=== PATIENT | male | born 1940 | race Caucasian/White ===

== ENCOUNTER 2017-01-18 13:44 | Outpatient (RCR) | payer MEDICARE, OTHER ==
[~2017-01-18 13:44] MED LIST: AML5T; AMLO10TA82 PO; AMLO5TAB2 PO; ASP81TEC PO; ASPI-586 PO; BISA5TAB8 PO; CHLO-159 PO; CIPR-17 PO; CIPR500T78 PO; DXZS4T; HYDR-2890 PO; HYDR-707 PO; HYOS0.1216 PO; IBUP-15 PO; LISI20TA PO; LISI40TA PO; MELOXICAM 7.5 MG; PANT20TA3 PO; PHEN200T27 PO; [UNRECOGNIZED DRUG - CODE] PO; [UNRECOGNIZED DRUG - OTHER]
--- OUTSIDE RECORDS SUMMARY | 2017-01-18 13:47 | XMS REPORT | Continuity of Care Document ---
Author Author [facility] Organization [facility] Address Unknown Phone Unavailable Care Team Providers Care Erp Programmer Name Role Phone MARINO SILVEIRA MD PCP Insurance Providers Payer Name Policy Number Subscriber Name Relationship [employer] [id number] Roberto Manley Sr 17 Self / Same As Patient Comm Crossover Enter Ins Name [id number] Roberto Manley Sr 17 Self / Same As Patient Advance Directives Directive Response Recorded Date/Time Advance Directives No 12/08/14 6:10am Health Care Power of Oracle R12 Developer No 12/08/14 6:10am Organ Donor No 12/08/14 6:10am Problems No known problems or medical conditions. Medications Medication Dose Route Sig Days/Qty Instructions Order Date Discontinued Date Status Amlodipine Besylate 10/23/07 11/23/11 Discontinued Doxazosin Mesylate 10/23/07 11/23/11 Discontinued [Mioxican 7.5MG] 10/23/07 11/23/11 Discontinued [Chloratab 4MG] 10/23/07 11/23/11 Discontinued Amlodipine Besylate (Norvasc 10 Mg) 10 Mg PO DAILY 11/23/11 Active Lisinopril 20 Mg PO DAILY 11/23/11 Active [Chloratab] 1 Tab PO DAILY 11/23/11 12/03/14 Discontinued Ciprofloxacin 1 Tab PO DAILY 11/29/11 12/14/11 Discontinued Acetaminophen/Hydrocodone Bitart 1 - 2 Each PO Q 4 - 6 HR PRN 45 Qty 12/08/14 Discontinued Bisacodyl 5 Mg PO DAILY 01/10/12 12/03/14 Discontinued Ibuprofen 200 Mg PO BEDTIME 4 Qty take 4 tabs at bedtime 01/10/12 Discontinued Chlorpheniramine Maleate 4 Mg PO DAILY 12/03/14 Active Ciprofloxacin HCl 500 Mg PO TWICE A DAY 14 Qty DAY FOR 7 DAYS. USE ALL OF THIS 12/08/14 Active Phenazopyridine HCl 1 Each PO TID PRN 20 Qty FOR BLADDER SPASMS. Active Hyoscyamine Sulfate 1-2 Each PO Q4HR PRN 30 Qty 12/08/14 Active Hydrocodone Bit/Acetaminophen 1-2 Tab PO EVERY 4HRS For Pain 20 Qty MAY TAKE 1 OR 2 TABLETS BY MOUTH 12/08/14 Active Social History Social History Problem Response Recorded Date/Time Recent Foreign Travel N [place] 10/13/2014 1:22pm Hospital Discharge Instructions No hospital discharge instructions. Plan of Care No plan of care. Functional Status No functional status results. Allergies, Adverse Reactions, Alerts Allergen Type Severity Reaction Status Last Updated Penicillins ([id number]) Allergy Intermediate HIVES Active 10/23/07 Immunizations Name Given Type Date of Pneumonia Vaccine 11/26/12 Historical Date of Influenza Vaccine 09/14/14 Historical Vital Signs No known vital signs results. Results No known relevant diagnostic tests, laboratory data and/or discharge summary. Procedures No known history of procedures. Encounters Encounter Location Date/Time Discharged [facility] 12/14/14 1:09pm
[2017-01-18 14:19] LABS: BASOPHILS # (AUTO) 0.1 10^3/uL (0.0-0.1); BASOPHILS % (AUTO) 1 % (0-10); EOSINOPHILS # (AUTO) 0.2 10^3/uL (0.0-0.3); EOSINOPHILS % (AUTO) 3 % (0-10); LYMPHOCYTES % (AUTO) 24 % (12-44); MEAN CORPUSCULAR HEMOGLOBIN 31 PG (25-34); MEAN CORPUSCULAR HGB CONC 33 G/DL (32-36); MEAN CORPUSCULAR VOLUME 92 FL (80-99); MEAN PLATELET VOLUME 10.7 FL (7.4-10.4); MONOCYTES # (AUTO) 0.6 X 10^3 (0.0-1.0); MONOCYTES % (AUTO) 7 % (0-12); NEUTROPHILS # (AUTO) 5.4 X 10^3 (1.8-7.8); NEUTROPHILS % (AUTO) 66 % (42-75); PLATELET COUNT 241 10^3/uL (130-400); RED BLOOD COUNT 4.13 10^6/uL (4.35-5.85); RED CELL DISTRIBUTION WIDTH 12.9 % (10.0-14.5); WHITE BLOOD COUNT 8.3 10^3/uL (4.3-11.0)
[2017-01-18 14:40] LABS: ALANINE AMINOTRANSFERASE 20 U/L (0-55); ALBUMIN 4.2 G/DL (3.2-4.5); ANION GAP 10 MMOL/L (5-14); ASPARTATE AMINO TRANSFERASE 36 U/L (5-34); BILIRUBIN,TOTAL 0.6 MG/DL (0.1-1.0); BLOOD UREA NITROGEN 19 MG/DL (7-18); BUN/CREATININE RATIO 21; CALCIUM 9.1 MG/DL (8.5-10.1); CARBON DIOXIDE 24 MMOL/L (21-32); CHLORIDE 105 MMOL/L (98-107); CREATININE SERUM 0.92 MG/DL (0.60-1.30); GFR ESTIMATED > 60; GLUCOSE 93 MG/DL (70-105); POTASSIUM 4.4 MMOL/L (3.6-5.0); SODIUM 139 MMOL/L (135-145); TOTAL PROTEIN 6.8 G/DL (6.4-8.2)
[2017-01-18 15:44] LABS: BILIRUBIN,URINE NEGATIVE (NEGATIVE); KETONES,URINE NEGATIVE (NEGATIVE); LEUKOCYTE ESTERASE ,URINE NEGATIVE (NEGATIVE); NITRITE,URINE NEGATIVE (NEGATIVE); PH,URINE 7 (5-9); PROTEIN,URINE NEGATIVE (NEGATIVE); UROBILINOGEN,URINE NORMAL (NORMAL)
[2017-01-18 15:52] LABS: SQUAMOUS EPITHELIAL CELL,UR RARE /HPF
== END 2017-04-18 | disposition home or self-care (01) ==
LOC: ONC 13:44
PROVIDERS: ATTEND Internal Medicine Hematology & Oncology
DX: C34.11 Malignant neoplasm of upper lobe, right bronchus or lung (principal); Z85.51 Personal history of malignant neoplasm of bladder; I10 Essential (primary) hypertension; N40.0 Benign prostatic hyperplasia without lower urinary tract symptoms; Z79.899 Other long term (current) drug therapy
CPT/HCPCS: 36415; 80053; 81000; 84153; 85025; 99213

== ENCOUNTER → 2017-07-12 | Outpatient (CLI) | payer MEDICARE, OTHER ==
[~2017-07-12] MED LIST changes: +BARIUM SUSPENSION 2.1% (VANILLA SILQ) 450 ML PO ONE; +IOHEXOL 350 MG/ML 100 ML (OMNIPAQUE 350) VIAL IV ONE; +NS 100 ML (IVPB) BAG IV ONE
--- NOTE | 2017-07-12 11:42 | Diagnostic Imaging Report ---
PROCEDURE: CT chest and abdomen with and without contrast TECHNIQUE: Multiple axial CT images through the thorax and abdomen were obtained with and without intravenous contrast. INDICATION: Lung/bladder cancer. The previous CT chest/ abdomen/ pelvis exam of 07/07/2016, noted postsurgical changes involving the periphery of the right lung base. There was scar formation involving the lung in this area and a portion of the right fifth and sixth ribs had been surgically resected. Those findings are again evident on this study and do not seem to have changed significantly. The lungs remain generally clear and well aerated otherwise. There is no sign of failure, pneumonia, or of a pleural effusion. There is no parenchymal lung mass identified. The heart size is stable and within normal limits. Aorta is not abnormally dilated, and there is no sign of a dissection. There is no defect within the pulmonary arteries to indicate a pulmonary embolus. There is no mediastinal or hilar adenopathy. The thyroid gland is generally unremarkable. The 4.9 x 7.6-cm hiatal hernia seen previously is again evident. The stomach itself is partially filled with oral contrast and difficult to assess. The liver, spleen, pancreas, adrenals, kidneys, gallbladder, aorta, and inferior vena cava show no sign of an acute abnormality. There is no mass or free fluid collection noted. The sclerotic lesions in the right pelvis seen previously are again evident and no different. There is no sign of an acute bony abnormality. IMPRESSION: 1. The appearance of the chest and abdomen appear stable when compared to the prior exam. There is no evidence for an acute abnormality, and there is no sign of neoplastic disease. 2. The postsurgical changes involving the right thorax and right lung noted on the prior exam are again evident and no different. 3. The large hiatal hernia seen previously appears stable. Dictated by: Dictated on workstation # [id number]
== END ==
LOC: RAD 09:16
PROVIDERS: ATTEND Internal Medicine Hematology & Oncology
DX: C34.11 Malignant neoplasm of upper lobe, right bronchus or lung (principal); K44.9 Diaphragmatic hernia without obstruction or gangrene; Z98.890 Other specified postprocedural states
CPT/HCPCS: 71270; 74170

== ENCOUNTER 2017-07-19 12:39 | Outpatient (RCR) | payer MEDICARE, OTHER ==
[2017-07-10 13:48] LABS: BASOPHILS # (AUTO) 0.1 10^3/uL (0.0-0.1); BASOPHILS % (AUTO) 1 % (0-10); EOSINOPHILS # (AUTO) 0.3 10^3/uL (0.0-0.3); EOSINOPHILS % (AUTO) 3 % (0-10); LYMPHOCYTES # (AUTO) 2.4 X 10^3 (1.0-4.0); LYMPHOCYTES % (AUTO) 30 % (12-44); MEAN CORPUSCULAR HEMOGLOBIN 31 PG (25-34); MEAN CORPUSCULAR HGB CONC 32 G/DL (32-36); MEAN CORPUSCULAR VOLUME 94 FL (80-99); MEAN PLATELET VOLUME 10.7 FL (7.4-10.4); MONOCYTES # (AUTO) 0.6 X 10^3 (0.0-1.0); MONOCYTES % (AUTO) 7 % (0-12); NEUTROPHILS # (AUTO) 4.8 X 10^3 (1.8-7.8); NEUTROPHILS % (AUTO) 59 % (42-75); PLATELET COUNT 234 10^3/uL (130-400); RED CELL DISTRIBUTION WIDTH 13.5 % (10.0-14.5); WHITE BLOOD COUNT 8.1 10^3/uL (4.3-11.0)
[2017-07-10 14:30] LABS: ALANINE AMINOTRANSFERASE 16 U/L (0-55); ANION GAP 7 MMOL/L (5-14); ASPARTATE AMINO TRANSFERASE 29 U/L (5-34); BILIRUBIN,TOTAL 0.9 MG/DL (0.1-1.0); BLOOD UREA NITROGEN 17 MG/DL (7-18); BUN/CREATININE RATIO 19; CALCIUM 9.5 MG/DL (8.5-10.1); CARBON DIOXIDE 29 MMOL/L (21-32); CHLORIDE 106 MMOL/L (98-107); CREATININE SERUM 0.88 MG/DL (0.60-1.30); GFR ESTIMATED > 60; GLUCOSE 123 MG/DL (70-105); POTASSIUM 4.6 MMOL/L (3.6-5.0); SODIUM 142 MMOL/L (135-145); TOTAL PROTEIN 6.6 GM/DL (6.4-8.2)
[~2017-07-19 12:39] MED LIST changes: -BARIUM SUSPENSION 2.1% (VANILLA SILQ) 450 ML PO ONE; -IOHEXOL 350 MG/ML 100 ML (OMNIPAQUE 350) VIAL IV ONE; -NS 100 ML (IVPB) BAG IV ONE
== END 2017-08-25 | disposition home or self-care (01) ==
LOC: ONC 12:39
PROVIDERS: ATTEND Internal Medicine Hematology & Oncology
DX: C34.11 Malignant neoplasm of upper lobe, right bronchus or lung (principal); Z85.51 Personal history of malignant neoplasm of bladder; I10 Essential (primary) hypertension; N40.0 Benign prostatic hyperplasia without lower urinary tract symptoms; Z79.899 Other long term (current) drug therapy
CPT/HCPCS: 36415; 80053; 84153; 85025; 99213

== ENCOUNTER 2018-01-22 13:11 | Outpatient (RCR) | payer MEDICARE, OTHER ==
[2018-01-22 13:16] LABS: BASOPHILS # (AUTO) 0.1 10^3/uL (0.0-0.1); BASOPHILS % (AUTO) 1 % (0-10); EOSINOPHILS # (AUTO) 0.3 10^3/uL (0.0-0.3); EOSINOPHILS % (AUTO) 3 % (0-10); HEMATOCRIT 37 % (40-54); HEMOGLOBIN 12.5 G/DL (13.3-17.7); LYMPHOCYTES # (AUTO) 2.4 X 10^3 (1.0-4.0); LYMPHOCYTES % (AUTO) 28 % (12-44); MEAN CORPUSCULAR HEMOGLOBIN 32 PG (25-34); MEAN CORPUSCULAR HGB CONC 34 G/DL (32-36); MEAN CORPUSCULAR VOLUME 94 FL (80-99); MEAN PLATELET VOLUME 10.7 FL (7.4-10.4); MONOCYTES # (AUTO) 0.6 X 10^3 (0.0-1.0); MONOCYTES % (AUTO) 6 % (0-12); NEUTROPHILS # (AUTO) 5.3 X 10^3 (1.8-7.8); NEUTROPHILS % (AUTO) 61 % (42-75); PLATELET COUNT 244 10^3/uL (130-400); RED BLOOD COUNT 3.97 10^6/uL (4.35-5.85); RED CELL DISTRIBUTION WIDTH 13.2 % (10.0-14.5); WHITE BLOOD COUNT 8.6 10^3/uL (4.3-11.0)
[2018-01-22 13:33] LABS: ALANINE AMINOTRANSFERASE 18 U/L (0-55); ALBUMIN 4.3 GM/DL (3.2-4.5); ALKALINE PHOSPHATASE 47 U/L (40-136); BILIRUBIN,TOTAL 0.8 MG/DL (0.1-1.0); BUN/CREATININE RATIO 23; CALCIUM 9.8 MG/DL (8.5-10.1); CARBON DIOXIDE 28 MMOL/L (21-32); CHLORIDE 104 MMOL/L (98-107); CREATININE SERUM 0.93 MG/DL (0.60-1.30); GFR ESTIMATED > 60; GLUCOSE 88 MG/DL (70-105); POTASSIUM 4.7 MMOL/L (3.6-5.0); SODIUM 140 MMOL/L (135-145); TOTAL PROTEIN 7.1 GM/DL (6.4-8.2)
== END 2018-04-22 | disposition home or self-care (01) ==
LOC: ONC 13:11
PROVIDERS: ATTEND Internal Medicine Hematology & Oncology
DX: Z08 Encounter for follow-up examination after completed treatment for malignant neoplasm (principal); Z85.118 Personal history of other malignant neoplasm of bronchus and lung; Z85.51 Personal history of malignant neoplasm of bladder; I10 Essential (primary) hypertension; N40.0 Benign prostatic hyperplasia without lower urinary tract symptoms; K44.9 Diaphragmatic hernia without obstruction or gangrene; Z79.899 Other long term (current) drug therapy; Z98.890 Other specified postprocedural states; Z92.21 Personal history of antineoplastic chemotherapy
CPT/HCPCS: 36415; 80053; 85025

== ENCOUNTER → 2018-07-15 | Outpatient (CLI) | payer MEDICARE, OTHER ==
--- NOTE | 2018-07-15 10:00 | Diagnostic Imaging Report ---
PROCEDURE: CT chest without contrast. TECHNIQUE: Multiple contiguous axial images were obtained through the chest without the use of intravenous contrast. INDICATION: Lung carcinoma. Comparison is made with prior CT chest from 07/12/2017. A low dose protocol was used. Overall image quality is limited due to low-dose technique. No definite axillary lymphadenopathy is seen. Hilar and mediastinal evaluation is limited without intravenous contrast but no gross abnormality seen. There are some calcified lymph nodes in the right hilum and left hilum likely owing to prior granulomatous exposure. Coronary arterial opacifications are present. No pericardial or pleural fluid is seen. There is a large hiatal hernia. Postsurgical changes in the right hemithorax with area of scarring in the lateral portion of the right base is again noted and similar to the prior study. There is some scarring in the lingula as well. No discrete mass is identified. The central airways are patent. IMPRESSION: Stable noncontrast CT chest when compared with exam from one year earlier. Parenchymal scarring is again seen with postsurgical changes. No recurrent mass or evidence of thoracic lymphadenopathy is detected. Dictated by: Dictated on workstation # [id number]
== END ==
LOC: RAD 08:35
PROVIDERS: ATTEND Nurse Practitioner Adult Health
DX: C34.11 Malignant neoplasm of upper lobe, right bronchus or lung (principal)
CPT/HCPCS: 71250

== ENCOUNTER 2018-07-24 12:55 | Outpatient (RCR) | payer MEDICARE, OTHER ==
[2018-07-11 13:35] LABS: BASOPHILS # (AUTO) 0.1 10^3/uL (0.0-0.1); BASOPHILS % (AUTO) 1 % (0-10); EOSINOPHILS # (AUTO) 0.2 10^3/uL (0.0-0.3); EOSINOPHILS % (AUTO) 3 % (0-10); HEMATOCRIT 35 % (40-54); HEMOGLOBIN 11.6 G/DL (13.3-17.7); LYMPHOCYTES # (AUTO) 2.4 X 10^3 (1.0-4.0); LYMPHOCYTES % (AUTO) 30 % (12-44); MEAN CORPUSCULAR HEMOGLOBIN 31 PG (25-34); MEAN CORPUSCULAR HGB CONC 33 G/DL (32-36); MEAN CORPUSCULAR VOLUME 93 FL (80-99); MEAN PLATELET VOLUME 10.6 FL (7.4-10.4); MONOCYTES # (AUTO) 0.5 X 10^3 (0.0-1.0); MONOCYTES % (AUTO) 7 % (0-12); NEUTROPHILS # (AUTO) 4.7 X 10^3 (1.8-7.8); NEUTROPHILS % (AUTO) 59 % (42-75); PLATELET COUNT 248 10^3/uL (130-400); RED BLOOD COUNT 3.76 10^6/uL (4.35-5.85); RED CELL DISTRIBUTION WIDTH 13.6 % (10.0-14.5); WHITE BLOOD COUNT 7.9 10^3/uL (4.3-11.0)
[2018-07-11 13:56] LABS: ALANINE AMINOTRANSFERASE 20 U/L (0-55); ALKALINE PHOSPHATASE 41 U/L (40-136); BILIRUBIN,TOTAL 0.8 MG/DL (0.1-1.0); BUN/CREATININE RATIO 18; CALCIUM 9.5 MG/DL (8.5-10.1); CARBON DIOXIDE 27 MMOL/L (21-32); CHLORIDE 104 MMOL/L (98-107); CREATININE SERUM 0.94 MG/DL (0.60-1.30); GFR ESTIMATED > 60; GLUCOSE 93 MG/DL (70-105); POTASSIUM 4.6 MMOL/L (3.6-5.0); SODIUM 139 MMOL/L (135-145); TOTAL PROTEIN 6.5 GM/DL (6.4-8.2)
[~2018-07-24 12:55] MED LIST changes: -AMLO5TAB2 PO; +AMLO5TAB7 PO
== END 2018-07-26 | disposition home or self-care (01) ==
LOC: ONC 12:55
PROVIDERS: ATTEND Internal Medicine Hematology & Oncology
DX: Z08 Encounter for follow-up examination after completed treatment for malignant neoplasm (principal); Z85.118 Personal history of other malignant neoplasm of bronchus and lung; Z85.51 Personal history of malignant neoplasm of bladder; I10 Essential (primary) hypertension; N40.0 Benign prostatic hyperplasia without lower urinary tract symptoms; K44.9 Diaphragmatic hernia without obstruction or gangrene; Z79.899 Other long term (current) drug therapy; Z98.890 Other specified postprocedural states; Z92.21 Personal history of antineoplastic chemotherapy
CPT/HCPCS: 36415; 80053; 85025; 99213

== ENCOUNTER 2019-01-10 05:39 | Outpatient (CLI) | payer MEDICARE, OTHER ==
[~2019-01-10] VITALS: Ht 177.8 cm; Wt 70.3 kg
== END 2019-01-10 15:13 | disposition home or self-care (01) ==
LOC: PREOP 05:39
PROVIDERS: ATTEND Urology
DX: Z01.818 Encounter for other preprocedural examination (principal)

== ENCOUNTER 2019-01-14 06:06 | Day surgery (SDC) | payer MEDICARE, OTHER ==
[~2019-01-14] VITALS: Ht 177.8 cm; Wt 70.3 kg
[~2019-01-14 06:06] MED LIST changes: +AMLO10TA7 PO; -AMLO5TAB7 PO; +AMLO5TAB9 PO; +CHLO4TAB36 PO; +MULT-1056 PO
--- OUTSIDE RECORDS SUMMARY | 2019-01-14 06:10 | XMS REPORT ---
Author Author PHUC STRAUSS [facility] Address Unknown Care Team Providers Care Mobile Service Rv Technician Name Role Phone PHUC STRAUSS Unavailable PROBLEMS Unknown Problems ALLERGIES No Information ENCOUNTERS Encounter Location Date Diagnosis [facility] [id number] [place] [address] [id number] Sep, Encounter for dental examination Z01.[address] [facility] [id number] [place] [address] [id number] March, Dental examination Z01.[address] [facility] [id number] [place] [address] [id number] Dec, Encounter for dental examination Z01.20 IMMUNIZATIONS No Known Immunizations SOCIAL HISTORY Never Assessed REASON FOR VISIT shantel PLAN OF CARE VITAL SIGNS MEDICATIONS No Known Medications RESULTS No Results PROCEDURES Procedure Date Ordered Result Body Site COMP ORAL EVALUATION - NEW/EST PT April 13, 2017 INTRAORL-PERIAPICAL 1 FILM [id number] April 13, 2017 INSTRUCTIONS MEDICATIONS ADMINISTERED No Known Medications MEDICAL (GENERAL) HISTORY Type Description Date Medical History High Blood Pressure Medical History Rt hip replacment 7 years ago Medical History Bladder Cancer/Chemo Surgical History Bladder Cancer Surgical History 3/4 Rt lung removed 2011 Surgical History Rt Hip replacment 2009 Hospitalization History Hospitalization for surgery only
--- OUTSIDE RECORDS SUMMARY | 2019-01-14 06:10 | XMS REPORT ---
Author Author PIETRO ORR Organization [facility] Address [address] [place] [address] Care Team Providers Care Last Repairer Helper Name Role Phone PIETRO ORR Unavailable PROBLEMS Type Condition ICD9-CM Code [id number] Code Onset Dates Condition Status SNOMED Code Problem Encounter for dental examination Z01.20 Active [id number] ALLERGIES Substance Reaction Event Type Date Status Penicillin V Potassium Unknown Drug Allergy Dec, Active SOCIAL HISTORY Never Assessed PLAN OF CARE Activity Details Follow Up 6 Months Reason:Recall VITAL SIGNS Heart Rate 61 bpm 2017-01-09 Blood pressure systolic 155 mmHg 2017-01-09 Blood pressure diastolic 79 mmHg 2017-01-09 MEDICATIONS Medication Instructions Dosage Frequency Start Date End Date Duration Status Lisinopril 40 MG Orally Once a day 1 tablet 24h Active Pantoprazole Sodium 20 MG Orally Once a day 2 tablets 24h Active ASA 1 tab Active Amlodipine & Diet Manage Prod Active Chlor-Trimeton 4 MG Orally every 6 hrs 1 tablet as needed 6h Active RESULTS No Results PROCEDURES Procedure Date Ordered Result Body Site LTD ORAL EVALUATION - PROBLEM FOCUS Jan 09, 2017 PROPHYLAXIS - ADULT Jan 09, 2017 TOPICAL FLUORIDE VARNISH Jan 09, 2017 IMMUNIZATIONS No Known Immunizations MEDICAL (GENERAL) HISTORY Type Description Date Medical History High Blood Pressure Medical History Rt hip replacment 7 years ago Medical History Bladder Cancer/Chemo Surgical History Bladder Cancer Surgical History 3/4 Rt lung removed 2011 Surgical History Rt Hip replacment 2009 Hospitalization History Hospitalization for surgery only
--- OUTSIDE RECORDS SUMMARY | 2019-01-14 06:12 | XMS REPORT | Continuity of Care Document ---
Author Author [facility] Organization [facility] Address Unknown Phone Unavailable Allergies Active Description Code Type Severity Reaction Onset Reported/Identified Relationship to Patient Clinical Status Yes NO KNOWN DRUG ALLERGIES UNKNOWN NO KNOWN DRUG ALLERG Yes Penicillins [id number] Drug Allergy Moderate HIVES 10/23/2007 Medications There is no data. Problems Date Dx Coded Attending Type Code Diagnosis Diagnosed By 12/21/2011 Ot 162.3 12/21/2011 Ot V10.51 12/21/2011 Ot V15.82 12/21/2011 Ot V64.41 04/16/2012 Ot 162.3 04/16/2012 Ot 401.9 04/16/2012 Ot 600.00 04/16/2012 Ot V10.51 04/16/2012 Ot V58.11 04/16/2012 Ot V58.69 07/22/2012 Ot 162.3 07/22/2012 Ot 401.9 07/22/2012 Ot 600.00 07/22/2012 Ot V10.51 07/22/2012 Ot V58.69 10/24/2012 Ot 162.3 10/24/2012 Ot 401.9 10/24/2012 Ot 600.00 10/24/2012 Ot V10.51 10/24/2012 Ot V58.69 10/24/2012 Ot V58.81 01/26/2013 Ot 162.3 01/26/2013 Ot 401.9 01/26/2013 Ot 600.00 01/26/2013 Ot V10.51 01/26/2013 Ot V58.69 01/26/2013 Ot V58.81 05/08/2013 Ot 162.3 05/08/2013 Ot 401.9 05/08/2013 Ot 600.00 05/08/2013 Ot V10.51 05/08/2013 Ot V58.69 05/08/2013 Ot V58.81 10/12/2014 MARINO SILVEIRA MD Ot 162.3 10/12/2014 MARINO SILVEIRA MD Ot 401.9 10/12/2014 RAOUL BOWDEN, MARINO K Ot 600.00 10/12/2014 RAOUL BOWDEN, MARINO K Ot V10.51 10/12/2014 RAOUL BOWDEN, MARINO K Ot V58.69 10/12/2014 RAOUL BOWDEN, MARINO K Ot V58.81 10/13/2014 RAOUL BOWDEN, MARINO K Ot 162.3 10/13/2014 RAOUL BOWDEN, MARINO K Ot 401.9 10/13/2014 RAOUL BOWDEN, MARINO K Ot 600.00 10/13/2014 RAOUL BOWDEN, MARINO K Ot V10.51 10/13/2014 RAOUL BOWDEN, MARINO K Ot V58.69 10/13/2014 RAOUL BOWDEN, MARINO K Ot V58.81 10/14/2014 RAOUL BOWDEN, MARINO K Ot 162.3 10/14/2014 RAOUL BOWDEN, MARINO K Ot 401.9 10/14/2014 RAOUL BOWDEN, MARINO K Ot 600.00 10/14/2014 RAOUL BOWDEN, MARINO K Ot V10.51 10/14/2014 RAOUL BOWDEN, MARINO K Ot V58.69 10/14/2014 RAOUL BOWDEN, MARINO K Ot V58.81 11/25/2014 RAOUL BOWDEN, MARINO K Ot 162.3 11/25/2014 RAOUL BOWDEN, MARINO K Ot 401.9 11/25/2014 RAOUL BOWDEN, MARINO K Ot 600.00 11/25/2014 RAOUL BOWDNE, MARINO K Ot V10.51 11/25/2014 RAOUL BOWDEN, MARINO K Ot V58.69 11/25/2014 RAOUL BOWDEN, MARINO K Ot V58.81 12/01/2014 RAOUL BOWDEN, MARINO Barbara Ot 162.3 12/01/2014 RAOUL BOWDEN, MARINO K Ot 401.9 12/01/2014 RAOUL BOWDEN, MARINO K Ot 600.00 12/01/2014 RAOUL BOWDEN, MARINO K Ot V10.51 12/01/2014 RAOUL BOWDEN, MARINO K Ot V58.69 12/01/2014 RAOUL BOWDEN, MARINO K Ot V58.81 12/07/2014 BABATUNDE BOWDEN, KEEGAN Duarte Ot 239.4 12/07/2014 BABATUNDE BOWDEN, KEEGAN Duarte Ot V72.83 12/07/2014 BABATUNDE BOWDEN, KEEGAN Duarte Ot V74.8 12/08/2014 RAOUL BOWDEN, MARINO Jimenez Ot 162.9 12/08/2014 RAOUL BOWDEN, MARINO Barbara Ot 162.3 12/08/2014 RAOUL BOWDEN, MARINO Jimenez Ot 162.3 12/08/2014 RAOUL BOWDEN, MARINO Jimenez Ot 401.9 12/08/2014 RAOUL BOWDEN, MARINO Jimenez Ot 600.00 12/08/2014 RAOUL BOWDEN, MARINO Jimenez Ot V10.51 12/08/2014 RAOUL BOWDEN, MARINO Jimenez Ot V58.69 12/08/2014 RAOUL BOWDEN, MARINO Jimenez Ot V58.81 12/08/2014 BABATUNDE BOWDEN, KEEGAN A Ot 239.4 12/08/2014 BABATUNDE BOWDEN, KEEGAN A Ot V72.83 12/08/2014 BABATUNDE BOWDEN, KEEGAN A Ot V74.8 12/08/2014 BABATUNDE BOWDEN, KEEGAN A Ot 188.9 MALIG J LUIS BLADDER NOS 12/08/2014 BABATUNDE BOWDEN, KEEGAN A Ot 239.4 12/26/2014 BABATUNDE BOWDEN, KEEGAN A Ot 239.4 12/26/2014 BABATUNDE BOWDEN, KEEGAN A Ot V72.83 12/26/2014 BABATUNDE BOWDEN, KEEGAN A Ot V74.8 01/04/2015 BABATUNDE BOWDEN, KEEGAN A Ot 239.4 01/04/2015 BABATUNDE BOWDEN, KEEGAN A Ot V72.83 01/04/2015 BABATUNDE BOWDEN, KEEGAN A Ot V74.8 01/11/2015 RAOUL BOWDNE, MARINO Jimenez Ot 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 01/11/2015 RAOUL BOWDEN, MARINO Jimenez Ot 401.9 HYPERTENSION NOS 01/11/2015 RAOUL BOWDEN, MARINO Jimenez Ot 600.00 HYPERTROPHY (BENIGN) OF PROSTATE W/O URI 01/11/2015 RAOUL BOWDEN, MARINO Jimenez Ot V10.51 HX OF BLADDER MALIGNANCY 01/11/2015 RAOUL BOWDEN, MARINO Jimenez Ot V58.69 OT MED,LT,CURRENT USE 01/11/2015 RAOUL BOWDEN, MARINO Jimenze Ot V58.81 FIT/ADJ VASCULAR CATHETER 01/15/2015 RAOUL BOWDEN, MARINO Jimenez Ot 162.3 01/15/2015 RAOUL BOWDEN, MARINO Jimenez Ot 401.9 01/15/2015 RAOUL BOWDEN, MARINO Jimenez Ot 600.00 01/15/2015 RAOUL BOWDEN, MARINO Jimenez Ot V10.51 01/15/2015 RAOUL BOWDEN, MARINO Jimenez Ot V58.69 01/15/2015 RAOUL BOWDEN, MARINO Jimenez Ot V58.81 01/18/2015 RAOUL BOWDEN, MARINO Jimenez Ot 162.3 01/18/2015 RAOUL BOWDEN, MARINO Jimenez Ot 401.9 01/18/2015 RAOUL BOWDEN, MARINO Jimenez Ot 600.00 01/18/2015 RAOUL BOWDEN, MARINO Jimenez Ot V10.51 01/18/2015 RAOUL BOWDEN, MARINO Jimenez Ot V58.69 01/18/2015 RAOUL BOWDEN, MARINO Jimenez Ot V58.81 01/18/2015 RAOUL BOWDEN, MARINO Jimenez Ot 162.3 01/18/2015 RAOUL BOWDEN, MARINO Jimenez Ot 401.9 01/18/2015 RAOUL BOWDEN, MARINO Jimenez Ot 600.00 01/18/2015 RAOUL BOWDEN, MARINO Jimenez Ot V10.51 01/18/2015 RAOUL BOWDEN, MARINO Jimenez Ot V58.69 01/18/2015 RAOUL BOWDEN, MARINO Jimenez Ot V58.81 01/20/2015 Ot 600.00 01/20/2015 Ot V72.81 01/20/2015 Ot V72.83 01/20/2015 Ot 604.90 01/20/2015 Ot 599.70 01/20/2015 Ot 239.4 01/20/2015 Ot 791.9 01/20/2015 Ot V72.63 01/20/2015 Ot V72.81 01/20/2015 Ot V72.83 01/20/2015 Ot V74.8 01/20/2015 Ot 786.6 01/20/2015 Ot 786.6 01/20/2015 Ot V72.63 01/20/2015 Ot V74.8 01/20/2015 Ot 162.9 01/20/2015 Ot V72.83 01/20/2015 Ot 162.9 01/20/2015 Ot 162.9 01/20/2015 Ot 162.9 01/20/2015 Ot 553.3 01/20/2015 Ot 162.9 01/20/2015 Ot 188.9 01/20/2015 Ot 553.3 01/20/2015 Ot 162.9 01/20/2015 RAOUL BOWDEN, MARINO Jimenez Ot 162.9 01/20/2015 RAOUL BOWDEN, MARINO Jimenez Ot 162.3 01/20/2015 RAOUL BOWDEN, MARINO Jimenez Ot 162.3 01/20/2015 RAOUL BOWDEN, MARINO Jimenez Ot 401.9 01/20/2015 RAOUL BOWDEN, MARINO Jimenez Ot 600.00 01/20/2015 RAOUL BOWDEN, MRAINO Jimenez Ot V10.51 01/20/2015 RAOUL BOWDEN, MARINO Jimenez Ot V58.69 01/20/2015 RAOUL BOWDEN, MARINO Jimenez Ot V58.81 02/22/2015 RAOUL BOWDEN, MARINO Jimenez Ot 162.3 02/22/2015 RAOUL BOWDEN, MARINO Jimenez Ot 401.9 02/22/2015 RAOUL BOWDEN, MARINO Jimenez Ot 600.00 02/22/2015 RAOUL BOWDEN, MARINO Jimenez Ot V10.51 02/22/2015 RAOUL BOWDNE, MARINO Jimenez Ot V58.69 02/22/2015 RAOUL BOWDEN, MARINO Jimenez Ot V58.81 02/22/2015 RAOUL BOWDEN, MARINO Jimenez Ot 162.3 02/22/2015 RAOUL BOWDEN, MARINO Jimenez Ot 401.9 02/22/2015 RAOUL BOWDEN, MARINO Jimenez Ot 600.00 02/22/2015 RAOUL BOWDEN, MARINO Jimenez Ot V10.51 02/22/2015 RAOUL BOWDEN, MARINO Jimenez Ot V58.69 02/22/2015 RAOUL BOWDEN, MARINO Jimenez Ot V58.81 03/24/2015 RAOUL BOWDEN, MARINO Jimenez Ot 162.3 03/24/2015 RAOUL BOWDEN, MARINO Jimenez Ot 553.3 04/15/2015 RAOUL BOWDEN, MARINO Jimenez Ot 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 04/15/2015 RAOUL BOWDEN, MARINO Jimenez Ot 401.9 HYPERTENSION NOS 04/15/2015 RAOUL BOWDEN, MARINO Jimenez Ot 600.00 HYPERTROPHY (BENIGN) OF PROSTATE W/O URI 04/15/2015 RAOUL BOWDEN, MARINO Jimenez Ot V10.51 HX OF BLADDER MALIGNANCY 04/15/2015 RAOUL BOWDEN, MARINO Jimenez Ot V58.69 OT MED,LT,CURRENT USE 04/15/2015 RAOUL BOWDEN, MARINO Jimenez Ot V58.81 FIT/ADJ VASCULAR CATHETER 04/16/2015 RAOUL BOWDEN, MARINO Jimenez Ot 162.3 04/16/2015 RAOUL BOWDEN, MARINO Jimenez Ot 553.3 05/12/2015 RAOUL BOWDEN, MARINO Jimenez Ot 162.3 05/12/2015 RAOUL BOWDEN, MARINO Jimenez Ot 401.9 05/12/2015 RAOUL BOWDEN, MARINO Jimenez Ot 600.00 05/12/2015 RAOUL BOWDEN, MARINO Jimenez Ot V10.51 05/12/2015 RAOUL BOWDEN, MARINO Jimenez Ot V58.69 05/12/2015 RAOUL BOWDEN, MARINO Jimenez Ot V58.81 05/18/2015 RAOUL BOWDEN, MARINO Jimenez Ot 162.3 05/18/2015 RAOUL BOWDEN, MARINO Jimenez Ot 401.9 05/18/2015 RAOUL BOWDEN, MARINO Jimenez Ot 600.00 05/18/2015 RAOUL BOWDEN, MARINO K Ot V10.51 05/18/2015 RAOUL BOWDEN, MARINO K Ot V58.69 05/18/2015 RAOUL BOWDEN, MARINO K Ot V58.81 2015 RAOUL BOWDEN, MARINO K Ot 162.3 2015 RAOUL BOWDEN, MARINO K Ot 401.9 2015 RAOUL BOWDEN, MARINO K Ot 600.00 2015 RAOUL BOWDEN, MARINO K Ot V10.51 2015 RAOUL BOWDEN, MARINO K Ot V58.69 2015 RAOUL BOWDEN, MARINO K Ot V58.81 05/24/2015 RAOUL BOWDEN, MARINO K Ot 162.3 05/24/2015 RAOUL BOWDEN, MARINO K Ot 401.9 05/24/2015 RAOUL BOWDEN, MARINO K Ot 600.00 05/24/2015 RAOUL BOWDEN, MARINO K Ot V10.51 05/24/2015 RAOUL BOWDEN, MARINO K Ot V58.69 05/24/2015 RAOUL BOWDEN, MARINO K Ot V58.81 06/17/2015 RAOUL BOWDEN, MARINO K Ot 162.3 06/17/2015 RAOUL BOWDEN, MARINO K Ot 401.9 06/17/2015 RAOUL BOWDEN, MARINO K Ot 600.00 06/17/2015 RAOUL BOWDEN, MARINO K Ot V10.51 06/17/2015 RAOUL BOWDEN, MARINO K Ot V58.69 06/17/2015 RAOUL BOWDEN, MARINO K Ot V58.81 06/25/2015 RAOUL BOWDEN, MARINO K Ot 162.9 06/25/2015 RAOUL BOWDEN, MARINO K Ot 162.3 06/25/2015 BABATUNDE BOWDEN, KEEGAN A Ot 239.4 06/25/2015 BABATUNDE BOWDEN, KEEGAN A Ot V72.83 06/25/2015 BABATUNDE BOWDEN, KEEGAN A Ot V74.8 06/25/2015 RAOUL BOWDEN, MARINO K Ot 162.3 06/25/2015 RAOUL BOWDEN, MARINO K Ot 401.9 06/25/2015 RAOUL BOWDEN, MARINO K Ot 600.00 06/25/2015 RAOUL BOWDEN, MARINO K Ot V10.51 06/25/2015 RAOUL BOWDEN, MARINO K Ot V58.69 06/25/2015 RAOUL BOWDEN, MARINO K Ot V58.81 06/25/2015 RAOUL BOWDEN, MARINO Barbara Ot 162.3 06/25/2015 RAOUL BOWDEN, MARINO K Ot 401.9 06/25/2015 MARINO SILVEIRA MD Ot 600.00 06/25/2015 MARINO SILVEIRA MD Ot V10.51 06/25/2015 MARINO SILVEIRA MD, Ot V58.69 06/25/2015 RAOUL BOWDEN, MARINO Jimenez Ot V58.81 08/16/2015 MARINO SILVEIRA MD Ot 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 08/16/2015 MARINO SILVEIRA MD Ot 401.9 HYPERTENSION NOS 08/16/2015 MARINO SILVEIRA MD Ot 600.00 HYPERTROPHY (BENIGN) OF PROSTATE W/O URI 08/16/2015 MARINO SILVEIRA MD, Ot 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, UNSP B 08/16/2015 MARINO SILVEIRA MD Ot I10 ESSENTIAL (PRIMARY) HYPERTENSION 08/16/2015 MARINO SILVEIRA MD, Ot N40.0 ENLARGED PROSTATE WITHOUT LOWER URINARY 08/16/2015 MARINO SILVEIRA MD Ot V10.51 HX OF BLADDER MALIGNANCY 08/16/2015 MARINO SILVEIRA MD, Ot V58.69 OTH MED,LT,CURRENT USE 08/16/2015 MARINO SILVEIRA MD, Ot V58.81 FIT/ADJ VASCULAR CATHETER 08/16/2015 MARINO SILVEIRA MD Ot Z45.2 ENCOUNTER FOR ADJUSTMENT AND MANAGEMENT 08/16/2015 MARINO SILVEIRA MD Ot Z85.51 PERSONAL HISTORY OF MALIGNANT NEOPLASM O 08/19/2015 MARINO SILVEIRA MD Ot 162.3 08/19/2015 RAOUL BOWDEN, MARINO Jimenez Ot 401.9 08/19/2015 RAOUL BOWDEN, MARINO Jimenez Ot 600.00 08/19/2015 RAOUL BOWDEN, MARINO Jimenez Ot V10.51 08/19/2015 RAOUL BOWDEN, MARINO Jimenez Ot V58.69 08/19/2015 RAOUL BOWDEN, MARINO Jimenez Ot V58.81 08/20/2015 RAOUL BOWDEN, MARINO Jimenez Ot 162.3 08/20/2015 RAOUL BOWDEN, MARINO Jimenez Ot 401.9 08/20/2015 RAOUL BOWDEN, MARINO Jimenez Ot 600.00 08/20/2015 RAOUL BOWDEN, MARINO Jimenez Ot V10.51 08/20/2015 RAOUL BOWDEN, MARINO Jimenez Ot V58.69 08/20/2015 RAOUL BOWDEN, MARINO Jimenez Ot V58.81 08/23/2015 RAOUL BOWDEN, MARINO Jimenez Ot 162.3 08/23/2015 RAOUL BOWDEN, MARINO Jimenez Ot 401.9 08/23/2015 RAOUL BOWDEN, MARINO Jimenez Ot 600.00 08/23/2015 RAOUL MD, MARINO K Ot V10.51 08/23/2015 RAOUL BOWDEN, MARINO K Ot V58.69 08/23/2015 RAOUL BOWDEN, MARINO K Ot V58.81 08/23/2015 RAOUL BOWDEN, MARINO K Ot 162.9 08/23/2015 RAOUL BOWDEN, MARINO K Ot 162.3 08/23/2015 BABATUNDE BOWDEN, KEEGAN A Ot 239.4 08/23/2015 BABATUNDE BOWDEN, KEEGAN A Ot V72.83 08/23/2015 BABATUNDE BOWDEN, KEEGAN A Ot V74.8 08/23/2015 RAOUL BOWDNE, MARINO K Ot 162.3 08/23/2015 RAOUL BOWDEN, MARINO K Ot 401.9 08/23/2015 RAOUL BOWDEN, MARINO K Ot 600.00 08/23/2015 RAOUL BOWDEN, MARINO K Ot 791.9 08/23/2015 RAOUL BOWDEN, MARINO K Ot V10.51 08/23/2015 RAOUL BOWDEN, MARINO K Ot V58.69 08/24/2015 RAOUL BOWDEN, MARINO K Ot 162.9 08/24/2015 RAOUL BOWDEN, MARINO K Ot 162.3 08/24/2015 BABATUNDE BOWDEN, KEEGAN A Ot 239.4 08/24/2015 BABATUNDE BOWDEN, KEEGAN A Ot V72.83 08/24/2015 BABATUNDE BOWDEN, KEEGAN A Ot V74.8 08/24/2015 RAOUL BOWDEN, MARINO K Ot 162.3 08/24/2015 RAOUL BOWDEN, MARINO K Ot 162.3 08/24/2015 RAOUL BOWDEN, MARINO K Ot 401.9 08/24/2015 RAOUL BOWDEN, MARINO K Ot 600.00 08/24/2015 RAOUL BOWDEN, MARINO K Ot 791.9 08/24/2015 RAOUL BOWDEN, MARINO K Ot V10.51 08/24/2015 RAOUL BOWDEN, MARINO K Ot V58.69 08/24/2015 RAOUL BOWDEN, MARINO K Ot 162.9 08/24/2015 RAOUL BOWDEN, MARINO K Ot 162.3 08/24/2015 BABATUNDE BOWDEN, KEEGAN A Ot 239.4 08/24/2015 BABATUNDE BOWDEN, KEEGAN A Ot V72.83 08/24/2015 BABATUNDE BOWDEN, KEEGAN A Ot V74.8 08/24/2015 RAOUL BOWDEN, MARINO K Ot 162.3 08/24/2015 RAOUL BOWDEN, MARINO K Ot 162.3 08/24/2015 RAOUL BOWDEN, MARINO Jimenez Ot 401.9 08/24/2015 RAOUL BOWDEN, MARINO Jimenez Ot 600.00 08/24/2015 RAOUL BOWDEN, MARINO Jimenez Ot 791.9 08/24/2015 RAOUL BOWDEN, MARINO Jimenez Ot V10.51 08/24/2015 MARINO SILVEIRA MD Ot V58.69 08/24/2015 RAOUL BOWDEN, MARINO Jimenez Ot 162.9 08/24/2015 RAOUL BOWDEN, MARINO Jimenez Ot 162.3 08/24/2015 BABATUNDE BOWDEN, KEEGAN Duarte Ot 239.4 08/24/2015 BABATUNDE BOWDEN, KEEGAN A Ot V72.83 08/24/2015 BABATUNDE BOWDEN, KEEGAN Duarte Ot V74.8 08/24/2015 RAOUL BOWDEN, MARINO Jimenez Ot 162.3 08/24/2015 RAOUL BOWDEN, MARINO Jimenez Ot 162.3 08/24/2015 MARINO SILVEIRA MD Ot 401.9 08/24/2015 RAOUL BOWDEN, MARINO Jimenez Ot 600.00 08/24/2015 MARINO SILVEIRA MD Ot 791.9 08/24/2015 MARINO SILVEIRA MD Ot V10.51 08/24/2015 MARINO SILVEIRA MD Ot V58.69 08/25/2015 MARINO SILVEIRA MD Ot 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 08/25/2015 RAOUL BOWDEN, MARINO Jimenez Ot 401.9 HYPERTENSION NOS 08/25/2015 MARINO SILVEIRA MD Ot 600.00 HYPERTROPHY (BENIGN) OF PROSTATE W/O URI 08/25/2015 MARINO SILVEIRA MD Ot 791.9 ABN URINE FINDINGS NEC 08/25/2015 MARINO SILVEIRA MD Ot V10.51 HX OF BLADDER MALIGNANCY 08/25/2015 MARINO SILVEIRA MD Ot V58.69 OTH MED,LT,CURRENT USE 09/02/2015 MARINO SILVEIRA MD Ot 162.3 09/02/2015 MARINO SILVEIRA MD Ot 401.9 09/02/2015 MARINO SILVEIRA MD Ot 600.00 09/02/2015 MARINO SILVEIRA MD Ot 791.9 09/02/2015 MARINO SILVEIRA MD Ot V10.51 09/02/2015 MARINO SILVEIRA MD Ot V58.69 09/16/2015 MARINO SILVEIRA MD Ot 162.3 09/27/2015 MARINO SILVEIRA MD Ot 162.3 11/13/2015 MARINO SILVEIRA MD Ot 162.3 11/13/2015 RAOUL BOWDEN, MARINO Jimenez Ot 401.9 11/13/2015 RAOUL BOWDEN, MARINO Jimenez Ot 600.00 11/13/2015 RAOUL BOWDEN, MARINO Jimenez Ot 791.9 11/13/2015 RAOUL BOWDEN, MARINO Jimenez Ot V10.51 11/13/2015 RAOUL BOWDEN, MARINO Jimenez Ot V58.69 12/01/2015 RAOUL BOWDEN, MARINO Jimenez Ot 162.9 12/01/2015 RAOUL BOWDEN, MARINO Jimenez Ot 162.3 12/01/2015 BABATUNDE BOWDEN, KEEGAN Duarte Ot 239.4 12/01/2015 BABATUNDE BOWDEN, KEEGAN A Ot V72.83 12/01/2015 BABATUNDE BOWDEN, KEEGAN A Ot V74.8 12/01/2015 RAOUL BOWDEN, MARINO Jimenez Ot 162.3 12/01/2015 RAOUL BOWDEN, MARINO Jimenez Ot C34.10 12/01/2015 RAOUL BOWDEN, MARINO Jimenez Ot I10 12/01/2015 RAOUL BOWDEN, MARINO Jimenez Ot N40.0 12/01/2015 RAOUL BOWDEN, MARINO Jimenez Ot Z79.899 12/01/2015 RAOUL BOWDEN, MARINO Jimenez Ot Z85.51 12/01/2015 ELENA BOWDEN, BRENDAN Ot K59.00 CONSTIPATION, UNSPECIFIED 12/01/2015 ELENA BOWDEN, BRENDAN Pickens K64.0 FIRST DEGREE HEMORRHOIDS 12/02/2015 RAOUL BOWDEN, MARINO Jimenez Ot C34.10 12/02/2015 RAOUL BOWDEN, MARINO Jimenez Ot I10 12/02/2015 RAOUL BOWDEN, MARINO Jimenez Ot N40.0 12/02/2015 RAOUL BOWDEN, MARINO Jimenez Ot Z79.899 12/02/2015 RAOUL BOWDEN, MARINO Jimenez Ot Z85.51 12/08/2015 RAOUL BOWDEN, MARINO Jimenez Ot 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, UNSP B 12/08/2015 RAOUL BOWDEN, MARINO Jimenez Ot I10 ESSENTIAL (PRIMARY) HYPERTENSION 12/08/2015 RAOUL BOWDEN, MARINO Jimenez Ot N40.0 ENLARGED PROSTATE WITHOUT LOWER URINARY 12/08/2015 RAOUL BOWDEN, MARINO Jimenez Ot Z79.899 OTHER CARD PAINTER (CURRENT) DRUG THERAPY 12/08/2015 RAOUL BOWDEN, MARINO Jimenez Ot Z85.51 PERSONAL HISTORY OF MALIGNANT NEOPLASM O 12/09/2015 ELENA BOWDEN, BRENDAN Ot R19.4 12/09/2015 ELENA BOWDEN, BRENDAN Pickens Z01.818 12/28/2015 RAOUL BOWDEN, MARINO Jimenez Ot C34.10 12/28/2015 RAOUL BOWDEN, MARINO Jimenez Ot I10 12/28/2015 RAOUL BOWDEN, MARINO Jimenez Ot N40.0 12/28/2015 RAOUL BOWDEN, MARINO Jimenez Ot Z79.899 12/28/2015 RAOUL BOWDEN, MARINO Jimenez Ot Z85.51 01/21/2016 RAOUL BOWDEN, MARINO Jimenez Ot C34.10 01/21/2016 RAOUL BOWDEN, MARINO Jimenez Ot I10 01/21/2016 RAOUL BOWDEN, MARINO Jimenez Ot N40.0 01/21/2016 RAOUL BOWDEN, MARINO Jimenez Ot Z79.899 01/21/2016 RAOUL BOWDEN, MARINO Jimenez Ot Z85.51 03/03/2016 RAOUL BOWDEN, MARINO Jimenez Ot C34.10 03/03/2016 RAOUL BOWDEN, MARINO Jimenez Ot I10 03/03/2016 RAOUL BOWDEN, MARINO Jimenez Ot N40.0 03/03/2016 RAOUL BOWDEN, MARINO Jimenez Ot Z79.899 03/03/2016 RAOUL BOWDEN, MARINO Jimenez Ot Z85.51 03/23/2016 RAOUL BOWDEN, MARINO Jimenez Ot 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, UNSP B 03/23/2016 RAOUL BOWDEN, MARINO Jimenez Ot I10 ESSENTIAL (PRIMARY) HYPERTENSION 03/23/2016 RAOUL BOWDEN, MARINO Jimenez Ot N40.0 ENLARGED PROSTATE WITHOUT LOWER URINARY 03/23/2016 RAOUL BOWDEN, MARINO Jimenez Ot Z79.899 OTHER CARD PAINTER (CURRENT) DRUG THERAPY 03/23/2016 RAOUL OBWDEN, MARINO Jimenez Ot Z85.51 PERSONAL HISTORY OF MALIGNANT NEOPLASM O 06/22/2016 RAOUL BOWDEN, MARINO Jimenez Ot 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, UNSP B 06/22/2016 RAOUL BOWDEN, MARINO Jimenez Ot I10 ESSENTIAL (PRIMARY) HYPERTENSION 06/22/2016 RAOUL BOWDEN, MARINO Jimenez Ot N40.0 ENLARGED PROSTATE WITHOUT LOWER URINARY 06/22/2016 RAOUL BOWDEN, MARINO Jimenez Ot Z79.899 OTHER CARD PAINTER (CURRENT) DRUG THERAPY 06/22/2016 RAOUL BOWDEN, MARINO Jimenez Ot Z85.51 PERSONAL HISTORY OF MALIGNANT NEOPLASM O 06/26/2016 RAOUL BOWDEN, MARINO Jimenez Ot 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 06/26/2016 RAOUL BOWDEN, MARINO Jimenez Ot 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 06/26/2016 BABATUNDE BOWDEN, KEEGAN Duarte Ot 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 06/26/2016 KEEGAN FINE MD, Ot V72.83 EXAM PRE-OPERATIVE NEC 06/26/2016 KEEGAN FINE MD, Ot V74.8 SCREEN-BACTERIAL DIS NEC 06/26/2016 MARINO SILVEIRA MD Ot 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 06/26/2016 BRENDAN PARKER MD, Ot R19.4 CHANGE IN BOWEL HABIT 06/26/2016 BRENDAN PARKER MD Ot Z01.818 ENCOUNTER FOR OTHER PREPROCEDURAL EXAMIN 06/26/2016 MARINO SILVEIRA MD, Ot 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, UNSP B 06/26/2016 MARINO SILVEIRA MD Ot I10 ESSENTIAL (PRIMARY) HYPERTENSION 06/26/2016 MARINO SILVEIRA MD Ot N40.0 ENLARGED PROSTATE WITHOUT LOWER URINARY 06/26/2016 MARINO SILVEIRA MD Ot Z79.899 OTHER PENITENTIARY (CURRENT) DRUG THERAPY 06/26/2016 MARINO SILVEIRA MD Ot Z85.51 PERSONAL HISTORY OF MALIGNANT NEOPLASM O 06/26/2016 MARINO SILVEIRA MD Ot 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, UNSP B 06/26/2016 MARINO SILVEIRA MD Ot I10 ESSENTIAL (PRIMARY) HYPERTENSION 06/26/2016 MARINO SILVEIRA MD Ot N40.0 ENLARGED PROSTATE WITHOUT LOWER URINARY 06/26/2016 MARINO SILVEIRA MD Ot Z79.899 OTHER CARD PAINTER (CURRENT) DRUG THERAPY 06/26/2016 MARINO SILVEIRA MD Ot Z85.51 PERSONAL HISTORY OF MALIGNANT NEOPLASM O 06/27/2016 MARINO SILVEIRA MD Ot 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, UNSP B 06/27/2016 MARINO SILVEIRA MD Ot I10 ESSENTIAL (PRIMARY) HYPERTENSION 06/27/2016 MARINO SILVEIRA MD Ot N40.0 ENLARGED PROSTATE WITHOUT LOWER URINARY 06/27/2016 MARINO SILVEIRA MD Ot Z79.899 OTHER PENITENTIARY (CURRENT) DRUG THERAPY 06/27/2016 MARINO SILVEIRA MD Ot Z85.51 PERSONAL HISTORY OF MALIGNANT NEOPLASM O 07/07/2016 MARINO SILVEIRA MD Ot 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 07/07/2016 MARINO SILVEIRA MD Ot 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 07/07/2016 KEEGAN FINE MD Ot 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 07/07/2016 KEEGAN FINE MD Ot V72.83 EXAM PRE-OPERATIVE NEC 07/07/2016 KEEGAN FINE MD Ot V74.8 SCREEN-BACTERIAL DIS NEC 07/07/2016 MARINO SILVEIRA MD, Ot 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 07/07/2016 BRENDAN PARKER MD, Ot R19.4 CHANGE IN BOWEL HABIT 07/07/2016 BRENDAN PARKER MD, Ot Z01.818 ENCOUNTER FOR OTHER PREPROCEDURAL EXAMIN 07/07/2016 MARINO SILVEIRA MD, Ot C34.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 OF UPPER LOBE, RIGHT 07/07/2016 MARINO SILVEIRA MD, Ot I10 ESSENTIAL (PRIMARY) HYPERTENSION 07/07/2016 MARINO SILVEIRA MD, Ot N40.0 ENLARGED PROSTATE WITHOUT LOWER URINARY 07/07/2016 MARINO SILVEIRA MD, Ot Z79.899 OTHER CARD PAINTER (CURRENT) DRUG THERAPY 07/07/2016 MARINO SILVEIRA MD, Ot Z85.51 PERSONAL HISTORY OF MALIGNANT NEOPLASM O 07/10/2016 MARINO SILVEIRA MD, Ot C34.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 OF UPPER LOBE, RIGHT 07/10/2016 MARINO SILVEIRA MD Ot 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 07/10/2016 MARINO SILVEIRA MD, Ot C34.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 OF UPPER LOBE, RIGHT 07/10/2016 MARINO SILVEIRA MD, Ot 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 07/18/2016 MARINO SILVEIRA MD, Ot C34.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 OF UPPER LOBE, RIGHT 07/18/2016 MARINO SILVEIRA MD, Ot 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 07/28/2016 MARINO SILVEIRA MD, Ot C34.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 OF UPPER LOBE, RIGHT 07/28/2016 MARINO SILVEIRA MD, Ot 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 08/17/2016 MARINO SILVEIRA MD, Ot C34.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 OF UPPER LOBE, RIGHT 08/17/2016 MARINO SILVEIRA MD, Ot I10 ESSENTIAL (PRIMARY) HYPERTENSION 08/17/2016 MARINO SILVEIRA MD, Ot N40.0 ENLARGED PROSTATE WITHOUT LOWER URINARY 08/17/2016 MARINO SILVEIRA MD, Ot Z79.899 OTHER PENITENTIARY (CURRENT) DRUG THERAPY 08/17/2016 MARINO SILVEIRA MD Ot Z85.51 PERSONAL HISTORY OF MALIGNANT NEOPLASM O 08/25/2016 MARINO SILVEIRA MD, Ot C34.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 OF UPPER LOBE, RIGHT 08/25/2016 MARINO SILVEIRA MD Ot I10 ESSENTIAL (PRIMARY) HYPERTENSION 08/25/2016 MARINO SILVEIRA MD Ot N40.0 ENLARGED PROSTATE WITHOUT LOWER URINARY 08/25/2016 MARINO SILVEIRA MD Ot Z79.899 OTHER PENITENTIARY (CURRENT) DRUG THERAPY 08/25/2016 MARINO SILVEIRA MD Ot Z85.51 PERSONAL HISTORY OF MALIGNANT NEOPLASM O 09/06/2016 MARINO SILVEIRA MD, Ot C34.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 OF UPPER LOBE, RIGHT 09/06/2016 MARINO SILVEIRA MD Ot I10 ESSENTIAL (PRIMARY) HYPERTENSION 09/06/2016 MARINO SILVEIRA MD Ot N40.0 ENLARGED PROSTATE WITHOUT LOWER URINARY 09/06/2016 MARINO SILVEIRA MD Ot Z79.899 OTHER CARD PAINTER (CURRENT) DRUG THERAPY 09/06/2016 MARINO SILVEIRA MD Ot Z85.51 PERSONAL HISTORY OF MALIGNANT NEOPLASM O 09/24/2016 MARINO SILVEIRA MD, Ot C34.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 OF UPPER LOBE, RIGHT 09/24/2016 MARINO SILVEIRA MD Ot I10 ESSENTIAL (PRIMARY) HYPERTENSION 09/24/2016 MARINO SILVEIRA MD Ot N40.0 BENIGN PROSTATIC HYPERPLASIA WITHOUT LOW 09/24/2016 MARINO SILVEIRA MD Ot Z79.899 OTHER PENITENTIARY (CURRENT) DRUG THERAPY 09/24/2016 MARINO SILVEIRA MD Ot Z85.51 PERSONAL HISTORY OF MALIGNANT NEOPLASM O 09/25/2016 MARINO SILVEIRA MD, Ot C34.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 OF UPPER LOBE, RIGHT 09/25/2016 MARINO SILVEIRA MD Ot I10 ESSENTIAL (PRIMARY) HYPERTENSION 09/25/2016 MARINO SILVEIRA MD Ot N40.0 BENIGN PROSTATIC HYPERPLASIA WITHOUT LOW 09/25/2016 MARINO SILVEIRA MD Ot Z79.899 OTHER CARD PAINTER (CURRENT) DRUG THERAPY 09/25/2016 MARINO SILVEIRA MD Ot Z85.51 PERSONAL HISTORY OF MALIGNANT NEOPLASM O 01/22/2017 MARINO SILVEIRA MD Ot C34.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 OF UPPER LOBE, RIGHT 01/22/2017 MARINO SILVEIRA MD Ot I10 ESSENTIAL (PRIMARY) HYPERTENSION 01/22/2017 MARINO SILVEIRA MD Ot N40.0 BENIGN PROSTATIC HYPERPLASIA WITHOUT LOW 01/22/2017 MARINO SILVEIRA MD Ot Z79.899 OTHER PENITENTIARY (CURRENT) DRUG THERAPY 01/22/2017 MARINO SILVEIRA MD Ot Z85.51 PERSONAL HISTORY OF MALIGNANT NEOPLASM O 02/15/2017 MARINO SILVEIRA MD Ot C34.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 OF UPPER LOBE, RIGHT 02/15/2017 MARINO SILVEIRA MD Ot I10 ESSENTIAL (PRIMARY) HYPERTENSION 02/15/2017 MARINO SILVEIRA MD Ot N40.0 BENIGN PROSTATIC HYPERPLASIA WITHOUT LOW 02/15/2017 MARINO SILVEIRA MD Ot Z79.899 OTHER CARD PAINTER (CURRENT) DRUG THERAPY 02/15/2017 MARINO SILVEIRA MD Ot Z85.51 PERSONAL HISTORY OF MALIGNANT NEOPLASM O 04/18/2017 MARINO SILVEIRA MD Ot C34.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 OF UPPER LOBE, RIGHT 04/18/2017 MARINO SILVEIRA MD Ot I10 ESSENTIAL (PRIMARY) HYPERTENSION 04/18/2017 MARINO SILVEIRA MD Ot N40.0 BENIGN PROSTATIC HYPERPLASIA WITHOUT LOW 04/18/2017 MARINO SILVEIRA MD Ot Z79.899 OTHER PENITENTIARY (CURRENT) DRUG THERAPY 04/18/2017 MARINO SILVEIRA MD Ot Z85.51 PERSONAL HISTORY OF MALIGNANT NEOPLASM O 04/19/2017 MARINO SILVEIRA MD Ot C34.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 OF UPPER LOBE, RIGHT 04/19/2017 MARINO SILVEIRA MD Ot I10 ESSENTIAL (PRIMARY) HYPERTENSION 04/19/2017 MARINO SILVEIRA MD Ot N40.0 BENIGN PROSTATIC HYPERPLASIA WITHOUT LOW 04/19/2017 MARINO SILVEIRA MD Ot Z79.899 OTHER CARD PAINTER (CURRENT) DRUG THERAPY 04/19/2017 MARINO SILVEIRA MD Ot Z85.51 PERSONAL HISTORY OF MALIGNANT NEOPLASM O 07/04/2017 GERALD GAONA Ot C34.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 OF UPPER LOBE, RIGHT 07/04/2017 GERALD GAONA Ot I10 ESSENTIAL (PRIMARY) HYPERTENSION 07/04/2017 GERALD GAONA Ot N40.0 BENIGN PROSTATIC HYPERPLASIA WITHOUT LOW 07/04/2017 GERALD GAONA Ot Z79.899 OTHER PENITENTIARY (CURRENT) DRUG THERAPY 07/04/2017 GERALD GAONA Ot Z85.51 PERSONAL HISTORY OF MALIGNANT NEOPLASM O 07/04/2017 MARINO SILVEIRA MD Ot 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 07/04/2017 MARINO SILVEIRA MD Ot 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 07/04/2017 KEEGAN FINE MD Ot 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 07/04/2017 KEEGAN FINE MD A Ot V72.83 EXAM PRE-OPERATIVE NEC 07/04/2017 KEEGAN FINE MD Ot V74.8 SCREEN-BACTERIAL DIS NEC 07/04/2017 MARINO SILVEIRA MD Ot 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 07/04/2017 BRENDAN PARKER MD, Ot R19.4 CHANGE IN BOWEL HABIT 07/04/2017 ELENA BOWDEN, BRENDAN Ot Z01.818 ENCOUNTER FOR OTHER PREPROCEDURAL EXAMIN 07/04/2017 RAOUL BOWDEN, MARINO Jimenez Ot C34.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 OF UPPER LOBE, RIGHT 07/04/2017 MARINO SILVEIRA MD Ot 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 07/04/2017 CANDELARIA, BOBAN N Ot C34.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 OF UPPER LOBE, RIGHT 07/04/2017 CANDELARIA, BOBAN N Ot I10 ESSENTIAL (PRIMARY) HYPERTENSION 07/04/2017 CANDELARIA, BOBAN N Ot N40.0 BENIGN PROSTATIC HYPERPLASIA WITHOUT LOW 07/04/2017 CANDELARIA, BOBAN N Ot Z79.899 OTHER PENITENTIARY (CURRENT) DRUG THERAPY 07/04/2017 CANDELARIA, BOBAN N Ot Z85.51 PERSONAL HISTORY OF MALIGNANT NEOPLASM O 07/10/2017 CANDELARIA, BOBAN N Ot C34.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 OF UPPER LOBE, RIGHT 07/10/2017 CANDELARIA, BOBAN N Ot I10 ESSENTIAL (PRIMARY) HYPERTENSION 07/10/2017 CANDELARIA, BOBAN N Ot N40.0 BENIGN PROSTATIC HYPERPLASIA WITHOUT LOW 07/10/2017 CANDELARIA, BOBAN N Ot Z79.899 OTHER CARD PAINTER (CURRENT) DRUG THERAPY 07/10/2017 CANDELARIA, BOBAN N Ot Z85.51 PERSONAL HISTORY OF MALIGNANT NEOPLASM O 07/11/2017 CANDELARIA, BOBAN N Ot C34.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 OF UPPER LOBE, RIGHT 07/11/2017 CANDELARIA, BOBAN N Ot I10 ESSENTIAL (PRIMARY) HYPERTENSION 07/11/2017 CANDELARIA, BOBAN N Ot N40.0 BENIGN PROSTATIC HYPERPLASIA WITHOUT LOW 07/11/2017 CANDELARIA, BOBAN N Ot Z79.899 OTHER PENITENTIARY (CURRENT) DRUG THERAPY 07/11/2017 CANDELARIA, BOBAN N Ot Z85.51 PERSONAL HISTORY OF MALIGNANT NEOPLASM O 07/11/2017 MARINO SILVEIRA MD Ot 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 07/11/2017 MARINO SILVEIRA MD Ot 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 07/11/2017 KEEGAN FINE MD Ot 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 07/11/2017 BABATUNDE BOWDEN, KEEGAN Duarte Ot V72.83 EXAM PRE-OPERATIVE NEC 07/11/2017 KEEGAN FINE MD, Ot V74.8 SCREEN-BACTERIAL DIS NEC 07/11/2017 MARINO SILVEIRA MD Ot 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 07/11/2017 BRENDAN PARKER MD, Ot R19.4 CHANGE IN BOWEL HABIT 07/11/2017 BRENDAN PARKER MD Ot Z01.818 ENCOUNTER FOR OTHER PREPROCEDURAL EXAMIN 07/11/2017 MARINO SILVEIRA MD Ot C34.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 OF UPPER LOBE, RIGHT 07/11/2017 MARINO SILVEIRA MD Ot 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 07/11/2017 GERALD GAONA Ot C34.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 OF UPPER LOBE, RIGHT 07/11/2017 GERALD GAONA Ot I10 ESSENTIAL (PRIMARY) HYPERTENSION 07/11/2017 GERALD GAONA Ot N40.0 BENIGN PROSTATIC HYPERPLASIA WITHOUT LOW 07/11/2017 GERALD GAONA Ot Z79.899 OTHER PENITENTIARY (CURRENT) DRUG THERAPY 07/11/2017 GERALD GAONA Ot Z85.51 PERSONAL HISTORY OF MALIGNANT NEOPLASM O 08/03/2017 MARINO SILVEIRA MD Ot C34.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 OF UPPER LOBE, RIGHT 08/03/2017 MARINO SILVEIRA MD Ot K44.9 DIAPHRAGMATIC HERNIA WITHOUT OBSTRUCTION 08/03/2017 MARINO SILVEIRA MD Ot Z98.890 OTHER SPECIFIED POSTPROCEDURAL STATES 08/17/2017 GERALD GAONA Ot C34.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 OF UPPER LOBE, RIGHT 08/17/2017 GERALD GAONA N Ot I10 ESSENTIAL (PRIMARY) HYPERTENSION 08/17/2017 GERALD GAONA Ot N40.0 BENIGN PROSTATIC HYPERPLASIA WITHOUT LOW 08/17/2017 GERALD GAONA Ot Z79.899 OTHER CARD PAINTER (CURRENT) DRUG THERAPY 08/17/2017 GERALD GAONA Ot Z85.51 PERSONAL HISTORY OF MALIGNANT NEOPLASM O 08/25/2017 GERALD GAONA Ot C34.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 OF UPPER LOBE, RIGHT 08/25/2017 GERALD GAONA N Ot I10 ESSENTIAL (PRIMARY) HYPERTENSION 08/25/2017 GERALD GAONA N Ot N40.0 BENIGN PROSTATIC HYPERPLASIA WITHOUT LOW 08/25/2017 GERALD GAONA N Ot Z79.899 OTHER CARD PAINTER (CURRENT) DRUG THERAPY 08/25/2017 GERALD GAONA N Ot Z85.51 PERSONAL HISTORY OF MALIGNANT NEOPLASM O 08/31/2017 GERALD GAONA N Ot C34.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 OF UPPER LOBE, RIGHT 08/31/2017 CANDELARIA BOBMAMIE N Ot I10 ESSENTIAL (PRIMARY) HYPERTENSION 08/31/2017 GERALD GAONA N Ot N40.0 BENIGN PROSTATIC HYPERPLASIA WITHOUT LOW 08/31/2017 CANDELARIAGERALD SALDIVAR N Ot Z79.899 OTHER PENITENTIARY (CURRENT) DRUG THERAPY 08/31/2017 GERALD GAONA N Ot Z85.51 PERSONAL HISTORY OF MALIGNANT NEOPLASM O 08/31/2017 GERALD GAONA N Ot C34.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 OF UPPER LOBE, RIGHT 08/31/2017 CANDELARIA BOBMAMIE N Ot I10 ESSENTIAL (PRIMARY) HYPERTENSION 08/31/2017 GERALD GAONA N Ot N40.0 BENIGN PROSTATIC HYPERPLASIA WITHOUT LOW 08/31/2017 GERALD GAONA N Ot Z79.899 OTHER CARD PAINTER (CURRENT) DRUG THERAPY 08/31/2017 GERALD GAONA N Ot Z85.51 PERSONAL HISTORY OF MALIGNANT NEOPLASM O 01/22/2018 RAOUL BOWDEN, MARINO Jimenez Ot 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 01/22/2018 MARINO SILVEIRA MD Ot 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 01/22/2018 KEEGAN FINE MD Ot 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 01/22/2018 KEEGAN FINE MD Ot V72.83 EXAM PRE-OPERATIVE NEC 01/22/2018 KEEGAN FINE MD Ot V74.8 SCREEN-BACTERIAL DIS NEC 01/22/2018 MARINO SILVEIRA MD Ot 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 01/22/2018 ELENA BOWDEN, BRENDAN Ot R19.4 CHANGE IN BOWEL HABIT 01/22/2018 ELENA BOWDEN, BRENDAN Ot Z01.818 ENCOUNTER FOR OTHER PREPROCEDURAL EXAMIN 01/22/2018 RAOUL BOWDEN, MARINO Jimenez Ot C34.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 OF UPPER LOBE, RIGHT 01/22/2018 MARINO SILVEIRA MD Ot 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 01/22/2018 MARINO SILVEIRA MD Ot C34.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 OF UPPER LOBE, RIGHT 01/22/2018 MARINO SILVEIRA MD Ot K44.9 DIAPHRAGMATIC HERNIA WITHOUT OBSTRUCTION 01/22/2018 MARINO SILVEIRA MD Ot Z98.890 OTHER SPECIFIED POSTPROCEDURAL STATES 01/22/2018 CANDELARIA BOBAN N Ot I10 ESSENTIAL (PRIMARY) HYPERTENSION 01/22/2018 CANDELARIAGERALD N Ot K44.9 DIAPHRAGMATIC HERNIA WITHOUT OBSTRUCTION 01/22/2018 CANDELARIA, GERALD N Ot N40.0 BENIGN PROSTATIC HYPERPLASIA WITHOUT LOW 01/22/2018 CANDELARIA, BOBAN N Ot Z08 ENCNTR FOR FOLLOW-UP EXAM AFTER TRTMT FO 01/22/2018 CANDELARIAJIAAN N Ot Z79.899 OTHER PENITENTIARY (CURRENT) DRUG THERAPY 01/22/2018 CANDELARIA, BOBAN N Ot Z85.118 PERSONAL HISTORY OF MALIGNANT NEOPLASM O 01/22/2018 CANDELARIA BOBAN N Ot Z85.51 PERSONAL HISTORY OF MALIGNANT NEOPLASM O 01/22/2018 CANDELARIA, BOBAN N Ot Z92.21 PERSONAL HISTORY OF ANTINEOPLASTIC CHEMO 01/22/2018 CANDELARIA, BOBAN N Ot Z98.890 OTHER SPECIFIED POSTPROCEDURAL STATES 01/29/2018 CANDELARIA BOBAN N Ot I10 ESSENTIAL (PRIMARY) HYPERTENSION 01/29/2018 CANDELARIAJIAAN N Ot K44.9 DIAPHRAGMATIC HERNIA WITHOUT OBSTRUCTION 01/29/2018 CANDELARIA BOBAN N Ot N40.0 BENIGN PROSTATIC HYPERPLASIA WITHOUT LOW 01/29/2018 CANDELARIAJIAAN N Ot Z08 ENCNTR FOR FOLLOW-UP EXAM AFTER TRTMT FO 01/29/2018 CANDELARIAJIAAN N Ot Z79.899 OTHER PENITENTIARY (CURRENT) DRUG THERAPY 01/29/2018 CANDELARIA, BOBAN N Ot Z85.118 PERSONAL HISTORY OF MALIGNANT NEOPLASM O 01/29/2018 CANDELARIA, BOBAN N Ot Z85.51 PERSONAL HISTORY OF MALIGNANT NEOPLASM O 01/29/2018 CANDELARIA, BOBAN N Ot Z92.21 PERSONAL HISTORY OF ANTINEOPLASTIC CHEMO 01/29/2018 CANDELARIA, BOBAN N Ot Z98.890 OTHER SPECIFIED POSTPROCEDURAL STATES 02/06/2018 CANDELARIA, BOBAN N Ot I10 ESSENTIAL (PRIMARY) HYPERTENSION 02/06/2018 CANDELARIA, JIAAN N Ot K44.9 DIAPHRAGMATIC HERNIA WITHOUT OBSTRUCTION 02/06/2018 CANDELARIA, BOBAN N Ot N40.0 BENIGN PROSTATIC HYPERPLASIA WITHOUT LOW 02/06/2018 CANDELARIA, BOBAN N Ot Z08 ENCNTR FOR FOLLOW-UP EXAM AFTER TRTMT FO 02/06/2018 CANDELARIA JIAMAMIE N Ot Z79.899 OTHER PENITENTIARY (CURRENT) DRUG THERAPY 02/06/2018 CANDELARIA BOBAN N Ot Z85.118 PERSONAL HISTORY OF MALIGNANT NEOPLASM O 02/06/2018 CANDELARIA, BOBAN N Ot Z85.51 PERSONAL HISTORY OF MALIGNANT NEOPLASM O 02/06/2018 CANDELARIA, BOBAN N Ot Z92.21 PERSONAL HISTORY OF ANTINEOPLASTIC CHEMO 02/06/2018 CANDELARIA BOBAN N Ot Z98.890 OTHER SPECIFIED POSTPROCEDURAL STATES 02/06/2018 CANDELARIA, BOBAN N Ot I10 ESSENTIAL (PRIMARY) HYPERTENSION 02/06/2018 CANDELARIA, GERALD N Ot K44.9 DIAPHRAGMATIC HERNIA WITHOUT OBSTRUCTION 02/06/2018 CANDELARIA, GERALD N Ot N40.0 BENIGN PROSTATIC HYPERPLASIA WITHOUT LOW 02/06/2018 CANDELARIAJIAAN N Ot Z08 ENCNTR FOR FOLLOW-UP EXAM AFTER TRTMT FO 02/06/2018 CANDELARIAJIAMAMIE N Ot Z79.899 OTHER CARD PAINTER (CURRENT) DRUG THERAPY 02/06/2018 CANDELARIA BOBAN N Ot Z85.118 PERSONAL HISTORY OF MALIGNANT NEOPLASM O 02/06/2018 CANDELARIA, BOBAN N Ot Z85.51 PERSONAL HISTORY OF MALIGNANT NEOPLASM O 02/06/2018 CANDELARIAJIAAN N Ot Z92.21 PERSONAL HISTORY OF ANTINEOPLASTIC CHEMO 02/06/2018 CANDELARIA, BOBAN N Ot Z98.890 OTHER SPECIFIED POSTPROCEDURAL STATES 04/22/2018 CANDELARIA, BOBAN N Ot I10 ESSENTIAL (PRIMARY) HYPERTENSION 04/22/2018 CANDELARIA, BOBAN N Ot K44.9 DIAPHRAGMATIC HERNIA WITHOUT OBSTRUCTION 04/22/2018 CANDELARIA, BOBAN N Ot N40.0 BENIGN PROSTATIC HYPERPLASIA WITHOUT LOW 04/22/2018 CANDELARIA, BOBAN N Ot Z08 ENCNTR FOR FOLLOW-UP EXAM AFTER TRTMT FO 04/22/2018 CANDELARIAJIA SALDIVARAN N Ot Z79.899 OTHER PENITENTIARY (CURRENT) DRUG THERAPY 04/22/2018 CANDELARIAGERALD N Ot Z85.118 PERSONAL HISTORY OF MALIGNANT NEOPLASM O 04/22/2018 CANDELARIA, BOBAN N Ot Z85.51 PERSONAL HISTORY OF MALIGNANT NEOPLASM O 04/22/2018 CANDELARIA, BOBAN N Ot Z92.21 PERSONAL HISTORY OF ANTINEOPLASTIC CHEMO 04/22/2018 CANDELARIA BOBAN N Ot Z98.890 OTHER SPECIFIED POSTPROCEDURAL STATES 05/03/2018 CANDELARIA BOBAN N Ot I10 ESSENTIAL (PRIMARY) HYPERTENSION 05/03/2018 CANDELARIA, BOBAN N Ot K44.9 DIAPHRAGMATIC HERNIA WITHOUT OBSTRUCTION 05/03/2018 CANDELARIA, BOBAN N Ot N40.0 BENIGN PROSTATIC HYPERPLASIA WITHOUT LOW 05/03/2018 CANDELARIA, BOBAN N Ot Z08 ENCNTR FOR FOLLOW-UP EXAM AFTER TRTMT FO 05/03/2018 CANDELARIA BOBAN N Ot Z79.899 OTHER PENITENTIARY (CURRENT) DRUG THERAPY 05/03/2018 CANDELARIA BOBAN N Ot Z85.118 PERSONAL HISTORY OF MALIGNANT NEOPLASM O 05/03/2018 CANDELARIA, BOBAN N Ot Z85.51 PERSONAL HISTORY OF MALIGNANT NEOPLASM O 05/03/2018 CANDELARIA, BOBAN N Ot Z92.21 PERSONAL HISTORY OF ANTINEOPLASTIC CHEMO 05/03/2018 CANDELARIA, BOBAN N Ot Z98.890 OTHER SPECIFIED POSTPROCEDURAL STATES 05/04/2018 CANDELARIA BOBAN N Ot I10 ESSENTIAL (PRIMARY) HYPERTENSION 05/04/2018 CANDELARIAGERALD N Ot K44.9 DIAPHRAGMATIC HERNIA WITHOUT OBSTRUCTION 05/04/2018 CANDELARIA BOBMAMIE N Ot N40.0 BENIGN PROSTATIC HYPERPLASIA WITHOUT LOW 05/04/2018 CANDELARIA, BOBAN N Ot Z08 ENCNTR FOR FOLLOW-UP EXAM AFTER TRTMT FO 05/04/2018 CANDELARIAJIAAN N Ot Z79.899 OTHER PENITENTIARY (CURRENT) DRUG THERAPY 05/04/2018 CANDELARIA, BOBAN N Ot Z85.118 PERSONAL HISTORY OF MALIGNANT NEOPLASM O 05/04/2018 CANDELARIA, BOBAN N Ot Z85.51 PERSONAL HISTORY OF MALIGNANT NEOPLASM O 05/04/2018 CANDELARIA, BOBAN N Ot Z92.21 PERSONAL HISTORY OF ANTINEOPLASTIC CHEMO 05/04/2018 CANDELARIA, BOBAN N Ot Z98.890 OTHER SPECIFIED POSTPROCEDURAL STATES 07/15/2018 MARINO SILVEIRA MD Ot 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 07/15/2018 MARINO SILVEIRA MD Ot 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 07/15/2018 KEEGAN FINE MD Ot 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 07/15/2018 KEEGAN FINE MD Ot V72.83 EXAM PRE-OPERATIVE NEC 07/15/2018 KEEGAN FINE MD Ot V74.8 SCREEN-BACTERIAL DIS NEC 07/15/2018 MARINO SILVEIRA MD Ot 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 07/15/2018 BRENDAN PARKER MD Ot R19.4 CHANGE IN BOWEL HABIT 07/15/2018 BRENDAN PARKER MD Ot Z01.818 ENCOUNTER FOR OTHER PREPROCEDURAL EXAMIN 07/15/2018 MARINO SILVEIRA MD Ot C34.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 OF UPPER LOBE, RIGHT 07/15/2018 MARINO SILVEIRA MD Ot 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 07/15/2018 MARINO SILVEIRA MD Ot C34.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 OF UPPER LOBE, RIGHT 07/15/2018 MARINO SILVEIRA MD Ot K44.9 DIAPHRAGMATIC HERNIA WITHOUT OBSTRUCTION 07/15/2018 MARINO SILVEIRA MD Ot Z98.890 OTHER SPECIFIED POSTPROCEDURAL STATES 07/15/2018 SASHA MATHUR MD Ot I10 ESSENTIAL (PRIMARY) HYPERTENSION 07/15/2018 SASHA MATHUR MD, Ot K44.9 DIAPHRAGMATIC HERNIA WITHOUT OBSTRUCTION 07/15/2018 SASHA MATHUR MD, Ot N40.0 BENIGN PROSTATIC HYPERPLASIA WITHOUT LOW 07/15/2018 SASHA MATHUR MD Ot Z08 ENCNTR FOR FOLLOW-UP EXAM AFTER TRTMT FO 07/15/2018 SASHA MATHUR MD Ot Z79.899 OTHER CARD PAINTER (CURRENT) DRUG THERAPY 07/15/2018 SASHA MATHUR MD Ot Z85.118 PERSONAL HISTORY OF MALIGNANT NEOPLASM O 07/15/2018 SASHA MATHUR MD Ot Z85.51 PERSONAL HISTORY OF MALIGNANT NEOPLASM O 07/15/2018 SASHA MATHUR MD Ot Z92.21 PERSONAL HISTORY OF ANTINEOPLASTIC CHEMO 07/15/2018 SASHA MATHUR MD Ot Z98.890 OTHER SPECIFIED POSTPROCEDURAL STATES 07/16/2018 YUE BOWMANP Ot C34.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 OF UPPER LOBE, RIGHT 07/26/2018 SASHA MATHUR MD, Ot I10 ESSENTIAL (PRIMARY) HYPERTENSION 07/26/2018 SASHA MATHUR MD Ot K44.9 DIAPHRAGMATIC HERNIA WITHOUT OBSTRUCTION 07/26/2018 SASHA MATHUR MD, Ot N40.0 BENIGN PROSTATIC HYPERPLASIA WITHOUT LOW 07/26/2018 SASHA MATHUR MD Ot Z08 ENCNTR FOR FOLLOW-UP EXAM AFTER TRTMT FO 07/26/2018 SASHA MATHUR MD Ot Z79.899 OTHER PENITENTIARY (CURRENT) DRUG THERAPY 07/26/2018 SASHA MATHUR MD, Ot Z85.118 PERSONAL HISTORY OF MALIGNANT NEOPLASM O 07/26/2018 SASHA MATHUR MD, Ot Z85.51 PERSONAL HISTORY OF MALIGNANT NEOPLASM O 07/26/2018 SASHA MATHUR MD, Ot Z92.21 PERSONAL HISTORY OF ANTINEOPLASTIC CHEMO 07/26/2018 SASHA MATHUR MD, Ot Z98.890 OTHER SPECIFIED POSTPROCEDURAL STATES 07/26/2018 YUE BOWMAN DRAGLINE OPERATOR Ot C34.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 OF UPPER LOBE, RIGHT 08/08/2018 YUE BOWMAN DRAGLINE OPERATOR Ot C34.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 OF UPPER LOBE, RIGHT 12/31/2018 Aguirre, Daphney-Yadira W 401.9 UNSPECIFIED ESSENTIAL HYPERTENSION 12/31/2018 Aguirre, Daphney-Yadira W 564.00 CONSTIPATION, UNSPECIFIED 12/31/2018 Aguirre, Daphney-Yadira W I10 ESSENTIAL (PRIMARY) HYPERTENSION 12/31/2018 Aguirre, Daphney-Yadira W K59.00 CONSTIPATION, UNSPECIFIED 12/31/2018 Aguirre, Dahpney-Yadira W 401.9 UNSPECIFIED ESSENTIAL HYPERTENSION 12/31/2018 Gauirre, Daphney-Yadira W 564.00 CONSTIPATION, UNSPECIFIED 12/31/2018 Aguirre, Daphney-Yadira W I10 ESSENTIAL (PRIMARY) HYPERTENSION 12/31/2018 Aguirre, Daphney-Yadira W K59.00 CONSTIPATION, UNSPECIFIED 01/14/2019 RAOUL BOWDEN, MARINO Jimenez Ot 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 01/14/2019 RAOUL BOWDEN, MARINO Jimenez Ot 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 01/14/2019 BABATUNDE BOWDEN, KEEGAN Duarte Ot 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 01/14/2019 BABATUNDE BOWDEN, KEEGAN Duarte Ot V72.83 EXAM PRE-OPERATIVE NEC 01/14/2019 BABATUNDE BOWDEN, KEEGAN A Ot V74.8 SCREEN-BACTERIAL DIS NEC 01/14/2019 MARINO SILVEIRA MD Ot 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 01/14/2019 BRENDAN PARKER MD Ot R19.4 CHANGE IN BOWEL HABIT 01/14/2019 BRENDAN PARKER MD Ot Z01.818 ENCOUNTER FOR OTHER PREPROCEDURAL EXAMIN 01/14/2019 MARINO SILVEIRA MD Ot C34.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 OF UPPER LOBE, RIGHT 01/14/2019 MARINO SILVEIRA MD Ot 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 01/14/2019 MARINO SILVEIRA MD Ot C34.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 OF UPPER LOBE, RIGHT 01/14/2019 MARINO SILVEIRA MD Ot K44.9 DIAPHRAGMATIC HERNIA WITHOUT OBSTRUCTION 01/14/2019 MARINO SILVEIRA MD Ot Z98.890 OTHER SPECIFIED POSTPROCEDURAL STATES 01/14/2019 YUE BOWMAN DRAGLINE OPERATOR Ot C34.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 OF UPPER LOBE, RIGHT 01/14/2019 SASHA MATHUR MD Ot I10 ESSENTIAL (PRIMARY) HYPERTENSION 01/14/2019 SASHA MATHUR MD, Ot K44.9 DIAPHRAGMATIC HERNIA WITHOUT OBSTRUCTION 01/14/2019 SASHA MATHUR MD Ot N40.0 BENIGN PROSTATIC HYPERPLASIA WITHOUT LOW 01/14/2019 SASHA MATHUR MD Ot Z08 ENCNTR FOR FOLLOW-UP EXAM AFTER TRTMT FO 01/14/2019 SASHA MATHUR MD Ot Z79.899 OTHER CARD PAINTER (CURRENT) DRUG THERAPY 01/14/2019 SASHA MATHUR MD Ot Z85.118 PERSONAL HISTORY OF MALIGNANT NEOPLASM O 01/14/2019 SASHA MATHUR MD Ot Z85.51 PERSONAL HISTORY OF MALIGNANT NEOPLASM O 01/14/2019 SASHA MATHUR MD Ot Z92.21 PERSONAL HISTORY OF ANTINEOPLASTIC CHEMO 01/14/2019 SASHA MATHUR MD Ot Z98.890 OTHER SPECIFIED POSTPROCEDURAL STATES Procedures There is no data. Results Test Result Range Bacterial urine culture - 06/26/16 14:08 Bacterial urine culture [id number] NRG COLONY COUNT <10,000 NRG Bacterial susceptibility panel - 06/26/16 14:08 Gentamicin susceptibility test by minimum inhibitory concentration S NRG Vancomycin susceptibility test by minimum inhibitory concentration 1 NRG Levofloxacin susceptibility test by minimum inhibitory concentration 1 NRG Tetracycline susceptibility test by minimum inhibitory concentration <= NRG Ampicillin susceptibility test by minimum inhibitory concentration < = NRG Nitrofurantoin susceptibility test by minimum inhibitory concentration <= NRG Linezolid susceptibility test by minimum inhibitory concentration 2 NRG Lipid Panel - 03/28/17 08:00 C/HDL 3.5 3.7-6.7 Cholesterol 208 mg/dL 100-240 HDL 59 mg/dL 30-85 LDL-Calculated 127 mg/dL 0-100 Trig 111 mg/dL 35-160 VLDL 22 mg/dL 0-42 Thyroid Stimulating Hormone - 12/31/18 08:45 TSH 4.86 mIU/mL 0.32-5.00 Encounters ACCT No. Visit Date/Time Discharge Status Pt. Type Provider Facility Loc./Unit Complaint [id number] 01/10/2019 05:39:00 01/10/2019 15:13:00 DIS Outpatient KEEGAN FINE MD [facility] PREOP BLADDER NEOPLASM [id number] 08/26/2018 00:43:00 08/26/2018 23:59:59 CLS Preadmit SASHA MATHUR MD [facility] ONC OV AND [place] [id number] 07/24/2018 12:55:00 07/26/2018 00:01:00 DIS Outpatient SASHA MATHUR MD [facility] ONC OV AND [place] [id number] 07/24/2018 15:31:00 07/24/2018 23:59:59 CLS Preadmit SASHA MATHUR MD [facility] RAD LUNG CANCER,UPPER LOBE [id number] 07/15/2018 08:35:00 07/15/2018 23:59:59 CLS Outpatient YUE BOWMAN [facility] RAD 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, UPPER LOBE [id number] 01/22/2018 13:11:00 04/22/2018 00:01:00 DIS Outpatient GERALD GAONA [facility] ONC [place] AND [place] [id number] 07/19/2017 12:39:00 08/25/2017 00:01:00 DIS Outpatient GERALD GAONA [facility] ONC OV AND [place] [id number] 07/12/2017 09:16:00 07/12/2017 23:59:59 CLS Outpatient MARINO SILVEIRA MD [facility] RAD LUNG CANCER,UPPER LOBE [id number] 01/18/2017 13:44:00 04/18/2017 00:01:00 DIS Outpatient MARINO SILVEIRA MD [facility] ONC OV AND [place] [id number] 07/13/2016 13:52:00 09/24/2016 00:01:00 DIS Outpatient MARINO SILVEIRA MD [facility] ONC OV AND [place] [id number] 07/07/2016 10:06:00 07/07/2016 23:59:59 CLS Outpatient MARINO SILVEIRA MD [facility] RAD LUNG CANCER UPPER LOBE, BLADDER CANCER [id number] 12/30/2015 12:52:00 03/23/2016 00:01:00 DIS Outpatient MARINO SILVEIRA MD [facility] ONC OV AND [place] [id number] 10/07/2015 13:21:00 12/08/2015 00:01:00 DIS Outpatient MARINO SILVEIRA MD [facility] ONC OV AND [place] [id number] 12/01/2015 08:49:00 12/01/2015 12:15:00 DIS Outpatient BRENDAN PARKER MD [facility] SDC SCREENING [id number] 11/29/2015 06:54:00 11/29/2015 23:59:59 CLS Outpatient BRENDAN PARKER MD [facility] PREOP SCREENING [id number] 08/20/2015 12:59:00 08/25/2015 00:01:00 DIS Outpatient MARINO SILVEIRA MD [facility] ONC OV AND [place] [id number] 08/23/2015 08:54:00 08/23/2015 23:59:59 CLS Outpatient MARINO SILVEIRA MD [facility] RAD LUNG CA [id number] 05/18/2015 13:10:00 08/16/2015 00:01:00 DIS Outpatient MARINO SILVEIRA MD [facility] ONC OV AND [place] [id number] 02/16/2015 09:56:00 02/16/2015 23:59:59 CLS Outpatient MARINO SILVEIRA MD [facility] RAD [id number] 01/12/2015 00:10:00 01/12/2015 23:59:59 CLS Outpatient MARINO SILVEIRA MD [facility] ONC OV AND [place] [id number] 12/14/2014 13:09:00 01/11/2015 00:01:00 DIS Outpatient MARINO SILVEIRA MD [facility] ONC OV AND [place] [id number] 12/08/2014 06:10:00 12/08/2014 10:32:00 DIS Outpatient KEEGAN FINE MD [facility] SDC BLADDER TUMOR [id number] 12/03/2014 08:06:00 12/03/2014 23:59:59 CLS Outpatient KEEGAN FINE MD [facility] PREOP BLADDER TUMOR [id number] 09/11/2014 12:59:00 09/15/2014 00:01:00 DIS Outpatient [id number] 08/18/2014 08:40:00 08/18/2014 23:59:59 CLS Outpatient MARINO SILVEIRA MD [facility] RAD LUNG CA [id number] 05/11/2014 13:15:00 06/04/2014 00:01:00 DIS Outpatient [id number] 02/04/2014 13:38:00 03/02/2014 00:01:00 DIS Outpatient [id number] 12/01/2013 09:37:00 12/01/2013 23:59:59 CLS Outpatient MARINO SILVIERA MD [facility] RAD CA OF LUNG [id number] 11/04/2013 13:33:00 12/01/2013 00:01:00 DIS Outpatient [id number] 08/05/2013 13:33:00 08/25/2013 00:01:00 DIS Outpatient [id number] 07/10/2013 09:02:00 07/10/2013 23:59:59 CLS Outpatient [id number] 04/23/2013 13:25:00 05/08/2013 00:01:00 DIS Outpatient [id number] 01/14/2019 06:06:00 ACT Outpatient KEEGAN FINE MD [facility] SDC BLADDER NEOPLASM [id number] 01/20/2015 15:04:00 Document Registration [id number] 01/20/2015 15:04:00 Document Registration [id number] 01/20/2015 15:04:00 Document Registration [id number] 01/10/2013 08:59:00 Document Registration [id number] 01/07/2013 13:09:00 Document Registration [id number] 10/11/2012 13:26:00 Document Registration [id number] 08/19/2012 09:16:00 Document Registration [id number] 06/18/2012 13:26:00 Document Registration [id number] 06/13/2012 07:44:00 Document Registration [id number] 05/28/2012 08:16:00 Document Registration [id number] 04/16/2012 13:45:00 Document Registration [id number] 01/09/2012 08:48:00 Document Registration [id number] 12/15/2011 05:36:00 Document Registration [id number] 12/14/2011 09:57:00 Document Registration [id number] 12/06/2011 08:30:00 Document Registration [id number] 11/23/2011 15:12:00 Document Registration [id number] 11/22/2011 09:42:00 Document Registration [id number] 12/28/2009 12:05:00 Document Registration [id number] 10/16/2007 10:43:00 Document Registration [id number] 08/23/2015 08:54:32 ACT Document Registration [id number] 10/03/2017 13:00:00 10/03/2017 23:59:59 CLS Outpatient [facility] [id number] 12/31/2018 10:11:00 12/31/2018 23:59:00 DIS Outpatient Tomas Aguirre [id number] 03/28/2017 11:56:00 03/28/2017 23:59:00 DIS Outpatient Tomsa Aguirre
[2019-01-14 06:25] VITALS: BP 170/83
[2019-01-14] MEDS ORDERED: fentaNYL INJECTION 100 MCG/2 ML AMP ONE (06:47)
[2019-01-14] MEDS ORDERED: proPOfol 200 MG/20 ML (DIPRIVAN) VIAL IV ONE (06:47)
[2019-01-14] MEDS ORDERED: MIDAZOLAM 2 MG/2 ML (VERSED) VIAL ONE (06:47)
[2019-01-14] MEDS ORDERED: LIDOCAINE PF 2% 5 ML (XYLOCAINE) VIAL ONE (06:47)
[2019-01-14] MEDS ORDERED: ONDANSETRON 4 MG/2 ML (SDV) Z0FRAN ONE (06:47)
[2019-01-14] MEDS ORDERED: SEVOFLURANE (ULTANE) 15 ML INHAL SOLN ONE ×3 (06:52→07:48)
[2019-01-14] MEDS ORDERED: DEXAMETHASONE 10 MG/ML (DECADRON) 1 ML VIAL ONE (06:52)
--- NOTE | 2019-01-14 07:02 | Progress Note-Pre Operative ---
Pre-Operative Progress Note H&P Reviewed The H&P was reviewed, patient examined and no changes noted. Date Seen by Provider: Jan 14, 2019 Time Seen by Provider: 07:02 Date H&P Reviewed: Jan 14, 2019 Time H&P Reviewed: 07:02 Pre-Operative Diagnosis: MEDIUM BLADDER TUMOR KEEGAN FINE MD Jan 14, 2019 07:02
--- NOTE | 2019-01-14 07:03 | Progress Note-Post Operative ---
Post-Operative Progess Note Surgeon (s)/Foundation Relations Manager (s) Surgeon KEEGAN FINE MD Foundation Relations Manager: NONE Pre-Operative Diagnosis MEDIUM BLADDER TUMOR Post-Operative Diagnosis SAME Procedure & Operative Findings Date of Procedure 01/14/19 Procedure Performed/Findings TURBT Anesthesia Type GENERAL Estimated Blood Loss Estimated blood loss (mL): NEGLIGIBLE Specimens/Packing Specimens Removed BLADDER TUMOR CHIPS AND BASE Packing: NONE KEEGAN FINE MD Jan 14, 2019 07:03
[2019-01-14] MEDS ORDERED: LACTATED RINGERS 1,000 ML IV PRN (07:04)
[2019-01-14] MEDS ORDERED: LEVOFLOXACIN 250 MG/50 ML IVPB 50 ML ONE (07:04)
--- NOTE | 2019-01-14 07:05 | Discharge Inst-Urology ---
Discharge Inst-Urology Discharge Medications New, Converted, or Re-newed RX: RX on Chart Patient Instructions/Follow Up Plan Please make appointment to been seen in office in 2 weeks. In one week, if no bleeding, may resume ASA Increase oral fluids for 48 hours and then as needed. Diet and Activity as tolerated. If questions or concerns contact your physician Or seek help at emergency department. KEEGAN FINE MD Jan 14, 2019 07:05
[2019-01-14] MEDS ORDERED: LEVOFLOXACIN 250 MG/50 ML IVPB 50 ML IV ONE (07:15)
[2019-01-14] MEDS ORDERED: CATHETER FLUSH 10 ML SYR IV PRN (07:30)
[2019-01-14] MEDS ORDERED: HYDROmorphone 2 MG/ML VIAL (DILAUDID) IV ONE (08:15)
[2019-01-14] MEDS ORDERED: ONDANSETRON 4 MG/2 ML (SDV) Z0FRAN IVP PRN (08:15)
[2019-01-14 09:05] VITALS: BP 136/81
[2019-01-14 09:10] VITALS: BP 136/81
[2019-01-14] MEDS ORDERED: PHEN-640 PO (09:18)
[2019-01-14] MEDS ORDERED: SULF1TAB35 PO (09:18)
[2019-01-14 09:35] VITALS: BP 130/69
[2019-01-14 10:00] VITALS: BP 160/82
--- NOTE | 2019-01-14 11:00 | OPERATIVE REPORT ---
DATE OF SERVICE: PREOPERATIVE DIAGNOSIS: Medium bladder tumor. POSTOPERATIVE DIAGNOSIS: Medium bladder tumor. OPERATION PERFORMED: Transurethral resection of bladder tumor. SURGEON: Keegan Fine MD. ANESTHESIA: General. COMPLICATIONS: None. DESCRIPTION OF PROCEDURE: Under satisfactory general anesthesia, the patient in lithotomy position, genitalia were prepped and draped in the usual sterile fashion. Urethra was dilated with Kalyn sound to #30 Kenyan easily. A 20-Kenyan Sebastian resectoscope was introduced into the bladder, again visualized a solitary medium sized bladder tumor in the left side of the floor above and away from the ureteral orifice. It was completely resected and two good cuts were taken from the base of the tumor. Bleeders were cauterized and hemostasis was complete. There was no further tumor and there was good efflux on both sides. The bladder was evacuated and the resectoscope was removed. The patient tolerated the procedure and anesthesia well and was sent to recovery room in stable condition. Job ID: [id number] DocumentID: [id number] Dictated Date: 01/14/2019 08:00:23 Tissue Technician Date: 01/14/2019 10:59:11 Dictated By: KEEGAN FINE MD
--- NOTE | 2019-01-14 11:04 | Anesthesia-General Post-Op ---
General Patient Condition Mental Status/LOC: Same as Preop Cardiovascular: Satisfactory Nausea/Vomiting: Absent Respiratory: Satisfactory Pain: Controlled Complications: Absent Post Op Complications Complications None Follow Up Care/Instructions Patient Instructions None needed. Anesthesia/Patient Condition Patient Condition Patient is doing well, no complaints, stable vital signs, no apparent adverse anesthesia problems. No complications reported per nursing. ELIZABETH POST CRNA Jan 14, 2019 11:04
== END 2019-01-14 10:00 | disposition home or self-care (01) ==
LOC: SDC 06:06
PROVIDERS: ATTEND Urology
DX: C67.0 Malignant neoplasm of trigone of bladder (principal); I10 Essential (primary) hypertension; N40.0 Benign prostatic hyperplasia without lower urinary tract symptoms; Z85.118 Personal history of other malignant neoplasm of bronchus and lung; Z87.891 Personal history of nicotine dependence; Z79.82 Long term (current) use of aspirin; Z79.899 Other long term (current) drug therapy
CPT/HCPCS: 87081

== ENCOUNTER → 2019-07-17 | Outpatient (CLI) | payer MEDICARE, OTHER ==
[~2019-07-17] MED LIST changes: +PHEN-640 PO; +SULF1TAB35 PO
--- NOTE | 2019-07-17 12:47 | Diagnostic Imaging Report ---
PROCEDURE: CT chest without contrast. TECHNIQUE: Multiple contiguous axial images were obtained through the chest without the use of intravenous contrast. Auto Exposure Controls were utilized during the CT exam to meet ALARA standards for radiation dose reduction. INDICATION: Lung carcinoma, status post right lobectomy. COMPARISON: Correlation is made with prior CT chest from 07/15/2018. FINDINGS: Low dose protocol was again utilized. This does impact overall image quality. No axillary lymphadenopathy is seen. Hilar and mediastinal evaluation is somewhat limited without intravenous contrast but no gross abnormality is seen. Again noted are calcified lymph nodes in the juan bilaterally. Large hiatal hernia is noted. No pericardial or pleural fluid is seen. Previously noted area of scarring in the lateral portion of the right lower lobe is again noted and appears stable. No discrete parenchymal mass is detected. No infiltrate is identified. Upper abdomen is grossly unremarkable. IMPRESSION: Overall stable low-dose CT chest when compared with prior examination from one year earlier. Dictated by: Dictated on workstation # [id number]
== END ==
LOC: RAD 08:37
PROVIDERS: ATTEND Internal Medicine Hematology & Oncology
DX: C34.10 Malignant neoplasm of upper lobe, unspecified bronchus or lung (principal); Z90.2 Acquired absence of lung [part of]
CPT/HCPCS: 71250

== ENCOUNTER 2019-07-23 12:54 | Outpatient (RCR) | payer MEDICARE, OTHER ==
[2019-07-17 09:28] LABS: BASOPHILS # (AUTO) 0.1 10^3/uL (0.0-0.1); BASOPHILS % (AUTO) 1 % (0-10); EOSINOPHILS # (AUTO) 0.3 10^3/uL (0.0-0.3); EOSINOPHILS % (AUTO) 5 % (0-10); HEMATOCRIT 39 % (40-54); HEMOGLOBIN 12.8 G/DL (13.3-17.7); LYMPHOCYTES # (AUTO) 1.7 X 10^3 (1.0-4.0); LYMPHOCYTES % (AUTO) 25 % (12-44); MEAN CORPUSCULAR HEMOGLOBIN 30 PG (25-34); MEAN CORPUSCULAR HGB CONC 33 G/DL (32-36); MEAN CORPUSCULAR VOLUME 93 FL (80-99); MEAN PLATELET VOLUME 11.2 FL (7.4-10.4); MONOCYTES # (AUTO) 0.4 X 10^3 (0.0-1.0); MONOCYTES % (AUTO) 6 % (0-12); NEUTROPHILS # (AUTO) 4.3 X 10^3 (1.8-7.8); NEUTROPHILS % (AUTO) 63 % (42-75); PLATELET COUNT 249 10^3/uL (130-400); RED CELL DISTRIBUTION WIDTH 13.7 % (10.0-14.5); WHITE BLOOD COUNT 6.9 10^3/uL (4.3-11.0)
[2019-07-17 09:43] LABS: ALANINE AMINOTRANSFERASE 19 U/L (0-55); ALBUMIN 4.2 GM/DL (3.2-4.5); ALKALINE PHOSPHATASE 61 U/L (40-136); BILIRUBIN,TOTAL 0.8 MG/DL (0.1-1.0); BUN/CREATININE RATIO 15; CALCIUM 9.6 MG/DL (8.5-10.1); CARBON DIOXIDE 28 MMOL/L (21-32); CHLORIDE 105 MMOL/L (98-107); CREATININE SERUM 0.85 MG/DL (0.60-1.30); GFR ESTIMATED > 60; GLUCOSE 98 MG/DL (70-105); POTASSIUM 4.7 MMOL/L (3.6-5.0); SODIUM 141 MMOL/L (135-145); TOTAL PROTEIN 7.2 GM/DL (6.4-8.2)
== END 2019-10-15 | disposition home or self-care (01) ==
LOC: ONC 12:54
PROVIDERS: ATTEND Internal Medicine Hematology & Oncology
DX: Z08 Encounter for follow-up examination after completed treatment for malignant neoplasm (principal); Z85.118 Personal history of other malignant neoplasm of bronchus and lung; Z85.51 Personal history of malignant neoplasm of bladder; I10 Essential (primary) hypertension; N40.0 Benign prostatic hyperplasia without lower urinary tract symptoms; K44.9 Diaphragmatic hernia without obstruction or gangrene; Z79.899 Other long term (current) drug therapy; Z98.890 Other specified postprocedural states; Z92.21 Personal history of antineoplastic chemotherapy
CPT/HCPCS: 36415; 80053; 85025; 99213

== ENCOUNTER → 2019-08-05 | Outpatient (CLI) | payer MEDICARE, OTHER ==
[2019-08-05 14:53] LABS: HEMOGLOBIN 12.8 G/DL (13.3-17.7); MEAN PLATELET VOLUME 10.9 FL (7.4-10.4); RED CELL DISTRIBUTION WIDTH 13.8 % (10.0-14.5); WHITE BLOOD COUNT 9.4 10^3/uL (4.3-11.0)
[2019-08-05 15:15] LABS: ALANINE AMINOTRANSFERASE 19 U/L (0-55); ALBUMIN 4.3 GM/DL (3.2-4.5); ALKALINE PHOSPHATASE 72 U/L (40-136); BILIRUBIN,TOTAL 0.6 MG/DL (0.1-1.0); BUN/CREATININE RATIO 15; CALCIUM 9.7 MG/DL (8.5-10.1); CARBON DIOXIDE 26 MMOL/L (21-32); CHLORIDE 104 MMOL/L (98-107); CREATININE SERUM 0.91 MG/DL (0.60-1.30); GFR ESTIMATED > 60; GLUCOSE 100 MG/DL (70-105); POTASSIUM 4.1 MMOL/L (3.6-5.0); SODIUM 141 MMOL/L (135-145); TOTAL PROTEIN 7.6 GM/DL (6.4-8.2)
== END ==
LOC: LAB 14:41
PROVIDERS: ATTEND Urology
DX: C67.9 Malignant neoplasm of bladder, unspecified (principal)
CPT/HCPCS: 36415; 80053; 84153; 85027

== ENCOUNTER → 2020-02-03 | Outpatient (CLI) | payer MEDICARE, OTHER ==
[2020-02-03 15:27] LABS: HEMOGLOBIN 12.9 G/DL (13.3-17.7); MEAN PLATELET VOLUME 10.6 FL (7.4-10.4); RED CELL DISTRIBUTION WIDTH 13.6 % (10.0-14.5); WHITE BLOOD COUNT 7.3 10^3/uL (4.3-11.0)
[2020-02-03 15:42] LABS: ALANINE AMINOTRANSFERASE 14 U/L (0-55); ALBUMIN 4.2 GM/DL (3.2-4.5); ALKALINE PHOSPHATASE 54 U/L (40-136); BILIRUBIN,TOTAL 0.4 MG/DL (0.1-1.0); BUN/CREATININE RATIO 16; CALCIUM 9.6 MG/DL (8.5-10.1); CARBON DIOXIDE 29 MMOL/L (21-32); CHLORIDE 105 MMOL/L (98-107); GFR ESTIMATED > 60; GLUCOSE 100 MG/DL (70-105); POTASSIUM 3.7 MMOL/L (3.6-5.0); SODIUM 141 MMOL/L (135-145); TOTAL PROTEIN 7.8 GM/DL (6.4-8.2)
== END ==
LOC: LAB 15:05
PROVIDERS: ATTEND Urology
DX: C67.9 Malignant neoplasm of bladder, unspecified (principal); E29.1 Testicular hypofunction
CPT/HCPCS: 36415; 80053; 84153; 84403; 85027

== ENCOUNTER 2020-07-08 05:34 | Outpatient (CLI) | payer MEDICARE, OTHER ==
[~2020-07-08] VITALS: Ht 177 cm; Wt 68.1 kg
== END 2020-07-08 16:23 | disposition home or self-care (01) ==
LOC: PREOP 05:34
PROVIDERS: ATTEND Urology
DX: Z01.818 Encounter for other preprocedural examination (principal)

== ENCOUNTER → 2020-07-14 | Day surgery (SDC) | payer MEDICARE, OTHER ==
[~2020-07-14] MED LIST changes: +ATROPINE INJ 0.4 MG/ML SDV ONE; +GLYCOPYRROLATE 0.2 MG/ML (ROBINUL) 2 ML VIAL ONE; +LIDOCAINE PF 2% 5 ML (XYLOCAINE) VIAL ONE; +NEOSTIGMINE 3 MG/3 ML VIAL ONE; +ONDANSETRON 4 MG/2 ML (SDV) Z0FRAN ONE; +ROCURONIUM 10 MG/ML 5 ML SYRINGE IV ONE; +SEVOFLURANE (ULTANE) 15 ML INHAL SOLN ONE; +WATER (STERILE) FOR INJECTION 10 ML ONE; +cefTRIAXone 1,000 MG IV (ROCEPHIN) VIAL ONE; +cefTRIAXone FOR IV USE 1,000 MG in WATER (STERILE) FOR INJECTION 10 ML IV ONE; +fentaNYL INJECTION 100 MCG/2 ML AMP ONE; +proPOfol 200 MG/20 ML (DIPRIVAN) VIAL IV ONE
--- NOTE | 2020-07-20 06:54 | Anesthesia-General Post-Op ---
General Significant Intra-Op Events Notes postop addendum for 07-14-20 Patient Condition Mental Status/LOC: Same as Preop Cardiovascular: Satisfactory Nausea/Vomiting: Absent Respiratory: Satisfactory Pain: Controlled Complications: Absent Post Op Complications Complications None Follow Up Care/Instructions Patient Instructions None needed. Anesthesia/Patient Condition Patient Condition Patient is doing well, no complaints, stable vital signs, no apparent adverse anesthesia problems. No complications reported per nursing. SAUNDRA PAGE CRNA Jul 20, 2020 06:54
--- NOTE | 2020-07-27 13:26 | OPERATIVE REPORT ---
DATE OF SERVICE: 07/14/2020 PREOPERATIVE DIAGNOSIS: Bladder tumor. POSTOPERATIVE DIAGNOSIS: Bladder tumor. OPERATION PERFORMED: Transurethral resection of bladder tumor. SURGEON: Keegan Fine MD. ANESTHESIA: General. COMPLICATIONS: None. DESCRIPTION OF PROCEDURE: Under satisfactory general anesthesia, the patient in lithotomy position, genitalia were prepped and draped in the usual sterile fashion. Urethra was dilated with Kalyn sound to accommodate a 27-Irish Sebastian resectoscope. Again, visualized was the bladder tumor that was completely resected and part of the base sent separately. Bleeders were cauterized. Resection and hemostasis was complete. There was no further bladder tumor. Bladder was emptied and the resectoscope was removed. The patient tolerated the procedure and anesthesia well and was sent to recovery room in a stable condition. Job ID: [id number] DocumentID: [id number] Dictated Date: 07/27/2020 10:28:10 [employer] Consultant Date: 07/27/2020 13:25:16 Dictated By: KEEGAN FINE MD
== END | disposition home or self-care (01) ==
LOC: SDC 06:35
PROVIDERS: ATTEND Urology
DX: C67.9 Malignant neoplasm of bladder, unspecified (principal); N40.0 Benign prostatic hyperplasia without lower urinary tract symptoms; I10 Essential (primary) hypertension; M19.91 Primary osteoarthritis, unspecified site; Z87.891 Personal history of nicotine dependence; M06.9 Rheumatoid arthritis, unspecified; K21.9 Gastro-esophageal reflux disease without esophagitis; Z79.899 Other long term (current) drug therapy; Z85.118 Personal history of other malignant neoplasm of bronchus and lung; Z90.2 Acquired absence of lung [part of]; Z96.641 Presence of right artificial hip joint; Z88.0 Allergy status to penicillin; Z11.2 Encounter for screening for other bacterial diseases
CPT/HCPCS: 87081; 88307

== ENCOUNTER → 2020-09-22 | Outpatient (CLI) | payer MEDICARE ==
[~2020-09-22] MED LIST changes: +AMLO-250 PO; +AMLO-251 PO; -AMLO10TA7 PO; -AMLO5TAB9 PO; -ATROPINE INJ 0.4 MG/ML SDV ONE; -GLYCOPYRROLATE 0.2 MG/ML (ROBINUL) 2 ML VIAL ONE; -LIDOCAINE PF 2% 5 ML (XYLOCAINE) VIAL ONE; -NEOSTIGMINE 3 MG/3 ML VIAL ONE; -ONDANSETRON 4 MG/2 ML (SDV) Z0FRAN ONE; +PANT20TA18 PO; -PANT20TA3 PO; -ROCURONIUM 10 MG/ML 5 ML SYRINGE IV ONE; -SEVOFLURANE (ULTANE) 15 ML INHAL SOLN ONE; -WATER (STERILE) FOR INJECTION 10 ML ONE; -cefTRIAXone 1,000 MG IV (ROCEPHIN) VIAL ONE; -cefTRIAXone FOR IV USE 1,000 MG in WATER (STERILE) FOR INJECTION 10 ML IV ONE; -fentaNYL INJECTION 100 MCG/2 ML AMP ONE; -proPOfol 200 MG/20 ML (DIPRIVAN) VIAL IV ONE
--- NOTE | 2020-09-22 12:49 | Diagnostic Imaging Report ---
INDICATION: Hip pain. TIME OF EXAM: 12:24 PM. TECHNIQUE: An AP view of the pelvis and multiple views of the bilateral hips were obtained. FINDINGS: Postop changes of right total hip arthroplasty are noted. The prosthetic elements appear to be in good position without fracture or loosening. The left hip shows normal alignment. The left femoral head and neck are intact. The rami are intact. There are several small lucencies identified within the bones. Small lucencies in the right ischium are noted on the AP view. There is a small lucency in the subtrochanteric left femur. Metastatic disease or myeloma could not be entirely excluded. IMPRESSION: 1. Postop right hip. No acute feature is seen. 2. Small lucencies are identified in the right hemipelvis and proximal left femur. Metastatic disease or myeloma could not be entirely excluded. A bone scan may be useful for further evaluation. Dictated by: Dictated on workstation # [id number]
== END ==
LOC: RAD 12:00
PROVIDERS: ATTEND Urology
DX: M25.559 Pain in unspecified hip (principal); Z96.641 Presence of right artificial hip joint; M89.9 Disorder of bone, unspecified; Z85.51 Personal history of malignant neoplasm of bladder
CPT/HCPCS: 73523

== ENCOUNTER → 2020-09-28 | Outpatient (CLI) | payer MEDICARE ==
--- NOTE | 2020-09-28 13:00 | Diagnostic Imaging Report ---
INDICATION: Bladder cancer. Patient was administered 24.3 mCi technetium 99m MDP intravenously and whole-body imaging was performed after 3 hour delay. No prior studies are available for comparison. There is normal uptake of activity by the axial and appendicular skeleton. There is uptake by the kidneys with excretion into the urinary bladder. There is an area of increased activity projected just to the right and inferior to the urinary bladder. This could be uptake within the right suprapubic ramus. Is also uptake involving anterior right approximately 2nd rib as well as anterolateral right approximately 7th rib. There is some uptake involving left posterior ribs, approximately left 5th and left 12 rib. There is diffuse uptake involving a lower thoracic vertebral body, approximately T11. This is concerning for an acute compression fracture. No other suspicious foci are seen. IMPRESSION: 1. There is uptake involving bilateral ribs. Metastatic disease cannot be excluded. There is also uptake involving the T11 vertebral body suggestive of a compression fracture. MRI would be useful for further evaluation. Activity in the right pelvis is indeterminant. This projects just below and to the right of the urinary bladder. Dictated by: Dictated on workstation # [id number]
== END ==
LOC: CARD 12:00
PROVIDERS: ATTEND Urology
DX: C67.9 Malignant neoplasm of bladder, unspecified (principal)
CPT/HCPCS: 78306; A9503

== ENCOUNTER → 2020-10-05 | Outpatient (CLI) | payer MEDICARE ==
[~2020-10-05] MED LIST changes: +BARIUM SUSPENSION 2.1% (VANILLA SILQ) 450 ML PO ONE; +CATHETER FLUSH 10 ML SYR IV PRN; +HOLD METFORMIN - RECEIVED CONTRAST 20 ML VIAL IV SCH; +IOHEXOL 350 MG/ML 100 ML (OMNIPAQUE 350) VIAL IV ONE; +NS 100 ML (IVPB) BAG IV ONE
[2020-10-05 09:18] LABS: CREATININE SERUM 1.24 MG/DL (0.60-1.30)
--- NOTE | 2020-10-05 10:14 | Diagnostic Imaging Report ---
EXAMINATION: CT Chest, Abdomen and Pelvis with intravenous contrast. TECHNIQUE: Multiple contiguous axial images were obtained through the chest, abdomen and pelvis after the uneventful administration of intravenous contrast. All CT scans use one or more of the following dose optimizing techniques: automated exposure control, MA and/or KvP adjustment based on a patient size and exam type, or iterative reconstruction. HISTORY: Bladder cancer. COMPARISON: 07/17/2019 FINDINGS: There is no edema or pneumonia. No pleural effusion. No pneumothorax. No suspicious nodules. There is no axillary or supraclavicular lymphadenopathy. There is no mediastinal lymphadenopathy. There is a large hiatal hernia. Heart size is normal. There are mild coronary artery calcifications. No pericardial effusion. Aorta is normal in caliber. The liver is normal without focal lesion. There is no biliary ductal dilation. Gallbladder is normal. Pancreas is normal. Spleen is normal. Adrenal glands are normal. The kidneys are normal. There is no hydronephrosis. Bladder is mostly obscured by streak artifact from right hip prosthesis. There is an area of high attenuation in the posterior left portion of the bladder which is difficult to characterize but may reflect postsurgical changes or residual tumor from recent bladder resection. Visualized bowel is normal in caliber without obstruction or inflammation. No free fluid or air. No abdominal or pelvic lymphadenopathy. Aorta is normal in caliber without aneurysm. There is an 8 x 7 cm soft tissue mass replacing the left sacrum and extending into the L5 vertebra. There is mild T8 and mild T11 compression fracture which are likely pathologic. Sclerotic lesions in the right ilium are indeterminate. There is a right 5th rib fracture with small amount of associated soft tissue likely representing a pathologic fracture. Left 5th posterior rib fracture is concerning for metastatic disease as well. Several lytic lesions are seen in the right ilium involving the cortex consistent with metastatic disease. IMPRESSION: 1. Large soft tissue mass in the left aspect of the sacrum consistent with metastatic disease. 2. There are two rib fractures and two thoracic spine fractures which are favored to be pathologic fractures as there appear to be soft tissue components associated with these. 3. Right sacral sclerotic lesion with multiple cortically-based lytic lesions are also concerning for metastatic disease. Dictated by: Dictated on workstation # [id number]
== END ==
LOC: RAD 09:45
PROVIDERS: ATTEND Urology
DX: C67.9 Malignant neoplasm of bladder, unspecified (principal)
CPT/HCPCS: 36415; 71260; 74177; 82565; 84520

== ENCOUNTER 2020-10-26 08:49 | Outpatient (CLI) | payer MEDICARE ==
[2020-10-26] VITALS (13 sets, daily range): BP systolic 117–161; BP diastolic 74–95
[~2020-10-26] VITALS: Ht 175.3 cm; Wt 65.9 kg
[~2020-10-26 08:49] MED LIST changes: -BARIUM SUSPENSION 2.1% (VANILLA SILQ) 450 ML PO ONE; -CATHETER FLUSH 10 ML SYR IV PRN; -HOLD METFORMIN - RECEIVED CONTRAST 20 ML VIAL IV SCH; -IOHEXOL 350 MG/ML 100 ML (OMNIPAQUE 350) VIAL IV ONE; -NS 100 ML (IVPB) BAG IV ONE
[2020-10-26 09:28] LABS: HEMOGLOBIN 12.2 g/dL (13.3-17.7); MEAN PLATELET VOLUME 10.9 fL (9.0-12.2)
[2020-10-26 09:40] LABS: INR 1.1 (0.8-1.4); PROTHROMBIN TIME PATIENT 14.2 SEC (12.2-14.7)
[2020-10-26] MEDS ORDERED: NS IV 1000 ML 1,000 ML IV STA (09:42)
[2020-10-26] MEDS ORDERED: LIDOCAINE 1% INJ 20 ML 20 ML VIAL INJ ONE (09:45)
[2020-10-26] MEDS ORDERED: fentaNYL INJECTION 100 MCG/2 ML AMP IVP ONE (09:45)
[2020-10-26] MEDS ORDERED: MIDAZOLAM 2 MG/2 ML (VERSED) VIAL IVP ONE (09:45)
[2020-10-26] MEDS ORDERED: CATHETER FLUSH 10 ML SYR IV PRN (10:00)
[2020-10-26] MEDS ORDERED: HYDROCODONE (10:12)
--- NOTE | 2020-10-26 11:05 | NUR ---
dressing to left lower back d/i. pt denies pain or c/o. will notify nurse of changes.
--- NOTE | 2020-10-26 11:39 | Pre-Op Note & Conscious Sedat ---
Pre-Operative Progress Note H&P Reviewed The H&P was reviewed, patient examined and no changes noted. Date H&P Reviewed: Oct 26, 2020 Time H&P Reviewed: 09:00 Pre-Op Diagnosis: Sacrum mass Conscious Sedation Pre-Proced Time 09:00 ASA Score 2 For ASA 3 and 4: Consider anesthesia and medical clearance. Also, for patients with a history of failed moderate sedation consider anesthesia. Airway Lungs Heart ASA score ASA 1: a normal healthy patient ASA 2: a patient with a mild systemic disease (mid diabetes, controlled hypertension, obesity ASA 3: a patient with a severe systemic disease that limits activity (angina, COPD, prior Myocardial infarction) ASA 4: a patient with an incapacitating disease that is a constant threat to life (CHF, renal failure) ASA 5: a moribund patient not expected to survive 24 hrs. (ruptured aneurysm) ASA 6: a declared brain- patient whose organs are being harvested. For emergent operations, add the letter E after the classification Mallampati Classification Grade 2 Sedation Plan Analgesia, Amnesia, Plan communicated to team members, Discussed options with patient/fam, Discussed risks with patient/fam The patient is an appropriate candidate to undergo the planned procedure, sedation, and anesthesia. The patient immediately re-assessed prior to indication. KANDY NIETO MD Oct 26, 2020 11:39
--- NOTE | 2020-10-26 11:42 | Diagnostic Imaging Report ---
INDICATION: Sacral mass. Patient presents for CT-guided biopsy. TECHNIQUE: All CT scans use one or more of the following dose optimizing techniques: automated exposure control, MA and/or KvP adjustment based on patient size and exam type or iterative reconstruction. FINDINGS: The patient was brought to the CT suite, placed on table in the prone position. Axial imaging through the pelvis was performed to evaluate appropriate entry site. Sacral region was prepped and draped in the usual sterile fashion. Procedure was performed utilizing conscious sedation with radiology nursing and constant patient monitoring. Patient was given a total of 50 mg of fentanyl intravenously and 1 mg of Versed intravenously. Total procedure time is five minutes. Skin was prepped and draped in the usual sterile fashion. Small amount of 1% lidocaine was utilized for local anesthesia. 18-gauge coaxial Temno needle was advanced and placed with its tip in the center of the solid mass involving the left aspect of the sacrum. A total of four core biopsies were obtained. The needle was removed and hemostasis was obtained using manual compression. Patient tolerated the procedure well and left the department in stable condition. IMPRESSION: Successful CT-guided sacral biopsy utilizing conscious sedation. Pathology results are currently pending. Dictated by: Dictated on workstation # [id number]
[2020-10-26] MEDS ORDERED: HYDROcodone/APAP 5 MG/325 MG (LORTAB) TAB PO PRN (11:45)
== END 2020-10-26 13:40 | disposition home or self-care (01) ==
LOC: SDC 08:49
PROVIDERS: ATTEND Internal Medicine Hematology & Oncology
DX: R22.2 Localized swelling, mass and lump, trunk (principal)
CPT/HCPCS: 36415; 77012; 85027; 85610; 85730; 99156

== ENCOUNTER → 2020-11-02 | Outpatient (CLI) | payer MEDICARE ==
[~2020-11-02] MED LIST changes: +HYDROCODONE
--- NOTE | 2020-11-02 17:28 | Diagnostic Imaging Report ---
INDICATION: Multiple myeloma. TECHNIQUE: Serum blood glucose level at the time of injection is 108 mg/dL. Patient was administered 12 mCi F-18 FDG intravenously in the right antecubital location and whole body PET imaging was performed. In addition, noncontrast CT was performed for attenuation correction and anatomic correlation. COMPARISON: Comparison is made with prior PET/CT study from 06/13/2012. FINDINGS: There is symmetric activity throughout the brain. Soft tissues of the neck are unremarkable. There is intense uptake identified in the left upper extremity. This projects medial to the proximal left humerus but may represent misregistration. This likely represents activity actually within the left proximal humerus. There is also muscular uptake involving the pectus musculature bilaterally. No mediastinal or hilar hypermetabolism is seen. There is some activity adjacent to upper ribs bilaterally which may be muscular as well. No pulmonary parenchymal hypermetabolism is identified. Physiologic activity within the gastrointestinal and genitourinary tract is noted. The known expansile destructive mass of the sacrum which has been recently biopsied does show some hypermetabolism and SUV max of approximately 10. The patient does appear to have multiple osteolytic lesions within the thoracic spine, largest at approximately T9. This shows low level activity. Lower extremities are unremarkable. There are postoperative changes of right hip arthroplasty. Patient does have a large hiatal hernia. 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 There appears to be a hypermetabolic marrow replacing lesion in the proximal left humerus. There are osteolytic lesions in the lower thoracic spine showing mild hypermetabolism as well. No other significant abnormalities seen. Dictated by: Dictated on workstation # [id number]
== END ==
LOC: RAD 10:43
PROVIDERS: ATTEND Internal Medicine Hematology & Oncology
DX: C90.00 Multiple myeloma not having achieved remission (principal)
CPT/HCPCS: 78816; A9552

== ENCOUNTER 2020-11-25 10:05 | Outpatient (RCR) | payer MEDICARE ==
[2020-10-18 10:58] LABS: BASOPHILS # (AUTO) 0.1 10^3/uL (0.0-0.1); BASOPHILS % (AUTO) 1 % (0-10); EOSINOPHILS # (AUTO) 0.1 10^3/uL (0.0-0.3); EOSINOPHILS % (AUTO) 1 % (0-10); HEMATOCRIT 39 % (40-54); HEMOGLOBIN 12.7 g/dL (13.3-17.7); LYMPHOCYTES # (AUTO) 2.1 10^3/uL (1.0-4.0); LYMPHOCYTES % (AUTO) 19 % (12-44); MEAN CORPUSCULAR HEMOGLOBIN 31 pg (25-34); MEAN CORPUSCULAR HGB CONC 33 g/dL (32-36); MEAN CORPUSCULAR VOLUME 94 fL (80-99); MEAN PLATELET VOLUME 11.5 fL (9.0-12.2); MONOCYTES # (AUTO) 0.6 10^3/uL (0.0-1.0); MONOCYTES % (AUTO) 5 % (0-12); NEUTROPHILS # (AUTO) 8.3 10^3/uL (1.8-7.8); NEUTROPHILS % (AUTO) 75 % (42-75); PLATELET COUNT 268 10^3/uL (130-400); WHITE BLOOD COUNT 11.1 10^3/uL (4.3-11.0)
[2020-10-18 11:18] LABS: ALANINE AMINOTRANSFERASE 18 U/L (0-55); ALKALINE PHOSPHATASE 52 U/L (40-136); BILIRUBIN,TOTAL 0.6 MG/DL (0.1-1.0); BUN/CREATININE RATIO 19; CALCIUM 11.2 MG/DL (8.5-10.1); CARBON DIOXIDE 26 MMOL/L (21-32); CHLORIDE 102 MMOL/L (98-107); CREATININE SERUM 1.13 MG/DL (0.60-1.30); GFR ESTIMATED > 60; GLUCOSE 107 MG/DL (70-105); POTASSIUM 3.2 MMOL/L (3.6-5.0); SODIUM 138 MMOL/L (135-145)
[2020-11-23 15:05] LABS: BASOPHILS % (AUTO) 0 % (0-10); EOSINOPHILS % (AUTO) 3 % (0-10); HEMATOCRIT 32 % (40-54); HEMOGLOBIN 10.4 G/DL (13.3-17.7); LYMPHOCYTES % (AUTO) 25 % (12-44); MEAN CORPUSCULAR HEMOGLOBIN 31 PG (25-34); MEAN CORPUSCULAR HGB CONC 33 G/DL (32-36); MEAN CORPUSCULAR VOLUME 94 FL (80-99); MEAN PLATELET VOLUME 10.8 FL (7.4-10.4); MONOCYTES % (AUTO) 12 % (0-12); NEUTROPHILS % (AUTO) 60 % (42-75); PLATELET COUNT 223 10^3/uL (130-400); WHITE BLOOD COUNT 5.4 10^3/uL (4.3-11.0)
[2020-11-23 15:06] LABS: EOSINOPHILS # (AUTO) 0.1 10^3/uL (0.0-0.3); LYMPHOCYTES # (AUTO) 1.3 X 10^3 (1.0-4.0); MONOCYTES # (AUTO) 0.6 X 10^3 (0.0-1.0); NEUTROPHILS # (AUTO) 3.2 X 10^3 (1.8-7.8)
[2020-11-23 15:15] LABS: ALANINE AMINOTRANSFERASE 41 U/L (0-55); ALBUMIN 2.7 GM/DL (3.2-4.5); ALKALINE PHOSPHATASE 37 U/L (40-136); BILIRUBIN,TOTAL 0.5 MG/DL (0.1-1.0); BUN/CREATININE RATIO 23; CALCIUM 9.6 MG/DL (8.5-10.1); CARBON DIOXIDE 30 MMOL/L (21-32); CHLORIDE 101 MMOL/L (98-107); CREATININE SERUM 0.83 MG/DL (0.60-1.30); GFR ESTIMATED > 60; GLUCOSE 110 MG/DL (70-105); SODIUM 131 MMOL/L (135-145); TOTAL PROTEIN 11.4 GM/DL (6.4-8.2)
[~2020-11-25] VITALS: Ht 174.8 cm; Wt 65.8 kg
[~2020-11-25 10:05] MED LIST changes: +BORTEZOMIB 3.5 MG VELCADE SC SCH; +NS IV 1000 ML (CANCER CTR) 1,000 ML ONE; +NS IV 500 ML (CANCER CENTER) 500 ML ONE; +NS IV ONE; +PAMIDRONATE IV ONE; +morphine INJ 4 MG/ML 1 ML (CANCER CTR) IV PRN
== END 2020-11-29 09:44 | disposition home or self-care (01) ==
LOC: ONC 10:05
PROVIDERS: ATTEND Internal Medicine Hematology & Oncology
DX: Z51.11 Encounter for antineoplastic chemotherapy (principal); C34.11 Malignant neoplasm of upper lobe, right bronchus or lung; I10 Essential (primary) hypertension; Z98.890 Other specified postprocedural states; Z92.21 Personal history of antineoplastic chemotherapy; Z85.51 Personal history of malignant neoplasm of bladder
CPT/HCPCS: 80053; 83615; 85025; 96365; 96366; 96375; G0463; 77290; 77295; 77300; 77334; 77336; 77417; 82784; 83883; 84155; 84165; 96360; 99204; 99213; 99214

== ENCOUNTER 2021-01-13 21:19 | Observation (INO) | payer MEDICARE ==
[~2021-01-13] VITALS: Ht 177.8 cm; Wt 47.8 kg
[~2021-01-13 21:19] MED LIST changes: -BORTEZOMIB 3.5 MG VELCADE SC SCH; -LISI40TA PO; +LISI40TA9 PO; -NS IV 1000 ML (CANCER CTR) 1,000 ML ONE; -NS IV 500 ML (CANCER CENTER) 500 ML ONE; -NS IV ONE; -PAMIDRONATE IV ONE; -morphine INJ 4 MG/ML 1 ML (CANCER CTR) IV PRN
[2021-01-13 21:31] LABS: BASOPHILS % (AUTO) 0 % (0-10); EOSINOPHILS % (AUTO) 1 % (0-10); HEMATOCRIT 31 % (40-54); HEMOGLOBIN 10.2 g/dL (13.3-17.7); LYMPHOCYTES # (AUTO) 0.9 10^3/uL (1.0-4.0); LYMPHOCYTES % (AUTO) 23 % (12-44); MEAN CORPUSCULAR HEMOGLOBIN 32 pg (25-34); MEAN CORPUSCULAR HGB CONC 33 g/dL (32-36); MEAN CORPUSCULAR VOLUME 96 fL (80-99); MEAN PLATELET VOLUME 12.8 fL (9.0-12.2); MONOCYTES # (AUTO) 0.5 10^3/uL (0.0-1.0); MONOCYTES % (AUTO) 13 % (0-12); NEUTROPHILS # (AUTO) 2.6 10^3/uL (1.8-7.8); NEUTROPHILS % (AUTO) 63 % (42-75); PLATELET COUNT 177 10^3/uL (130-400)
--- NOTE | 2021-01-13 21:32 | ED General ---
General Chief Complaint: General Problems/Pain Stated Complaint: WEAKNESS / DIARRHEA Source of Information: Patient Exam Limitations: No Limitations History of Present Illness Date Seen by Provider: Jan 13, 2021 Time Seen by Provider: 21:30 Initial Comments To ER from home by EMS with reports of general weakness. He received radiation for bladder cancer and multiple myeloma earlier this week, he has had some diarrhea since then. He had general weakness since then. He tried to check his blood pressure at home and was unable to get a readable blood pressure. EMS notes that upon standing to get onto the cot he was briefly syncopal. His blood pressure was in the 80s systolic on the way here. EMS initiated on IV and started 1 L of IV fluids. Patient states that if his heart stops unexpectedly he wants to be "let go". Patient's states that he has had significant diarrhea since Sunday of this week. She tries to get him to drink water but he will not. She states she believes that he refuses to eat because he wants to . Timing/Duration: 1-2 Days Severity: Moderate Associated Systoms: Weakness Allergies and Home Medications Allergies Coded Allergies: Penicillins (Verified Allergy, Intermediate, HIVES, 07/08/20) Home Medications Amlodipine Besylate 10 Mg Tablet, 10 MG PO DAILY, (Reported) Chlorpheniramine Maleate 4 Mg Tablet, 4 MG PO DAILY, (Reported) Lisinopril 40 Mg Tablet, 40 MG PO DAILY, (Reported) Multivit-Min/FA/Lycopen/Lutein 1 Each Tablet, 1 EACH PO DAILY, (Reported) Pantoprazole Sodium 20 Mg Tablet.dr, 20 MG PO DAILY, (Reported) Patient Home Medication List Home Medication List Reviewed: Yes Review of Systems Review of Systems Constitutional: see HPI EENTM: see HPI Respiratory: no symptoms reported Cardiovascular: no symptoms reported Genitourinary: no symptoms reported Musculoskeletal: no symptoms reported Skin: no symptoms reported Psychiatric/Neurological: No Symptoms Reported Hematologic/Lymphatic: No Symptoms Reported Past Jjdoutn-Xierxn-Idwxdm Hx Patient Social History Former Smoker, Quit: Jul 08, 1967 2nd Hand Smoke Exposure: Yes Recent Hopitalizations: No Immunizations Up To Date Tetanus Booster (TDap): Unknown PED Vaccines UTD: No Date of Pneumonia Vaccine: Sep 03, 2017 Date of Influenza Vaccine: Sep 01, 2019 Seasonal Allergies Seasonal Allergies: Yes Past Medical History Surgeries: Yes (TURBT, RIGHT HIP REPLACEMENT, PARTIAL RIGHT LOWER LUNG REPAIRED, TURP, ) Respiratory: No (part of R lung removed) Cardiac: Yes Hypertension Neurological: No Reproductive Disorders: No Sexually Transmitted Disease: No Genitourinary: Yes (BLADDER TUMOR) Gastrointestinal: Yes Gastroesophageal Reflux Musculoskeletal: Yes (RIGHT HIP REPLACEMENT ) Arthritis Endocrine: No HEENT: No Loss of Vision: Denies Hearing Impairment: Hard of Hearing Cancer: Yes Bladder, Lung What Type of Treatment Did You: Chemotherapy, Surgical Intervention Psychosocial: No Integumentary: No Blood Disorders: No Adverse Reaction/Blood Tranf: No (N/A) Physical Exam Vital Signs Capillary Refill : Height, Weight, BMI Height: 5'10.00" Weight: 155lbs. 0.0oz. 70.056913at; 21.73 BMI Method: General Appearance: No Apparent Distress, WD/WN, Thin, Other (Frail) Eyes: Bilateral Eye Normal Inspection, Bilateral Eye PERRL, Bilateral Eye EOMI Respiratory: No Accessory Muscle Use, No Respiratory Distress Cardiovascular: Regular Rate, Rhythm, Normal Peripheral Pulses Gastrointestinal: Normal Bowel Sounds, Non Tender, Soft Extremity: Normal Capillary Refill, Normal Inspection Neurologic/Psychiatric: Alert, Oriented x3, Other (alert and oriented very pleasant hard of hearing) Skin: Normal Color, Warm/Dry Progress/Results/Core Measures Suspected Sepsis SIRS Temperature: Pulse: Respiratory Rate: Laboratory Tests 01/13/21 21:24: White Blood Count 4.0L Blood Pressure / Mean: Laboratory Tests 01/13/21 21:24: Creatinine 2.78#H, INR Comment 1.0, Platelet Count 177, Total Bilirubin 0.3 Results/Orders Lab Results Laboratory Tests Test 01/13/21 21:24 Range/Units White Blood Count 4.0 L 4.3-11.0 10^3/uL Red Blood Count 3.19 L 4.30-5.52 10^6/uL Hemoglobin 10.2 L 13.3-17.7 g/dL Hematocrit 31 L 40-54 % Mean Corpuscular Volume 96 80-99 fL Mean Corpuscular Hemoglobin 32 25-34 pg Mean Corpuscular Hemoglobin Concent 33 32-36 g/dL Red Cell Distribution Width 15.2 H 10.0-14.5 % Platelet Count 177 130-400 10^3/uL Mean Platelet Volume 12.8 H 9.0-12.2 fL Immature Granulocyte % (Auto) 1 % Neutrophils (%) (Auto) 63 42-75 % Lymphocytes (%) (Auto) 23 12-44 % Monocytes (%) (Auto) 13 H 0-12 % Eosinophils (%) (Auto) 1 0-10 % Basophils (%) (Auto) 0 0-10 % Neutrophils # (Auto) 2.6 1.8-7.8 10^3/uL Lymphocytes # (Auto) 0.9 L 1.0-4.0 10^3/uL Monocytes # (Auto) 0.5 0.0-1.0 10^3/uL Eosinophils # (Auto) 0.0 0.0-0.3 10^3/uL Basophils # (Auto) 0.0 0.0-0.1 10^3/uL Immature Granulocyte # (Auto) 0.0 0.0-0.1 10^3/uL Prothrombin Time 13.9 12.2-14.7 SEC INR Comment 1.0 0.8-1.4 Sodium Level 133 L 135-145 MMOL/L Potassium Level 2.4 *L 3.6-5.0 MMOL/L Chloride Level 106 98-107 MMOL/L Carbon Dioxide Level 15 L 21-32 MMOL/L Anion Gap 12 5-14 MMOL/L Blood Urea Nitrogen 39 H 7-18 MG/DL Creatinine 2.78 #H 0.60-1.30 MG/DL Estimat Glomerular Filtration Rate 22 BUN/Creatinine Ratio 14 Glucose Level 125 H 70-105 MG/DL Calcium Level 8.0 L 8.5-10.1 MG/DL Corrected Calcium 8.9 8.5-10.1 MG/DL Total Bilirubin 0.3 0.1-1.0 MG/DL Aspartate Amino Transf (AST/SGOT) 33 5-34 U/L Alanine Aminotransferase (ALT/SGPT) 31 0-55 U/L Alkaline Phosphatase 51 40-136 U/L Total Protein 5.4 L 6.4-8.2 GM/DL Albumin 2.9 L 3.2-4.5 GM/DL My Orders Orders - SANTOS OROZCO APRN Cbc With Automated Diff (01/13/21 21:26) Comprehensive Metabolic Panel (01/13/21 21:26) Protime With Inr (01/13/21 21:26) Ua Culture If Indicated (01/13/21 21:26) Ed Iv/Invasive Line Start (01/13/21 21:26) Ekg Tracing (01/13/21 21:26) Magnesium (01/13/21 21:59) Uric Acid (01/13/21 22:00) Phosphorus (01/13/21 22:00) Vital Signs/I&O Capillary Refill : Departure Impression Primary Impression: Hypotension Additional Impressions: Orthostatic syncope History of bladder cancer General weakness Disposition: ADMITTED INPATIENT Condition: Stable Admissions Decision to Admit Reason: Admit from ER (General) Decision to Admit/Date: Jan 13, 2021 Time/Decision to Admit Time: 21:43 Departure-Patient Inst. Referrals: CHRISTINA PÉREZ MD (PCP/Family) Primary Care Physician SANTOS OROZCO APRN Jan 13, 2021 21:31
[2021-01-13 21:42] LABS: PROTHROMBIN TIME PATIENT 13.9 SEC (12.2-14.7)
[2021-01-13 21:52] LABS: ALBUMIN 2.9 GM/DL (3.2-4.5); BILIRUBIN,TOTAL 0.3 MG/DL (0.1-1.0); CREATININE SERUM 2.78 MG/DL (0.60-1.30); TOTAL PROTEIN 5.4 GM/DL (6.4-8.2)
[2021-01-13 21:59] LABS: POTASSIUM 2.4 MMOL/L (3.6-5.0)
[2021-01-13] MEDS ORDERED: LOPERAMIDE 2 MG (IMODIUM) TABLET PO ONE (22:15)
[2021-01-13 22:18] LABS: PHOSPHORUS 5.3 MG/DL (2.3-4.7); URIC ACID 6.6 MG/DL (2.6-7.2)
[2021-01-13 23:00] VITALS: BP 113/57
[2021-01-13] MEDS ORDERED: HYDROcodone/APAP 5 MG/325 MG (LORTAB) TAB PO PRN (23:30)
[2021-01-13] MEDS ORDERED: LOPERAMIDE 2 MG (IMODIUM) TABLET PO PRN (23:30)
[2021-01-13] MEDS ORDERED: ONDANSETRON 4 MG/2 ML (SDV) Z0FRAN IV PRN (23:30)
[2021-01-13] MEDS: NS IV 1000 ML 1,000 ML IV SCH (23:49)
[2021-01-13] MEDS: POTASSIUM CL 10MEQ/50ML IVPB 50 ML IV SCH (23:49)
[2021-01-14] MEDS: POTASSIUM CL 10MEQ/50ML IVPB 50 ML IV SCH ×4 (00:52→12:19)
[2021-01-14 04:02] VITALS: BP 129/67
[2021-01-14 05:09] LABS: BASOPHILS % (AUTO) 0 % (0-10); EOSINOPHILS % (AUTO) 1 % (0-10); HEMATOCRIT 32 % (40-54); HEMOGLOBIN 10.5 g/dL (13.3-17.7); LYMPHOCYTES # (AUTO) 0.9 10^3/uL (1.0-4.0); LYMPHOCYTES % (AUTO) 22 % (12-44); MEAN CORPUSCULAR HEMOGLOBIN 32 pg (25-34); MEAN CORPUSCULAR HGB CONC 33 g/dL (32-36); MEAN CORPUSCULAR VOLUME 95 fL (80-99); MEAN PLATELET VOLUME 13.3 fL (9.0-12.2); MONOCYTES # (AUTO) 0.5 10^3/uL (0.0-1.0); MONOCYTES % (AUTO) 12 % (0-12); NEUTROPHILS # (AUTO) 2.7 10^3/uL (1.8-7.8); NEUTROPHILS % (AUTO) 65 % (42-75); PLATELET COUNT 172 10^3/uL (130-400); WHITE BLOOD COUNT 4.2 10^3/uL (4.3-11.0)
[2021-01-14 05:17] LABS: ALBUMIN 3.2 GM/DL (3.2-4.5); POTASSIUM 3.3 MMOL/L (3.6-5.0)
[2021-01-14 05:18] LABS: CALCIUM 8.1 MG/DL (8.5-10.1)
[2021-01-14 05:19] LABS: TOTAL PROTEIN 5.9 GM/DL (6.4-8.2)
[2021-01-14 05:21] LABS: BILIRUBIN,TOTAL 0.3 MG/DL (0.1-1.0)
[2021-01-14 05:23] LABS: CREATININE SERUM 2.36 MG/DL (0.60-1.30)
[2021-01-14] MEDS ORDERED: CATHETER FLUSH 10 ML SYR IV PRN (06:30)
[2021-01-14 08:00] VITALS: BP 140/70
[2021-01-14] MEDS: ENOXAPARIN 30 MG/0.3 ML (LOVENOX) SYR SC SCH (08:26)
[2021-01-14] MEDS: NS IV 1000 ML 1,000 ML IV SCH ×3 (08:26→21:05)
[2021-01-14] MEDS ORDERED: HYDR-3820 PO (11:28)
[2021-01-14] MEDS ORDERED: ONDA8TAB15 PO (11:28)
[2021-01-14] MEDS ORDERED: LENA15CA PO (11:28)
[2021-01-14] MEDS ORDERED: ASPI-1238 PO (11:28)
[2021-01-14] MEDS ORDERED: LOPE-175 PO (11:28)
[2021-01-14] MEDS ORDERED: DEXA4TAB PO (11:28)
[2021-01-14 12:00] VITALS: BP 91/55
[2021-01-14] MEDS: KCL 20 MEQ TAB (K-DUR) PO SCH (12:22)
[2021-01-14] MEDS: MAGNESIUM 1 GM/100 ML IVPB 100 ML IV SCH (12:22)
[2021-01-14] MEDS ORDERED: KCL 10 MEQ TAB (MICRO K) PO ONE (12:30)
--- NOTE | 2021-01-14 13:12 | CONSULTATION REPORT ---
DATE OF SERVICE: 01/14/2021 The patient is admitted to room 416. PHYSICIAN REQUESTING CONSULTATION: Dr. Ludivina Morales. IMPRESSION: 1. An 80-year-old male brought to the emergency room with significant weakness and lightheadedness and found to be in acute renal failure. 2. History of watery diarrhea for the last 3 to 4 days at home along with decreased oral intake. 3. History of IgG kappa multiple myeloma diagnosed in 10/2020 and completed VRD Lite regimen x1 cycle. The patient had just started on cycle #2 approximately a week ago and has had good response with near normalization of protein studies. 4. Large pelvic mass at the time of diagnosis of multiple myeloma, status post palliative radiation therapy for pain control. Completed mid 11/2020. 5. 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 Most recent cystoscopy with no evidence of recurrence. RECOMMENDATIONS: 1. Continue aggressive hydration and correction of electrolyte abnormalities because of acute renal failure due to dehydration. 2. I will hold chemotherapy during his acute illness. Once he starts improving, obtain physical and occupational therapy services for strengthening and ambulation. We will follow the patient with you. BRIEF HISTORY: The patient is an 80-year-old male with history of IgG kappa multiple myeloma diagnosed in 10/2020. 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 Further workup including bone marrow evaluation confirmed the diagnosis of multiple myeloma. He underwent palliative radiation therapy to the pelvis just completed in mid November and started on treatment with VRD Lite regimen completing one cycle with good response as far as the protein studies are concerned. He started cycle #2 approximately a week ago. He developed diarrhea for the past three to four days at home and his oral intake was poor during this time. He became extremely weak and lightheaded at home and was brought to the emergency room. He was found to be significantly dehydrated and orthostatic with acute renal failure. He was admitted to the hospital for further management. Oncology consultation was obtained for concurrent care. PAST MEDICAL HISTORY: Significant for stage I adenocarcinoma of the right upper lobe of lung and underwent a right upper and middle lobectomy in 11/2011 with visceral pleural involvement. He underwent adjuvant chemotherapy with carboplatin and Alimta regimen x4 cycles at that time. He was diagnosed with recurrent superficial bladder cancer and underwent TURBT with intravesical BCG in 2011, but had recurrence in 2015, undergoing further TURBT and treatment with mitomycin C. Most recent outpatient cystoscopy was reported as unremarkable. He has a history of gastroesophageal reflux disease. Osteoarthritis, requiring right hip replacement. SOCIAL HISTORY: He is retired and lives in [place] with his . He has two sons, both of whom live close by. He has a history of tobacco use, but quit in the distant past. No significant alcohol or other recreational drug use. PHYSICAL EXAMINATION: GENERAL: Showed elderly male, weak appearing, awake and oriented, in no acute distress. VITAL SIGNS: Temperature was 35.4 degrees centigrade, pulse rate of 68, respirations 20, blood pressure 140/70 today and 95/59 on presentation. Oxygen saturation was 100% on room air. HEENT: Normocephalic with male pattern baldness, extraocular muscles intact, conjunctivae pink, oral mucosa slightly dry. NECK: Supple, with no JVD. No cervical, supraclavicular or axillary lymphadenopathy palpable. CHEST: Symmetrical. LUNGS: With slightly diminished breath sounds bilaterally without any wheezes or rales. CARDIOVASCULAR: Regular in rate and rhythm. No murmurs or gallops heard. ABDOMEN: Soft, nontender with no hepatosplenomegaly or other masses palpable. EXTREMITIES: Showed no edema. Skin turgor was slightly poor. LABORATORY DATA: CBC done today showed WBC 4.2, hemoglobin 10.5 with platelet count 172,000, neutrophil count 2.7 and lymphocyte count 0.9. Chemistry panel showed sodium level of 134, potassium 3.3, BUN 39 and creatinine 2.36 with GFR 27 mL per minute. On presentation yesterday, his potassium level was 2.4, creatinine 2.79 with GFR 22 mL per minute. Previously, his GFR was more than 60 as recently as 01/10/2021. Stools for C. difficile toxin was negative. Thank you for allowing me to participate in this patient's care. I will follow the patient with you and make appropriate recommendations. Job ID: [id number] DocumentID: [id number] Dictated Date: 01/14/2021 10:49:53 Coagulator Date: 01/14/2021 13:10:47 Dictated By: GERALD GAONA MD
--- NOTE | 2021-01-14 15:50 | History & Physical-Hospitalist ---
History of Present Illness HPI/Chief Complaint Roberto Mak is an 80 year old male with PMH multiple myeloma on chemotherapy, stage I adenocarcinoma of the lung s/p lobectomy, bladder cancer s/p resection and BCG therapy, who presented with weakness. He reports that he had been having diarrhea for the past 4 days. He was taking a shower and almost passed out. He denies fevers and chills. He denies shortness of breath and cough. He denies abdominal pain. He reports nausea, but no vomiting. He denies any chest pain. He denies dysuria. He received pelvic radiation for his multiple myeloma about a month ago. Source: patient Exam Limitations: no limitations Date Seen 01/14/21 Time Seen by a Provider: 09:55 Attending Physician Nguyen Barrios Ronald D MD Referring Physician Date of Admission Jan 13, 2021 at 21:28 Home Medications & Allergies Home Medications Reviewed patient Home Medication Reconciliation performed by pharmacy medication reconciliations account technician and/or nursing. Patients Allergies have been reviewed. Allergies Allergies Coded Allergies Penicillins (Verified Allergy, Intermediate, HIVES, 07/08/20) Past Jzrzstu-Wbijdt-Trcqdl Hx Past Med/Social Hx: Reviewed Nursing Past Med/Soc Hx Patient Social History Alcohol Use: Denies Use Recreational Drug Use: No Smoking Status: Former Smoker Former Smoker, Quit: Jul 08, 1967 2nd Hand Smoke Exposure: Yes Recent Foreign Travel: No Contact w/other who traveled: No Recent Hopitalizations: No Recent Infectious Disease Expo: No Immunizations Up To Date Tetanus Booster (TDap): Unknown Pediatric: No Date of Pneumonia Vaccine: Sep 03, 2017 Date of Influenza Vaccine: Sep 01, 2019 Seasonal Allergies Seasonal Allergies: Yes Past Medical History Cardiac: Hypertension Reproductive: No Sexually Transmitted Disease: No Gastrointestinal: Gastroesophageal Reflux Musculoskeletal: Arthritis Loss of Vision: Denies Hearing Impairment: Hard of Hearing Cancer: Bladder, Lung What Type of Treatment Did You: Chemotherapy, Surgical Intervention History of Blood Disorders: No Adverse Reaction to Blood Nance: No (N/A) Review of Systems Constitutional: weakness EENTM: no symptoms reported Respiratory: no symptoms reported Cardiovascular: no symptoms reported Gastrointestinal: diarrhea, nausea Genitourinary: no symptoms reported Musculoskeletal: no symptoms reported Skin: no symptoms reported Psychiatric/Neurological: No Symptoms Reported Physical Exam Physical Exam Vital Signs Vital Signs - First Documented 01/13/21 21:20 Temp 36.3 Pulse 63 Resp 18 B/P (MAP) 86/58 (67) Pulse Ox 100 Capillary Refill : Less Than 3 Seconds Height, Weight, BMI Height: 5'10.00" Weight: 155lbs. 0.0oz. [id number]; 15.12 BMI Method: General Appearance: No Apparent Distress, WD/WN HEENT: PERRL/EOMI, Pharynx Normal Neck: Normal Inspection, Supple Respiratory: Lungs Clear, Normal Breath Sounds, No Respiratory Distress Cardiovascular: Regular Rate, Rhythm, No Edema, No Murmur Gastrointestinal: Normal Bowel Sounds, Non Tender, Soft Extremity: Normal Inspection, Non Tender, No Pedal Edema Neurologic/Psychiatric: Alert, Oriented x3, Normal Mood/Affect, Motor Weakness Skin: Normal Color, Warm/Dry Results Results/Procedures Labs Laboratory Tests 01/13/21 21:24 01/14/21 04:46 Patient resulted labs reviewed. Assessment/Plan Admission Diagnosis Orthostatic hypotension Admission Status: Observation Assessment and Plan Orthostatic hypotension Acute kidney injury Diarrhea Possible radiation colitis Multiple myeloma History of lung adenocarcinoma History of bladder cancer Severe protein calorie malnutrition BP low, Cr increased on arrival BP improving Cr trending down IV fluids Imodium Hold chemotherapy Oncology consutled, appreciate assistance DVT prophylaxis: Lovenox Diagnosis/Problems Diagnosis/Problems (1) Orthostatic hypotension Status: Acute (2) JOSEFINA (acute kidney injury) Status: Acute (3) Diarrhea Status: Acute Qualifiers: Diarrhea type: unspecified type Qualified Codes: R19.7 - Diarrhea, unspecified (4) Multiple myeloma Status: Acute Qualifiers: Multiple myeloma remission status: not in remission Qualified Codes: C90.00 - Multiple myeloma not having achieved remission (5) History of adenocarcinoma of lung Status: Chronic (6) History of bladder cancer Status: Chronic (7) Severe protein-calorie malnutrition Status: Acute HORTENCIA MCBRIDE MD Jan 14, 2021 15:50
[2021-01-14 16:19] VITALS: BP 136/75
[2021-01-14 20:19] VITALS: BP 103/56
[2021-01-14 23:48] VITALS: BP 132/73
[2021-01-15 04:00] VITALS: BP 157/75
[2021-01-15 06:49] LABS: CHLORIDE 114 MMOL/L (98-107); SODIUM 137 MMOL/L (135-145)
[2021-01-15 06:50] LABS: CALCIUM 7.8 MG/DL (8.5-10.1); GLUCOSE 85 MG/DL (70-105)
[2021-01-15 06:52] LABS: CARBON DIOXIDE 16 MMOL/L (21-32)
[2021-01-15 06:54] LABS: CREATININE SERUM 0.84 MG/DL (0.60-1.30); GFR ESTIMATED > 60
[2021-01-15 06:55] LABS: BUN/CREATININE RATIO 32
[2021-01-15 06:57] LABS: MAGNESIUM 1.6 MG/DL (1.6-2.4)
[2021-01-15] MEDS: POTASSIUM CL 10MEQ/50ML IVPB 50 ML IV SCH (07:07)
[2021-01-15] MEDS: KCL 20 MEQ TAB (K-DUR) PO SCH (07:08)
[2021-01-15] MEDS: MAGNESIUM 1 GM/100 ML IVPB 100 ML IV SCH ×3 (07:08→12:18)
[2021-01-15 07:20] VITALS: BP 153/78
[2021-01-15] MEDS: ENOXAPARIN 30 MG/0.3 ML (LOVENOX) SYR SC SCH (08:34)
[2021-01-15] MEDS: NS IV 1000 ML 1,000 ML IV SCH ×2 (08:35→10:22)
--- NOTE | 2021-01-15 09:55 | Physical Therapy Evaluation ---
PT Evaluation-General Medical Diagnosis Admission Date Jan 13, 2021 at 21:28 Medical Diagnosis: weakness Onset Date: Jan 13, 2021 Therapy Diagnosis Therapy Diagnosis: impaired mobility, strength, endurance Height/Weight Height (Feet): 5 Height (Inches): 10.00 Weight (Pounds): 155 Weight (Ounces): 0.0 Precautions Precautions/Isolations: Fall Prevention, Standard Precautions Referral Physician: Carmen Reason for Referral: Evaluation/Treatment Medical History Additional Medical History Past Medical History Cardiac: Hypertension Reproductive: No Sexually Transmitted Disease: No Gastrointestinal: Gastroesophageal Reflux Musculoskeletal: Arthritis Loss of Vision: Denies Hearing Impairment: Hard of Hearing Cancer: Bladder, Lung What Type of Treatment Did You: Chemotherapy, Surgical Intervention Current History Roberto Mak is an 80 year old male with PMH multiple myeloma on chemotherapy, stage I adenocarcinoma of the lung s/p lobectomy, bladder cancer s/p resection and BCG therapy, who presented with weakness Reviewed History: Yes Social History Home: Single Level Current Living Status: Spouse Entry Into Home: Ramp Prior Prior Level of Function SCALE: Activities may be completed with or without assistive devices. 2-Uinpwwlsyb-lfshdlh completes the activity by him/herself with no assistance from a helper. 5-Set-up or Clean-up Assistance-helper sets up or cleans up; patient completes activity. [place] assists only prior to or following the activity. 4-Supervision or Touching Assistance-helper provides verbal cues and/or touching/steadying and/or contact guard assistance as patient completes activity. Assistance may be provided throughout the activity or intermittently. 3-Partial/Moderate Assistance-helper does LESS THAN HALF the effort. [place] lifts, holds or supports trunk or limbs, but provides less than half the effort. 2-Substantial/Maximal Assistance-helper does MORE THAN HALF the effort. [place] lifts or holds trunk or limbs and provides more than half the effort. 9-Zypqnknlc-aliidj does ALL the effort. Patient does none of the effort to complete the activity. Or, the assistance of 2 or more helpers is required for the patient to complete the activity. If activity was not attempted, code reason: 7-Patient Refused. 9-Not Applicable-not attempted and the patient did not perform the activity before the current illness, exacerbation or injury. 10-Not Attempted due to Environmental Limitations-(lack of equipment, weather restraints, etc.). 88-Not Attempted due to Medical Conditions or Safety Concerns. Bed Mobility: 6 Transfers (B,C,W/C): 6 Gait: 6 Stairs: 6 Indoor Mobility (Ambulation): Independent Stairs: Independent After CA he has been using a rolling walker PT Evaluation-Current Subjective Patient in bed pre tx, agrees to PT, has no complaints of pain Pt/Family Goals to be independent at home Objective Patient Orientation: Person, Place, Situation Attachments: IV ROM/Strength ROM Lower Extremities WNL Strength Lower Extremities LLE (hip flexion 3/5, knee flexion 3+/5, knee extension 3+/5, dorsiflexion 3/5), RLE (hip flexion 3/5, knee flexion 3+/5, knee extension 3+/5, dorsiflexion 3/5) Sensory Hearing: Impaired Sensation Right Lower Extremit: Intact Sensation Left Lower Extremity: Intact Transfers Roll Left to Right (QC): 6 Sit to Lying (QC): 6 Lying to Sitting/Side of Bed(Q: 6 Sit to Stand (QC): 4 Chair/Dji-qd-Ybtjo Xfer(QC): 4 Gait Does the Patient Walk?: Yes Mode of Locomotion: Walk Anticipated Mode of Locomotion: Walk Walk 10 feet (QC): 4 Distance: 40' Gait Assistive Device: FWW Comments/Gait Description CGA, some unsteadiness but no LOB, narrow DAVID with some slight scissoring Balance Sitting Static: Normal Sitting Dynamic: Normal Standing Static: Fair Standing Dynamic: Poor Treatment supine BLE exercises x15 (AP, HS) Assessment/Needs Patient has impaired mobility, strength, endurance. He has some unsteadiness with ambulation and needs CGA. Patient in bed post tx with nurse call, phone, tray, all needs met. Rehab Potential: Fair PT Snf Goals Strategic Alliances Manager Goals PT Strategic Alliances Manager Goals Time Frame: Jan 22, 2021 Roll Left & Right (QC): 6 Sit to Lying (QC): 6 Lying-Sitting on Side/Bed(QC): 6 Sit to Stand (QC): 6 Chair/Sol-sw-Maifa Xfer(QC): 6 Walk 10 feet (QC): 6 Walk 50ft with 2 Turns (QC): 6 PT Plan Problem List Problem List: Activity Tolerance, Functional Strength, Safety, Balance, Gait, Transfer, ROM Treatment/Plan Treatment Plan: Continue Plan of Care Treatment Plan: Education, Functional Activity Skyler, Functional Strength, Gait, Safety, Therapeutic Exercise, Transfers Treatment Duration: Jan 22, 2021 Frequency: 6 times per week Estimated Hrs Per Day: .25 hour per day Patient and/or Family Agrees t: Yes Safety Risks/Education Patient Education: Gait Training, Transfer Techniques, Correct Positioning, Safety Issues Teaching Recipient: Patient Teaching Methods: Demonstration, Discussion Response to Teaching: Reinforcement Needed Discharge Recommendations Plan Patient will perform bed mobility and transfer training, balance and endurance training,functional strengthening, stair training, gait training, and education, to improve functional mobility and independence at home. Therapy Discharge Recommendati: Scheduled Assistance, Home & Family Time/GCodes Time In: 919 Time Out: 939 Total Billed Treatment Time: 20 Total Billed Treatment 1 visit PERFECTO Deshpande' FITO ARELLANO PT Jan 15, 2021 09:55
--- NOTE | 2021-01-15 10:19 | Discharge Summary ---
Discharge Summary Hospital Course Was the Problem List Reviewed?: Yes Problems/Dx: (1) Orthostatic hypotension Status: Acute (2) JOSEFINA (acute kidney injury) Status: Acute (3) Diarrhea Status: Acute Qualifiers: Qualified Codes: R19.7 - Diarrhea, unspecified (4) Multiple myeloma Status: Acute Qualifiers: Qualified Codes: C90.00 - Multiple myeloma not having achieved remission (5) History of adenocarcinoma of lung Status: Chronic (6) History of bladder cancer Status: Chronic (7) Severe protein-calorie malnutrition Status: Acute Hospital Course Date of Admission: Jan 13, 2021 at 21:28 Admission Diagnosis : orthostatic hypotension and acute kidney injury due to dehydration Family Physician/Provider: Dl Crocker MD Date of Discharge: 01/15/21 Discharge Diagnosis: orthostatic hypotension and acute kidney injury due to dehydration Hospital Course: Roberto Mak is an 80-year-old male with multiple myeloma currently undergoing chemotherapy, history of lung adenocarcinoma status post lobectomy, history of bladder cancer status post resection and intravesicular chemotherapy, who was admitted with orthostatic hypotension and acute kidney injury due to dehydration caused by diarrhea. He was given one dose of Imodium on arrival and his diarrhea completely resolved. He was started on IV fluids and his renal function improved rapidly. His orthostasis also resolved. His oral chemotherapy was held. He will follow-up with Dr. Figueroa early next week. He was discharged home in stable condition. He should resume home health care. Labs and Pending Lab Test: Laboratory Tests 01/15/21 05:48: Sodium Level 137, Potassium Level 3.0L, Chloride Level 114H, Carbon Dioxide Level 16L, Anion Gap 7, Blood Urea Nitrogen 27H, Creatinine 0.84, Estimat Glomerular Filtration Rate > 60, BUN/Creatinine Ratio 32, Glucose Level 85, Calcium Level 7.8L, Magnesium Level 1.6 Home Meds Active Reported Imodium A-D (Loperamide HCl) 2 Mg Capsule 2-4 Mg PO UD PRN Aspirin EC (Aspirin) 81 Mg Tablet. 162 Mg PO DAILY TAKES 2 (81MG) CAPS Hydrocodone-Acetamin 10-325 mg (Hydrocodone/Acetaminophen) 1 Each Tablet 1 Ea PO Q4H PRN Revlimid (Lenalidomide) 15 Mg Capsule 15 Mg PO DAILY PRN TAKES FOR 21 DAYS AFTER CHEMO TREATMENT Ondansetron HCl 8 Mg Tablet 8 Mg PO Q8H PRN Dexamethasone 4 Mg Tablet 20 Mg PO UD PRN TAKES 5 (4MG) TABS THE DAY OF CHEMO TREATMENT Amlodipine Besylate 10 Mg Tablet 5 Mg PO DAILY TAKES OF A 10MG TAB Pantoprazole Sodium 20 Mg Tablet.dr 20 Mg PO DAILY Lisinopril 40 Mg Tablet 20 Mg PO DAILY TAKES OF A 40MG TAB Assessment/Pt Instructions Take medications as prescribed. Continue Imodium as needed if diarrhea returns. Follow-up with Dr. Figueroa as scheduled. Resume home health care. Return with worsening lightheadedness, dizziness, diarrhea, or if you feel like you're getting worse. Discharge Planning: <30 minutes discharge planning Discharge Instructions Discharge Diet: No Restrictions Activity as Tolerated: Yes Consultations oncology Discharge Physical Examination Vital Signs Vital Signs Date Time Temp Pulse Resp B/P (MAP) Pulse Ox O2 Delivery O2 Flow Rate FiO2 01/15/21 08:00 100 Room Air 01/15/21 07:20 36.6 62 16 153/78 (103) General Appearance: No Apparent Distress, Chronically ill, Cachetic Respiratory: Lungs Clear, Normal Breath Sounds, No Respiratory Distress Cardiovascular: Regular Rate, Rhythm, No Edema, No Murmur Gastrointestinal: Normal Bowel Sounds, Non Tender, Soft Extremity: Normal Inspection, Non Tender, No Pedal Edema Skin: Normal Color, Warm/Dry Neurologic/Psychiatric: Alert, Oriented x3, No Motor/Sensory Deficits, Normal Mood/Affect Allergies: Coded Allergies: Penicillins (Verified Allergy, Intermediate, HIVES, 07/08/20) Copy Copies To 1: GERALD FIGUEROA Discharge Summary Date of Admission Jan 13, 2021 at 21:28 Date of Discharge Discharge Date: Jan 15, 2021 Discharge Time: 10:19 Admission Diagnosis Orthostatic hypotension Consults/Procedures Consulations Oncology Discharge Diagnosis Orthostatic hypotension and acute kidney injury due to dehydration caused by diarrhea (1) Orthostatic hypotension Status: Acute (2) JOSEFINA (acute kidney injury) Status: Acute (3) Diarrhea Status: Acute Qualifiers: Qualified Codes: R19.7 - Diarrhea, unspecified (4) Multiple myeloma Status: Acute Qualifiers: Qualified Codes: C90.00 - Multiple myeloma not having achieved remission (5) History of adenocarcinoma of lung Status: Chronic (6) History of bladder cancer Status: Chronic (7) Severe protein-calorie malnutrition Status: Acute HORTENCIA MCBRIDE MD Jan 15, 2021 10:18
[2021-01-15 11:41] VITALS: BP 118/66
--- NOTE | 2021-01-15 12:51 | Occ Therapy Progress Note ---
Therapy Progress Note 12:45 Pt preparing for discharge. No OT eval completed, with pt agreement. Pt to resume home health care. DC OT. DAVID DRIVER OT Jan 15, 2021 12:51
[2021-01-15] MEDS ORDERED: KCL 10 MEQ TAB (MICRO K) PO ONE (13:00)
[2021-01-15] MEDS ORDERED: POTASSIUM CL 10MEQ/50ML IVPB 50 ML IV ONE (13:00)
[2021-01-15 14:25] VITALS: BP 118/66
== END 2021-01-15 14:25 | disposition home or self-care (01) ==
LOC: EDUNIT# 21:19 → ER 21:21 → 4TH 21:28 → UNDOADMOB 21:28 → 4TH 23:00 → UNDODISOB 01-15 14:20
PROVIDERS: ADMIT Internal Medicine; ATTEND Internal Medicine
DX: I95.1 Orthostatic hypotension (principal); N17.9 Acute kidney failure, unspecified; R19.7 Diarrhea, unspecified; C90.00 Multiple myeloma not having achieved remission; E43 Unspecified severe protein-calorie malnutrition; I10 Essential (primary) hypertension; K21.9 Gastro-esophageal reflux disease without esophagitis; M19.90 Unspecified osteoarthritis, unspecified site; Z79.82 Long term (current) use of aspirin; Z79.899 Other long term (current) drug therapy; Z88.0 Allergy status to penicillin; Z87.891 Personal history of nicotine dependence; Z92.21 Personal history of antineoplastic chemotherapy; Z85.118 Personal history of other malignant neoplasm of bronchus and lung; Z85.51 Personal history of malignant neoplasm of bladder
CPT/HCPCS: 80048; 80053 ×2; 83735 ×2; 84100; 84550; 85025 ×2; 85610; 93005; 97162; 99284; G0378; 36415

== ENCOUNTER 2021-02-14 13:00 | Outpatient (RCR) | payer MEDICARE ==
[2020-12-06 13:17] LABS: BASOPHILS % (AUTO) 1 % (0-10); EOSINOPHILS # (AUTO) 0.1 10^3/uL (0.0-0.3); EOSINOPHILS % (AUTO) 2 % (0-10); HEMATOCRIT 30 % (40-54); HEMOGLOBIN 9.9 g/dL (13.3-17.7); LYMPHOCYTES % (AUTO) 19 % (12-44); MEAN CORPUSCULAR HEMOGLOBIN 31 pg (25-34); MEAN CORPUSCULAR HGB CONC 33 g/dL (32-36); MEAN CORPUSCULAR VOLUME 94 fL (80-99); MEAN PLATELET VOLUME 10.6 fL (9.0-12.2); MONOCYTES # (AUTO) 0.6 10^3/uL (0.0-1.0); MONOCYTES % (AUTO) 11 % (0-12); NEUTROPHILS # (AUTO) 3.3 10^3/uL (1.8-7.8); NEUTROPHILS % (AUTO) 67 % (42-75); PLATELET COUNT 278 10^3/uL (130-400)
[2020-12-06 13:39] LABS: ALANINE AMINOTRANSFERASE 15 U/L (0-55); ALBUMIN 2.5 GM/DL (3.2-4.5); ALKALINE PHOSPHATASE 30 U/L (40-136); BILIRUBIN,TOTAL 0.3 MG/DL (0.1-1.0); BUN/CREATININE RATIO 26; CALCIUM 9.1 MG/DL (8.5-10.1); CARBON DIOXIDE 24 MMOL/L (21-32); CHLORIDE 105 MMOL/L (98-107); CREATININE SERUM 0.74 MG/DL (0.60-1.30); GFR ESTIMATED > 60; GLUCOSE 90 MG/DL (70-105); POTASSIUM 3.6 MMOL/L (3.6-5.0); SODIUM 133 MMOL/L (135-145); TOTAL PROTEIN 10.1 GM/DL (6.4-8.2)
[2020-12-13 13:15] LABS: EOSINOPHILS % (AUTO) 0 % (0-10); HEMOGLOBIN 10.8 g/dL (13.3-17.7); LYMPHOCYTES % (AUTO) 12 % (12-44); MONOCYTES # (AUTO) 0.1 10^3/uL (0.0-1.0)
[2020-12-13 13:17] LABS: BASOPHILS % (AUTO) 0 % (0-10); HEMATOCRIT 33 % (40-54); LYMPHOCYTES # (AUTO) 0.6 10^3/uL (1.0-4.0); MEAN CORPUSCULAR HEMOGLOBIN 31 pg (25-34); MEAN CORPUSCULAR HGB CONC 33 g/dL (32-36); MEAN CORPUSCULAR VOLUME 95 fL (80-99); MEAN PLATELET VOLUME 11.2 fL (9.0-12.2); MONOCYTES % (AUTO) 1 % (0-12); NEUTROPHILS # (AUTO) 4.4 10^3/uL (1.8-7.8); NEUTROPHILS % (AUTO) 87 % (42-75); PLATELET COUNT 86 10^3/uL (130-400); WHITE BLOOD COUNT 5.1 10^3/uL (4.3-11.0)
[2020-12-13 13:30] LABS: BUN/CREATININE RATIO 26; CALCIUM 9.2 MG/DL (8.5-10.1); CARBON DIOXIDE 23 MMOL/L (21-32); CHLORIDE 102 MMOL/L (98-107); CREATININE SERUM 0.81 MG/DL (0.60-1.30); GFR ESTIMATED > 60; GLUCOSE 111 MG/DL (70-105); SODIUM 130 MMOL/L (135-145)
[2020-12-20 13:30] LABS: HEMOGLOBIN 10.3 g/dL (13.3-17.7); LYMPHOCYTES # (AUTO) 0.5 10^3/uL (1.0-4.0); LYMPHOCYTES % (AUTO) 11 % (12-44); MONOCYTES # (AUTO) 0.1 10^3/uL (0.0-1.0); MONOCYTES % (AUTO) 3 % (0-12)
[2020-12-20 13:32] LABS: BASOPHILS % (AUTO) 0 % (0-10); EOSINOPHILS % (AUTO) 0 % (0-10); HEMATOCRIT 30 % (40-54); MEAN CORPUSCULAR HEMOGLOBIN 32 pg (25-34); MEAN CORPUSCULAR HGB CONC 34 g/dL (32-36); MEAN CORPUSCULAR VOLUME 93 fL (80-99); NEUTROPHILS # (AUTO) 3.7 10^3/uL (1.8-7.8); NEUTROPHILS % (AUTO) 86 % (42-75); WHITE BLOOD COUNT 4.3 10^3/uL (4.3-11.0)
[2020-12-20 13:34] LABS: PLATELET COUNT 34 10^3/uL (130-400)
[2020-12-20 13:37] LABS: BUN/CREATININE RATIO 22; CALCIUM 8.6 MG/DL (8.5-10.1); CARBON DIOXIDE 20 MMOL/L (21-32); CHLORIDE 103 MMOL/L (98-107); CREATININE SERUM 0.74 MG/DL (0.60-1.30); GFR ESTIMATED > 60; GLUCOSE 94 MG/DL (70-105); POTASSIUM 3.5 MMOL/L (3.6-5.0); SODIUM 132 MMOL/L (135-145)
[2020-12-27 13:13] LABS: EOSINOPHILS # (AUTO) 0.1 10^3/uL (0.0-0.3); EOSINOPHILS % (AUTO) 2 % (0-10)
[2020-12-27 13:15] LABS: BASOPHILS % (AUTO) 1 % (0-10); HEMATOCRIT 30 % (40-54); HEMOGLOBIN 9.8 g/dL (13.3-17.7); LYMPHOCYTES # (AUTO) 1.2 10^3/uL (1.0-4.0); LYMPHOCYTES % (AUTO) 37 % (12-44); MEAN CORPUSCULAR HEMOGLOBIN 32 pg (25-34); MEAN CORPUSCULAR HGB CONC 33 g/dL (32-36); MEAN CORPUSCULAR VOLUME 96 fL (80-99); MEAN PLATELET VOLUME 13.6 fL (9.0-12.2); MONOCYTES # (AUTO) 0.8 10^3/uL (0.0-1.0); MONOCYTES % (AUTO) 24 % (0-12); NEUTROPHILS # (AUTO) 1.2 10^3/uL (1.8-7.8); NEUTROPHILS % (AUTO) 37 % (42-75); PLATELET COUNT 202 10^3/uL (130-400); WHITE BLOOD COUNT 3.3 10^3/uL (4.3-11.0)
[2020-12-27 13:30] LABS: BUN/CREATININE RATIO 15; CALCIUM 8.1 MG/DL (8.5-10.1); CARBON DIOXIDE 21 MMOL/L (21-32); CHLORIDE 107 MMOL/L (98-107); CREATININE SERUM 0.73 MG/DL (0.60-1.30); GFR ESTIMATED > 60; GLUCOSE 85 MG/DL (70-105); POTASSIUM 3.7 MMOL/L (3.6-5.0); SODIUM 137 MMOL/L (135-145)
[2021-01-03 13:10] LABS: BASOPHILS % (AUTO) 0 % (0-10); HEMOGLOBIN 10.6 g/dL (13.3-17.7)
[2021-01-03 13:12] LABS: EOSINOPHILS % (AUTO) 1 % (0-10); HEMATOCRIT 31 % (40-54); LYMPHOCYTES # (AUTO) 0.8 10^3/uL (1.0-4.0); LYMPHOCYTES % (AUTO) 15 % (12-44); MEAN CORPUSCULAR HEMOGLOBIN 32 pg (25-34); MEAN CORPUSCULAR HGB CONC 35 g/dL (32-36); MEAN CORPUSCULAR VOLUME 93 fL (80-99); MEAN PLATELET VOLUME 12.9 fL (9.0-12.2); MONOCYTES # (AUTO) 0.6 10^3/uL (0.0-1.0); MONOCYTES % (AUTO) 11 % (0-12); NEUTROPHILS # (AUTO) 3.9 10^3/uL (1.8-7.8); NEUTROPHILS % (AUTO) 74 % (42-75); PLATELET COUNT 70 10^3/uL (130-400); WHITE BLOOD COUNT 5.3 10^3/uL (4.3-11.0)
[2021-01-03 13:21] LABS: BUN/CREATININE RATIO 23; CALCIUM 8.2 MG/DL (8.5-10.1); CARBON DIOXIDE 22 MMOL/L (21-32); CHLORIDE 98 MMOL/L (98-107); GFR ESTIMATED > 60; GLUCOSE 87 MG/DL (70-105); SODIUM 132 MMOL/L (135-145)
[2021-01-03 15:00] LABS: MAGNESIUM 1.7 MG/DL (1.6-2.4)
[2021-01-10 13:24] LABS: BASOPHILS # (AUTO) 0.1 10^3/uL (0.0-0.1); BASOPHILS % (AUTO) 2 % (0-10); EOSINOPHILS # (AUTO) 0.1 10^3/uL (0.0-0.3); EOSINOPHILS % (AUTO) 1 % (0-10); HEMATOCRIT 32 % (40-54); HEMOGLOBIN 10.6 g/dL (13.3-17.7); LYMPHOCYTES % (AUTO) 22 % (12-44); MEAN CORPUSCULAR HEMOGLOBIN 32 pg (25-34); MEAN CORPUSCULAR HGB CONC 34 g/dL (32-36); MEAN CORPUSCULAR VOLUME 94 fL (80-99); MEAN PLATELET VOLUME 13.2 fL (9.0-12.2); MONOCYTES # (AUTO) 0.7 10^3/uL (0.0-1.0); MONOCYTES % (AUTO) 16 % (0-12); NEUTROPHILS # (AUTO) 2.5 10^3/uL (1.8-7.8); NEUTROPHILS % (AUTO) 58 % (42-75); PLATELET COUNT 268 10^3/uL (130-400); WHITE BLOOD COUNT 4.4 10^3/uL (4.3-11.0)
[2021-01-10 13:47] LABS: ALANINE AMINOTRANSFERASE 14 U/L (0-55); ALBUMIN 3.2 GM/DL (3.2-4.5); ALKALINE PHOSPHATASE 68 U/L (40-136); BILIRUBIN,TOTAL 0.8 MG/DL (0.1-1.0); BUN/CREATININE RATIO 21; CALCIUM 8.7 MG/DL (8.5-10.1); CARBON DIOXIDE 21 MMOL/L (21-32); CHLORIDE 100 MMOL/L (98-107); CREATININE SERUM 0.73 MG/DL (0.60-1.30); GFR ESTIMATED > 60; GLUCOSE 99 MG/DL (70-105); POTASSIUM 4.1 MMOL/L (3.6-5.0); SODIUM 133 MMOL/L (135-145); TOTAL PROTEIN 6.2 GM/DL (6.4-8.2)
[2021-01-13 15:11] LABS: IMMUNOFIX PATH REPORT NUMBER Complete (Complete)
[2021-01-17 13:21] LABS: BASOPHILS % (AUTO) 0 % (0-10); EOSINOPHILS # (AUTO) 0.1 10^3/uL (0.0-0.3); EOSINOPHILS % (AUTO) 2 % (0-10); HEMATOCRIT 28 % (40-54); HEMOGLOBIN 9.5 g/dL (13.3-17.7); LYMPHOCYTES # (AUTO) 0.9 10^3/uL (1.0-4.0); LYMPHOCYTES % (AUTO) 18 % (12-44); MEAN CORPUSCULAR HEMOGLOBIN 32 pg (25-34); MEAN CORPUSCULAR HGB CONC 34 g/dL (32-36); MEAN CORPUSCULAR VOLUME 93 fL (80-99); MEAN PLATELET VOLUME 12.4 fL (9.0-12.2); MONOCYTES # (AUTO) 0.9 10^3/uL (0.0-1.0); MONOCYTES % (AUTO) 16 % (0-12); NEUTROPHILS # (AUTO) 3.4 10^3/uL (1.8-7.8); NEUTROPHILS % (AUTO) 64 % (42-75); PLATELET COUNT 74 10^3/uL (130-400); WHITE BLOOD COUNT 5.3 10^3/uL (4.3-11.0)
[2021-01-17 13:41] LABS: BUN/CREATININE RATIO 25; CALCIUM 8.1 MG/DL (8.5-10.1); CARBON DIOXIDE 22 MMOL/L (21-32); CHLORIDE 108 MMOL/L (98-107); CREATININE SERUM 0.64 MG/DL (0.60-1.30); GFR ESTIMATED > 60; GLUCOSE 86 MG/DL (70-105); POTASSIUM 3.8 MMOL/L (3.6-5.0); SODIUM 135 MMOL/L (135-145)
[2021-01-19 13:37] LABS: BUN/CREATININE RATIO 28; CARBON DIOXIDE 14 MMOL/L (21-32); CHLORIDE 111 MMOL/L (98-107); CREATININE SERUM 1.07 MG/DL (0.60-1.30); GFR ESTIMATED > 60; GLUCOSE 116 MG/DL (70-105); MAGNESIUM 1.8 MG/DL (1.6-2.4); SODIUM 132 MMOL/L (135-145)
[2021-01-19 13:40] LABS: POTASSIUM 2.5 MMOL/L (3.6-5.0)
[2021-01-24 13:06] LABS: BASOPHILS % (AUTO) 0 % (0-10); EOSINOPHILS # (AUTO) 0.1 10^3/uL (0.0-0.3); EOSINOPHILS % (AUTO) 1 % (0-10); HEMATOCRIT 27 % (40-54); HEMOGLOBIN 9.6 g/dL (13.3-17.7); LYMPHOCYTES # (AUTO) 0.6 10^3/uL (1.0-4.0); LYMPHOCYTES % (AUTO) 9 % (12-44); MEAN CORPUSCULAR HEMOGLOBIN 32 pg (25-34); MEAN CORPUSCULAR HGB CONC 36 g/dL (32-36); MEAN CORPUSCULAR VOLUME 90 fL (80-99); MONOCYTES # (AUTO) 1.3 10^3/uL (0.0-1.0); MONOCYTES % (AUTO) 17 % (0-12); NEUTROPHILS # (AUTO) 5.5 10^3/uL (1.8-7.8); NEUTROPHILS % (AUTO) 73 % (42-75); PLATELET COUNT 50 10^3/uL (130-400); WHITE BLOOD COUNT 7.6 10^3/uL (4.3-11.0)
[2021-01-24 13:27] LABS: BUN/CREATININE RATIO 25; CALCIUM 7.8 MG/DL (8.5-10.1); CARBON DIOXIDE 18 MMOL/L (21-32); CHLORIDE 104 MMOL/L (98-107); CREATININE SERUM 0.68 MG/DL (0.60-1.30); GFR ESTIMATED > 60; GLUCOSE 110 MG/DL (70-105); POTASSIUM 2.6 MMOL/L (3.6-5.0); SODIUM 130 MMOL/L (135-145)
[2021-01-31 13:18] LABS: BASOPHILS # (AUTO) 0.1 10^3/uL (0.0-0.1); EOSINOPHILS # (AUTO) 0.1 10^3/uL (0.0-0.3); HEMOGLOBIN 9.8 g/dL (13.3-17.7)
[2021-01-31 13:20] LABS: BASOPHILS % (AUTO) 1 % (0-10); EOSINOPHILS % (AUTO) 2 % (0-10); HEMATOCRIT 28 % (40-54); LYMPHOCYTES # (AUTO) 0.8 10^3/uL (1.0-4.0); LYMPHOCYTES % (AUTO) 12 % (12-44); MEAN CORPUSCULAR HEMOGLOBIN 32 pg (25-34); MEAN CORPUSCULAR HGB CONC 35 g/dL (32-36); MEAN CORPUSCULAR VOLUME 93 fL (80-99); MEAN PLATELET VOLUME 13.4 fL (9.0-12.2); MONOCYTES # (AUTO) 0.9 10^3/uL (0.0-1.0); MONOCYTES % (AUTO) 13 % (0-12); NEUTROPHILS # (AUTO) 4.9 10^3/uL (1.8-7.8); NEUTROPHILS % (AUTO) 72 % (42-75); PLATELET COUNT 271 10^3/uL (130-400); WHITE BLOOD COUNT 6.8 10^3/uL (4.3-11.0)
[2021-01-31 13:38] LABS: ALANINE AMINOTRANSFERASE 18 U/L (0-55); ALBUMIN 3.1 GM/DL (3.2-4.5); ALKALINE PHOSPHATASE 44 U/L (40-136); BILIRUBIN,TOTAL 0.6 MG/DL (0.1-1.0); BUN/CREATININE RATIO 13; CALCIUM 8.1 MG/DL (8.5-10.1); CARBON DIOXIDE 23 MMOL/L (21-32); CHLORIDE 98 MMOL/L (98-107); CREATININE SERUM 0.68 MG/DL (0.60-1.30); GFR ESTIMATED > 60; GLUCOSE 99 MG/DL (70-105); MAGNESIUM 1.6 MG/DL (1.6-2.4); POTASSIUM 3.6 MMOL/L (3.6-5.0); SODIUM 130 MMOL/L (135-145); TOTAL PROTEIN 5.3 GM/DL (6.4-8.2)
[~2021-02-14 13:00] MED LIST changes: +ASPI-1238 PO; +BORTEZOMIB 3.5 MG VELCADE SC SCH; +DEXA4TAB PO; +HYDR-3820 PO; +LENA15CA PO; +LOPE-175 PO; +NS IV 1000 ML (CANCER CTR) 1,000 ML ONE; +NS IV 500 ML (CANCER CENTER) 500 ML ONE; +ONDA8TAB15 PO; +POTASSIUM CHL INJ (CANCER CTR) 20 MEQ in NS IV 1000 ML (CANCER CTR) 1,000 ML IV ONE
[2021-02-14 13:24] LABS: BASOPHILS % (AUTO) 0 % (0-10); EOSINOPHILS # (AUTO) 0.1 10^3/uL (0.0-0.3); EOSINOPHILS % (AUTO) 1 % (0-10); HEMATOCRIT 30 % (40-54); HEMOGLOBIN 10.4 g/dL (13.3-17.7); LYMPHOCYTES # (AUTO) 0.5 X 10^3 (1.0-4.0); LYMPHOCYTES % (AUTO) 6 % (12-44); MEAN CORPUSCULAR HEMOGLOBIN 33 pg (25-34); MEAN CORPUSCULAR HGB CONC 35 g/dL (32-36); MEAN CORPUSCULAR VOLUME 94 fL (80-99); MEAN PLATELET VOLUME 11.2 fL (9.0-12.2); MONOCYTES # (AUTO) 0.7 X 10^3 (0.0-1.0); MONOCYTES % (AUTO) 7 % (0-12); NEUTROPHILS # (AUTO) 7.9 X 10^3 (1.8-7.8); NEUTROPHILS % (AUTO) 86 % (42-75); PLATELET COUNT 274 10^3/uL (130-400); WHITE BLOOD COUNT 9.2 10^3/uL (4.3-11.0)
[2021-02-14 13:35] LABS: ALANINE AMINOTRANSFERASE 13 U/L (0-55); ALBUMIN 3.2 GM/DL (3.2-4.5); ALKALINE PHOSPHATASE 48 U/L (40-136); BILIRUBIN,TOTAL 0.7 MG/DL (0.1-1.0); BUN/CREATININE RATIO 22; CALCIUM 8.2 MG/DL (8.5-10.1); CARBON DIOXIDE 20 MMOL/L (21-32); CHLORIDE 99 MMOL/L (98-107); CREATININE SERUM 0.73 MG/DL (0.60-1.30); GFR ESTIMATED > 60; GLUCOSE 166 MG/DL (70-105); POTASSIUM 3.4 MMOL/L (3.6-5.0); SODIUM 128 MMOL/L (135-145); TOTAL PROTEIN 5.4 GM/DL (6.4-8.2)
[2021-02-15 08:10] LABS: CLARITY,URINE CLOUDY; COLOR,URINE BROWN; GLUCOSE, URINE (UA) NEGATIVE (NEGATIVE); KETONES,URINE TRACE (NEGATIVE); LEUKOCYTE ESTERASE ,URINE 2+ (NEGATIVE); NITRITE,URINE POSITIVE (NEGATIVE); PH,URINE 6.5 (5-9); PROTEIN,URINE TRACE (NEGATIVE)
[2021-02-15 08:28] LABS: BACTERIA,URINE FEW /HPF; BILIRUBIN,URINE 1+ (NEGATIVE); RBC,URINE 0-2 /HPF; WBC,URINE >100 /HPF
[2021-02-15 08:29] LABS: AMORPHOUS SEDIMENT,UR LARGE AMOR URATES /LPF; CALCIUM OXALATE CRYSTALS,UR FEW /LPF
== END 2021-02-27 | disposition home or self-care (01) ==
LOC: ONC 13:00
PROVIDERS: ATTEND Internal Medicine Hematology & Oncology
DX: Z51.11 Encounter for antineoplastic chemotherapy (principal); C90.00 Multiple myeloma not having achieved remission; D69.6 Thrombocytopenia, unspecified; E83.52 Hypercalcemia; E86.0 Dehydration; I10 Essential (primary) hypertension; Z98.890 Other specified postprocedural states; Z92.21 Personal history of antineoplastic chemotherapy; Z85.51 Personal history of malignant neoplasm of bladder; Z92.3 Personal history of irradiation; Z85.118 Personal history of other malignant neoplasm of bronchus and lung; Z90.2 Acquired absence of lung [part of]; Z90.6 Acquired absence of other parts of urinary tract
CPT/HCPCS: 36415; 77336; 77417; 80048; 80053; 81000; 82232; 82784; 83735; 83883; 84155; 84165; 85025; 86334; 87077; 87088; 87324; 87449; 96360; 96361; 96365; 96366; 96401

== ENCOUNTER 2021-05-09 13:21 | Outpatient (RCR) | payer MEDICARE ==
[2021-03-07 14:07] LABS: BASOPHILS % (AUTO) 0 % (0-10); EOSINOPHILS # (AUTO) 0.1 10^3/uL (0.0-0.3); EOSINOPHILS % (AUTO) 2 % (0-10); HEMATOCRIT 33 % (40-54); HEMOGLOBIN 11.5 g/dL (13.3-17.7); LYMPHOCYTES # (AUTO) 0.7 X 10^3 (1.0-4.0); LYMPHOCYTES % (AUTO) 15 % (12-44); MEAN CORPUSCULAR HEMOGLOBIN 32 pg (25-34); MEAN CORPUSCULAR HGB CONC 35 g/dL (32-36); MEAN CORPUSCULAR VOLUME 91 fL (80-99); MONOCYTES # (AUTO) 0.6 X 10^3 (0.0-1.0); MONOCYTES % (AUTO) 12 % (0-12); NEUTROPHILS # (AUTO) 3.4 X 10^3 (1.8-7.8); NEUTROPHILS % (AUTO) 71 % (42-75); PLATELET COUNT 245 10^3/uL (130-400); WHITE BLOOD COUNT 4.8 10^3/uL (4.3-11.0)
[2021-03-07 14:29] LABS: ALANINE AMINOTRANSFERASE 17 U/L (0-55); ALBUMIN 3.3 GM/DL (3.2-4.5); ALKALINE PHOSPHATASE 36 U/L (40-136); BILIRUBIN,TOTAL 0.7 MG/DL (0.1-1.0); BUN/CREATININE RATIO 21; CALCIUM 8.3 MG/DL (8.5-10.1); CARBON DIOXIDE 24 MMOL/L (21-32); CHLORIDE 92 MMOL/L (98-107); CREATININE SERUM 0.62 MG/DL (0.60-1.30); GFR ESTIMATED > 60; GLUCOSE 91 MG/DL (70-105); MAGNESIUM 1.8 MG/DL (1.6-2.4); POTASSIUM 3.9 MMOL/L (3.6-5.0); TOTAL PROTEIN 5.6 GM/DL (6.4-8.2)
[2021-03-07 14:33] LABS: SODIUM 123 MMOL/L (135-145)
[2021-04-04 13:34] LABS: BASOPHILS % (AUTO) 0 % (0-10); EOSINOPHILS % (AUTO) 0 % (0-10); HEMATOCRIT 34 % (40-54); HEMOGLOBIN 11.7 g/dL (13.3-17.7); LYMPHOCYTES # (AUTO) 0.7 10^3/uL (1.0-4.0); LYMPHOCYTES % (AUTO) 14 % (12-44); MEAN CORPUSCULAR HEMOGLOBIN 32 pg (25-34); MEAN CORPUSCULAR HGB CONC 34 g/dL (32-36); MEAN CORPUSCULAR VOLUME 93 fL (80-99); MEAN PLATELET VOLUME 9.8 fL (9.0-12.2); MONOCYTES # (AUTO) 0.6 10^3/uL (0.0-1.0); MONOCYTES % (AUTO) 11 % (0-12); NEUTROPHILS % (AUTO) 75 % (42-75); PLATELET COUNT 257 10^3/uL (130-400); WHITE BLOOD COUNT 5.4 10^3/uL (4.3-11.0)
[2021-04-04 13:43] LABS: ALANINE AMINOTRANSFERASE 20 U/L (0-55); ALBUMIN 3.3 GM/DL (3.2-4.5); ALKALINE PHOSPHATASE 34 U/L (40-136); BILIRUBIN,TOTAL 0.8 MG/DL (0.1-1.0); BUN/CREATININE RATIO 26; CALCIUM 8.3 MG/DL (8.5-10.1); CARBON DIOXIDE 27 MMOL/L (21-32); CHLORIDE 94 MMOL/L (98-107); CREATININE SERUM 0.65 MG/DL (0.60-1.30); GFR ESTIMATED > 60; GLUCOSE 104 MG/DL (70-105); POTASSIUM 3.7 MMOL/L (3.6-5.0); SODIUM 128 MMOL/L (135-145); TOTAL PROTEIN 5.1 GM/DL (6.4-8.2)
[~2021-05-09 13:21] MED LIST changes: -BORTEZOMIB 3.5 MG VELCADE SC SCH; -NS IV 500 ML (CANCER CENTER) 500 ML ONE; -POTASSIUM CHL INJ (CANCER CTR) 20 MEQ in NS IV 1000 ML (CANCER CTR) 1,000 ML IV ONE; -SULF1TAB35 PO; +SULF1TAB38 PO
[2021-05-09 13:39] LABS: BASOPHILS % (AUTO) 0 % (0-10); EOSINOPHILS % (AUTO) 0 % (0-10); HEMATOCRIT 32 % (40-54); HEMOGLOBIN 11.2 g/dL (13.3-17.7); LYMPHOCYTES # (AUTO) 0.7 10^3/uL (1.0-4.0); LYMPHOCYTES % (AUTO) 18 % (12-44); MEAN CORPUSCULAR HEMOGLOBIN 31 pg (25-34); MEAN CORPUSCULAR HGB CONC 35 g/dL (32-36); MEAN CORPUSCULAR VOLUME 90 fL (80-99); MEAN PLATELET VOLUME 9.5 fL (9.0-12.2); MONOCYTES # (AUTO) 0.4 10^3/uL (0.0-1.0); MONOCYTES % (AUTO) 9 % (0-12); NEUTROPHILS # (AUTO) 2.9 10^3/uL (1.8-7.8); NEUTROPHILS % (AUTO) 72 % (42-75); PLATELET COUNT 242 10^3/uL (130-400)
[2021-05-09 14:04] LABS: ALANINE AMINOTRANSFERASE 10 U/L (0-55); ALKALINE PHOSPHATASE 28 U/L (40-136); BILIRUBIN,TOTAL 0.9 MG/DL (0.1-1.0); BUN/CREATININE RATIO 21; CALCIUM 8.4 MG/DL (8.5-10.1); CARBON DIOXIDE 28 MMOL/L (21-32); CHLORIDE 94 MMOL/L (98-107); CREATININE SERUM 0.68 MG/DL (0.60-1.30); GFR ESTIMATED > 60; GLUCOSE 84 MG/DL (70-105); POTASSIUM 3.6 MMOL/L (3.6-5.0); SODIUM 128 MMOL/L (135-145); TOTAL PROTEIN 5.3 GM/DL (6.4-8.2)
== END 2021-06-05 | disposition home or self-care (01) ==
LOC: ONC 13:21
PROVIDERS: ATTEND Internal Medicine Hematology & Oncology
DX: Z51.11 Encounter for antineoplastic chemotherapy (principal); C90.00 Multiple myeloma not having achieved remission; D69.6 Thrombocytopenia, unspecified; E83.52 Hypercalcemia; E86.0 Dehydration; I10 Essential (primary) hypertension; E87.1 Hypo-osmolality and hyponatremia; Z98.890 Other specified postprocedural states; Z92.21 Personal history of antineoplastic chemotherapy; Z85.51 Personal history of malignant neoplasm of bladder; Z92.3 Personal history of irradiation; Z85.118 Personal history of other malignant neoplasm of bronchus and lung; Z90.2 Acquired absence of lung [part of]; Z90.6 Acquired absence of other parts of urinary tract
CPT/HCPCS: 80053; 82232; 82784 ×3; 83735; 83883; 84165; 85025; G0463; 84155; 96360; 96361; 99213

== ENCOUNTER → 2021-07-14 | Outpatient (CLI) | payer MEDICARE ==
[~2021-07-14] MED LIST changes: -NS IV 1000 ML (CANCER CTR) 1,000 ML ONE
[2021-07-14 07:40] LABS: BILIRUBIN,URINE NEGATIVE (NEGATIVE); CLARITY,URINE SL CLOUDY; COLOR,URINE ORANGE; GLUCOSE, URINE (UA) NEGATIVE (NEGATIVE); KETONES,URINE TRACE (NEGATIVE); LEUKOCYTE ESTERASE ,URINE 1+ (NEGATIVE); NITRITE,URINE POSITIVE (NEGATIVE); PH,URINE 6.5 (5-9); PROTEIN,URINE NEGATIVE (NEGATIVE)
[2021-07-14 07:47] LABS: BACTERIA,URINE MODERATE /HPF; CALCIUM OXALATE CRYSTALS,UR MODERATE /LPF; RBC,URINE 25-50 /HPF; SQUAMOUS EPITHELIAL CELL,UR 0-2 /HPF
[2021-07-14 07:48] LABS: AMORPHOUS SEDIMENT,UR LARGE AMOR URATES /LPF
== END ==
LOC: ONC 07:33
PROVIDERS: ATTEND Nurse Practitioner Adult Health
DX: C90.00 Multiple myeloma not having achieved remission (principal); C34.11 Malignant neoplasm of upper lobe, right bronchus or lung; I10 Essential (primary) hypertension; E83.52 Hypercalcemia; E86.0 Dehydration; R30.9 Painful micturition, unspecified; Z85.51 Personal history of malignant neoplasm of bladder; Z92.21 Personal history of antineoplastic chemotherapy; Z72.0 Tobacco use
CPT/HCPCS: 81000; 87077; 87088

== ENCOUNTER 2021-08-03 14:27 | Outpatient (RCR) | payer MEDICARE ==
[2021-06-06 13:20] LABS: BASOPHILS % (AUTO) 1 % (0-10); EOSINOPHILS % (AUTO) 0 % (0-10); HEMATOCRIT 29 % (40-54); HEMOGLOBIN 9.9 g/dL (13.3-17.7); LYMPHOCYTES # (AUTO) 0.7 10^3/uL (1.0-4.0); LYMPHOCYTES % (AUTO) 20 % (12-44); MEAN CORPUSCULAR HEMOGLOBIN 33 pg (25-34); MEAN CORPUSCULAR HGB CONC 34 g/dL (32-36); MEAN CORPUSCULAR VOLUME 95 fL (80-99); MEAN PLATELET VOLUME 9.9 fL (9.0-12.2); MONOCYTES # (AUTO) 0.3 10^3/uL (0.0-1.0); MONOCYTES % (AUTO) 9 % (0-12); NEUTROPHILS # (AUTO) 2.6 10^3/uL (1.8-7.8); NEUTROPHILS % (AUTO) 71 % (42-75); PLATELET COUNT 194 10^3/uL (130-400); WHITE BLOOD COUNT 3.7 10^3/uL (4.3-11.0)
[2021-06-06 13:35] LABS: ALANINE AMINOTRANSFERASE 12 U/L (0-55); ALBUMIN 2.6 GM/DL (3.2-4.5); ALKALINE PHOSPHATASE 28 U/L (40-136); BILIRUBIN,TOTAL 0.9 MG/DL (0.1-1.0); BUN/CREATININE RATIO 25; CALCIUM 8.3 MG/DL (8.5-10.1); CARBON DIOXIDE 25 MMOL/L (21-32); CHLORIDE 98 MMOL/L (98-107); CREATININE SERUM 0.67 MG/DL (0.60-1.30); GFR ESTIMATED > 60; GLUCOSE 122 MG/DL (70-105); POTASSIUM 3.8 MMOL/L (3.6-5.0); SODIUM 128 MMOL/L (135-145); TOTAL PROTEIN 4.9 GM/DL (6.4-8.2)
[2021-06-22 12:12] LABS: BILIRUBIN,URINE NEGATIVE (NEGATIVE); CLARITY,URINE CLOUDY; COLOR,URINE YELLOW; GLUCOSE, URINE (UA) NEGATIVE (NEGATIVE); KETONES,URINE TRACE (NEGATIVE); LEUKOCYTE ESTERASE ,URINE 2+ (NEGATIVE); NITRITE,URINE POSITIVE (NEGATIVE); PROTEIN,URINE NEGATIVE (NEGATIVE)
[2021-06-22 12:31] LABS: BACTERIA,URINE LARGE /HPF; CALCIUM OXALATE CRYSTALS,UR RARE /LPF; RBC,URINE RARE /HPF; SQUAMOUS EPITHELIAL CELL,UR RARE /HPF
[2021-07-04 14:11] LABS: BASOPHILS % (AUTO) 1 % (0-10); EOSINOPHILS % (AUTO) 1 % (0-10); HEMATOCRIT 33 % (40-54); HEMOGLOBIN 11.1 g/dL (13.3-17.7); LYMPHOCYTES # (AUTO) 0.6 10^3/uL (1.0-4.0); LYMPHOCYTES % (AUTO) 19 % (12-44); MEAN CORPUSCULAR HEMOGLOBIN 33 pg (25-34); MEAN CORPUSCULAR HGB CONC 34 g/dL (32-36); MEAN CORPUSCULAR VOLUME 98 fL (80-99); MEAN PLATELET VOLUME 9.6 fL (9.0-12.2); MONOCYTES # (AUTO) 0.2 10^3/uL (0.0-1.0); MONOCYTES % (AUTO) 8 % (0-12); NEUTROPHILS # (AUTO) 2.2 10^3/uL (1.8-7.8); NEUTROPHILS % (AUTO) 72 % (42-75); PLATELET COUNT 212 10^3/uL (130-400); WHITE BLOOD COUNT 3.1 10^3/uL (4.3-11.0)
[2021-07-04 14:31] LABS: ALBUMIN 2.7 GM/DL (3.2-4.5); BILIRUBIN,TOTAL 0.8 MG/DL (0.1-1.0); CALCIUM 8.4 MG/DL (8.5-10.1); CREATININE SERUM 0.66 MG/DL (0.60-1.30); POTASSIUM 3.6 MMOL/L (3.6-5.0); TOTAL PROTEIN 5.5 GM/DL (6.4-8.2)
[2021-08-03 14:40] LABS: BASOPHILS % (AUTO) 1 % (0-10); EOSINOPHILS % (AUTO) 0 % (0-10); HEMATOCRIT 31 % (40-54); HEMOGLOBIN 10.4 g/dL (13.3-17.7); LYMPHOCYTES # (AUTO) 0.8 X 10^3 (1.0-4.0); LYMPHOCYTES % (AUTO) 22 % (12-44); MEAN CORPUSCULAR HEMOGLOBIN 33 pg (25-34); MEAN CORPUSCULAR HGB CONC 34 g/dL (32-36); MEAN CORPUSCULAR VOLUME 99 fL (80-99); MEAN PLATELET VOLUME 9.9 fL (9.0-12.2); MONOCYTES # (AUTO) 0.2 X 10^3 (0.0-1.0); MONOCYTES % (AUTO) 6 % (0-12); NEUTROPHILS # (AUTO) 2.5 X 10^3 (1.8-7.8); NEUTROPHILS % (AUTO) 70 % (42-75); PLATELET COUNT 261 10^3/uL (130-400); WHITE BLOOD COUNT 3.6 10^3/uL (4.3-11.0)
[2021-08-03 15:11] LABS: ALBUMIN 2.5 GM/DL (3.2-4.5); BILIRUBIN,TOTAL 0.5 MG/DL (0.1-1.0); CALCIUM 8.6 MG/DL (8.5-10.1); CREATININE SERUM 0.69 MG/DL (0.60-1.30); POTASSIUM 4.1 MMOL/L (3.6-5.0); TOTAL PROTEIN 5.4 GM/DL (6.4-8.2)
== END 2021-09-04 | disposition home or self-care (01) ==
LOC: ONC 14:27
PROVIDERS: ATTEND Internal Medicine Hematology & Oncology
DX: Z51.11 Encounter for antineoplastic chemotherapy (principal); C90.00 Multiple myeloma not having achieved remission; C79.51 Secondary malignant neoplasm of bone; E83.52 Hypercalcemia; E86.0 Dehydration; I10 Essential (primary) hypertension; E87.1 Hypo-osmolality and hyponatremia; Z98.890 Other specified postprocedural states; Z92.21 Personal history of antineoplastic chemotherapy; Z85.51 Personal history of malignant neoplasm of bladder; Z92.3 Personal history of irradiation; Z85.118 Personal history of other malignant neoplasm of bronchus and lung; Z90.2 Acquired absence of lung [part of]; Z90.6 Acquired absence of other parts of urinary tract
CPT/HCPCS: 80053; 82232; 82784 ×3; 83883; 84165; 85025; G0463; 81000; 84155; 87077; 87088; 99213

== ENCOUNTER 2021-11-22 14:46 | Outpatient (RCR) | payer MEDICARE ==
[2021-09-12 15:49] LABS: BASOPHILS % (AUTO) 1 % (0-10); EOSINOPHILS % (AUTO) 1 % (0-10); HEMATOCRIT 30 % (40-54); HEMOGLOBIN 9.6 g/dL (13.3-17.7); LYMPHOCYTES # (AUTO) 0.9 X 10^3 (1.0-4.0); LYMPHOCYTES % (AUTO) 20 % (12-44); MEAN CORPUSCULAR HEMOGLOBIN 35 pg (25-34); MEAN CORPUSCULAR HGB CONC 33 g/dL (32-36); MEAN CORPUSCULAR VOLUME 108 fL (80-99); MEAN PLATELET VOLUME 10.2 fL (9.0-12.2); MONOCYTES # (AUTO) 0.2 X 10^3 (0.0-1.0); MONOCYTES % (AUTO) 6 % (0-12); NEUTROPHILS # (AUTO) 3.2 X 10^3 (1.8-7.8); NEUTROPHILS % (AUTO) 73 % (42-75); PLATELET COUNT 249 10^3/uL (130-400); WHITE BLOOD COUNT 4.4 10^3/uL (4.3-11.0)
[2021-09-12 16:12] LABS: ALBUMIN 2.5 GM/DL (3.2-4.5); BILIRUBIN,TOTAL 0.7 MG/DL (0.1-1.0); CALCIUM 8.8 MG/DL (8.5-10.1); CREATININE SERUM 0.64 MG/DL (0.60-1.30); POTASSIUM 3.5 MMOL/L (3.6-5.0); TOTAL PROTEIN 6.3 GM/DL (6.4-8.2)
[2021-10-10 14:41] LABS: BASOPHILS % (AUTO) 1 % (0-10); EOSINOPHILS % (AUTO) 1 % (0-10); HEMATOCRIT 28 % (40-54); HEMOGLOBIN 9.2 g/dL (13.3-17.7); LYMPHOCYTES % (AUTO) 29 % (12-44); MEAN CORPUSCULAR HEMOGLOBIN 34 pg (25-34); MEAN CORPUSCULAR HGB CONC 33 g/dL (32-36); MEAN CORPUSCULAR VOLUME 104 fL (80-99); MEAN PLATELET VOLUME 10.1 fL (9.0-12.2); MONOCYTES # (AUTO) 0.2 10^3/uL (0.0-1.0); MONOCYTES % (AUTO) 4 % (0-12); NEUTROPHILS # (AUTO) 2.3 10^3/uL (1.8-7.8); NEUTROPHILS % (AUTO) 65 % (42-75); PLATELET COUNT 225 10^3/uL (130-400); WHITE BLOOD COUNT 3.6 10^3/uL (4.3-11.0)
[2021-10-10 15:09] LABS: ALBUMIN 2.5 GM/DL (3.2-4.5); BILIRUBIN,TOTAL 0.5 MG/DL (0.1-1.0); CALCIUM 8.6 MG/DL (8.5-10.1); CREATININE SERUM 0.7 MG/DL (0.60-1.30); POTASSIUM 3.2 MMOL/L (3.6-5.0); TOTAL PROTEIN 6.9 GM/DL (6.4-8.2)
[2021-11-21 15:31] LABS: BASOPHILS % (AUTO) 1 % (0-10); EOSINOPHILS % (AUTO) 1 % (0-10); HEMATOCRIT 26 % (40-54); HEMOGLOBIN 8.5 g/dL (13.3-17.7); LYMPHOCYTES # (AUTO) 1.3 10^3/uL (1.0-4.0); LYMPHOCYTES % (AUTO) 34 % (12-44); MEAN CORPUSCULAR HEMOGLOBIN 34 pg (25-34); MEAN CORPUSCULAR HGB CONC 33 g/dL (32-36); MEAN CORPUSCULAR VOLUME 104 fL (80-99); MEAN PLATELET VOLUME 10.5 fL (9.0-12.2); MONOCYTES # (AUTO) 0.2 10^3/uL (0.0-1.0); MONOCYTES % (AUTO) 4 % (0-12); NEUTROPHILS # (AUTO) 2.2 10^3/uL (1.8-7.8); NEUTROPHILS % (AUTO) 59 % (42-75); PLATELET COUNT 203 10^3/uL (130-400); WHITE BLOOD COUNT 3.7 10^3/uL (4.3-11.0)
[2021-11-21 15:54] LABS: ALBUMIN 2.3 GM/DL (3.2-4.5); BILIRUBIN,TOTAL 0.4 MG/DL (0.1-1.0); CALCIUM 9.2 MG/DL (8.5-10.1); CREATININE SERUM 0.74 MG/DL (0.60-1.30); POTASSIUM 3.2 MMOL/L (3.6-5.0); TOTAL PROTEIN 8.1 GM/DL (6.4-8.2)
[~2021-11-22 14:46] MED LIST changes: +ONDA-106 PO; -ONDA8TAB15 PO
[2021-11-22 14:57] LABS: BILIRUBIN,URINE NEGATIVE (NEGATIVE); CLARITY,URINE CLOUDY; COLOR,URINE YELLOW; GLUCOSE, URINE (UA) NEGATIVE (NEGATIVE); KETONES,URINE NEGATIVE (NEGATIVE); LEUKOCYTE ESTERASE ,URINE 3+ (NEGATIVE); NITRITE,URINE NEGATIVE (NEGATIVE); PROTEIN,URINE 2+ (NEGATIVE)
[2021-11-22 15:04] LABS: AMORPHOUS SEDIMENT,UR FEW AMOR URATES /LPF; BACTERIA,URINE LARGE /HPF; CALCIUM OXALATE CRYSTALS,UR FEW /LPF; RBC,URINE >100 /HPF; WBC,URINE >100 /HPF
== END 2021-11-25 | disposition home or self-care (01) ==
LOC: ONC 14:46
PROVIDERS: ATTEND Internal Medicine Hematology & Oncology
DX: C90.00 Multiple myeloma not having achieved remission (principal); C79.51 Secondary malignant neoplasm of bone; E83.52 Hypercalcemia; E86.0 Dehydration; I10 Essential (primary) hypertension; R82.998 Other abnormal findings in urine; Z98.890 Other specified postprocedural states; Z85.51 Personal history of malignant neoplasm of bladder; Z92.3 Personal history of irradiation; Z85.118 Personal history of other malignant neoplasm of bronchus and lung; Z90.2 Acquired absence of lung [part of]; Z90.6 Acquired absence of other parts of urinary tract; Z92.21 Personal history of antineoplastic chemotherapy
CPT/HCPCS: 80053; 82232; 82784 ×3; 83883; 84165; 85025; G0463; 81000; 84155; 87077; 87088; 99213

== ENCOUNTER 2021-12-07 12:47 | Outpatient (RCR) | payer MEDICARE ==
[2021-12-07 13:01] LABS: BILIRUBIN,URINE NEGATIVE (NEGATIVE); CLARITY,URINE CLOUDY; COLOR,URINE ORANGE; GLUCOSE, URINE (UA) NEGATIVE (NEGATIVE); KETONES,URINE NEGATIVE (NEGATIVE); LEUKOCYTE ESTERASE ,URINE 2+ (NEGATIVE); NITRITE,URINE NEGATIVE (NEGATIVE); PROTEIN,URINE 1+ (NEGATIVE)
[2021-12-07 13:13] LABS: BACTERIA,URINE LARGE /HPF; RBC,URINE >100 /HPF; WBC,URINE >100 /HPF
[2021-12-19] MEDS ORDERED: HYDR1LIQ3 PO ×2 (17:16→17:44)
== END 2021-12-26 | disposition home or self-care (01) ==
LOC: ONC 12:47
PROVIDERS: ATTEND Internal Medicine Hematology & Oncology
DX: C90.00 Multiple myeloma not having achieved remission (principal); C79.51 Secondary malignant neoplasm of bone; E83.52 Hypercalcemia; E86.0 Dehydration; I10 Essential (primary) hypertension; Z98.890 Other specified postprocedural states; Z85.51 Personal history of malignant neoplasm of bladder; Z92.3 Personal history of irradiation; Z85.118 Personal history of other malignant neoplasm of bronchus and lung; Z90.2 Acquired absence of lung [part of]; Z90.6 Acquired absence of other parts of urinary tract; Z92.21 Personal history of antineoplastic chemotherapy; R82.998 Other abnormal findings in urine
CPT/HCPCS: 81000; 87077; 87088; 87186

== ENCOUNTER 2021-12-19 12:28 | Emergency (ER) | payer MEDICARE ==
[~2021-12-19] VITALS: Ht 177.8 cm; Wt 50.0 kg
--- NOTE | 2021-12-19 13:27 | ED General ---
General Stated Complaint: CP,SOB Source of Information: Patient Exam Limitations: Physical Impairments (labored breathing, exhaustion, difficulty hearing) (LIBORIO BATRES STUDENT) History of Present Illness Date Seen by Provider: Dec 19, 2021 Time Seen by Provider: 13:15 Initial Comments Patient is an 81yoM with history of multiple myeloma and plasmacytoma, lung adenocarcinoma status post lobectomy, bladder cancer and HTN who presents with chief complaint of diffuse body pain. Patient has been worsening for the past week and hurts everywhere. He denies fevers, chills, N/V, chest pain and diarrhea. He has not had any sick contacts and has had covid vaccine as well as booster. Patient is short of breath and struggles to communicate due to exhaustion and hearing loss. He says that his helps him with most of his communication and she will be here shortly. Palliative care staff spoke to him and patient verbalized that he would like hospice care. Patient is cachectic with labored breathing but O2 sat 95%. Timing/Duration: 1 Week Severity: Severe Associated Systoms: Shortness of Air (LIBORIO BATRES STUDENT) Allergies and Home Medications Allergies Coded Allergies: Penicillins (Verified Allergy, Intermediate, HIVES, 07/08/20) Patient Home Medication List Home Medication List Reviewed: Yes (NICK BALL MD) Amlodipine Besylate (Amlodipine Besylate) 10 Mg Tablet, 5 MG PO DAILY, (R eported) Entered as Reported by: JACKSON BAUTISTA on 01/10/19 1506 Aspirin (Aspirin EC) 81 Mg Tablet.dr, 162 MG PO DAILY, (Reported) Entered as Reported by: JAQUELINE STEVENSON on 01/14/21 1128 Dexamethasone (Dexamethasone) 4 Mg Tablet, 20 MG PO UD PRN for CHEMO TREATMENT, (Reported) Entered as Reported by: JAQUELINE STEVENSON on 01/14/21 1128 Hydrocodone/Acetaminophen (Hydrocodone-Acetamin 10-325 mg) 1 Each Tablet, 1 EA PO Q4H PRN for PAIN-MODERATE (5-7), (Reported) Entered as Reported by: JAQUELINE STEVENSON on 01/14/21 1128 Hydromorphone HCl (Dilaudid) 1 Mg/1 Ml Liquid, 2.5 MG PO Q1H PRN for PAIN-SEVERE (8-10) Prescribed by: HORTENCIA MCBRIDE on 12/19/21 1746 Lenalidomide (Revlimid) 15 Mg Capsule, 15 MG PO DAILY PRN for CHEMO TREATMENT, (Reported) Entered as Reported by: JAQUELINE STEVENSON on 01/14/21 1128 Lisinopril (Lisinopril) 40 Mg Tablet, 20 MG PO DAILY, (Reported) Entered as Reported by: RONALDO DANGELO on 11/29/15 1152 Loperamide HCl (Imodium A-D) 2 Mg Capsule, 2-4 MG PO UD PRN for DIARRHEA, (Reported) Entered as Reported by: JAQUELINE STEVENSON on 01/14/21 1128 Ondansetron HCl (Ondansetron HCl) 8 Mg Tablet, 8 MG PO Q8H PRN for NAUSEA/VOMITING-1ST LINE, (Reported) Entered as Reported by: JAQUELINE STEVENSON on 01/14/21 1128 Pantoprazole Sodium (Pantoprazole Sodium) 20 Mg Tablet.dr, 20 MG PO DAILY, (Reported) Entered as Reported by: RONALDO DANGELO on 11/29/15 1152 Review of Systems Review of Systems Constitutional: No chills, No diaphoresis, No fever EENTM: No blurred vision, No nose congestion, No throat pain Respiratory: No cough, No hemoptysis; phlegm, short of breath Cardiovascular: No chest pain, No edema Gastrointestinal: No abdominal pain, No constipation, No diarrhea, No melena, No nausea, No vomiting Genitourinary: No dysuria, No frequency Musculoskeletal: back pain, joint pain, muscle pain Skin: no symptoms reported Psychiatric/Neurological: No Symptoms Reported Hematologic/Lymphatic: No Symptoms Reported Immunological/Allergic: no symptoms reported (MICHAELLECellcaAKASHLIBORIO Stayful STUDENT) Past Rkrawvu-Xfjvbn-Ebdvop Hx Immunizations Up To Date Tetanus Booster (TDap): Unknown PED Vaccines UTD: No (LIBORIO BATRES Stayful STUDENT) Seasonal Allergies Seasonal Allergies: Yes (GISELIci [place] STUDENT) Past Medical History Surgeries: Yes (TURBT, RIGHT HIP REPLACEMENT, PARTIAL RIGHT LOWER LUNG REPAIRED, TURP, ) Respiratory: No (part of R lung removed) Cardiac: Yes Hypertension Neurological: No Reproductive Disorders: No Sexually Transmitted Disease: No Genitourinary: Yes (BLADDER TUMOR) Gastrointestinal: Yes Gastroesophageal Reflux Musculoskeletal: Yes (RIGHT HIP REPLACEMENT ) Arthritis Endocrine: No HEENT: No Loss of Vision: Denies Hearing Impairment: Hard of Hearing Cancer: Yes Bladder, Lung What Type of Treatment Did You: Chemotherapy, Surgical Intervention Psychosocial: No Integumentary: No Blood Disorders: No Adverse Reaction/Blood Tranf: No (N/A) (LIBORIO BATRES Stayful STUDENT) Physical Exam Vital Signs Vital Signs - First Documented 12/19/21 12/19/21 12:45 14:25 Temp 36.8 Pulse 80 Resp 22 B/P (MAP) 147/97 (114) Pulse Ox 99 O2 Delivery Room Air O2 Flow Rate 2.00 (NICK BALL MD) Vital Signs Capillary Refill : (LIBORIO BATRES Stayful STUDENT) Height, Weight, BMI Height: 5'10.00" Weight: 155lbs. 0.0oz. [id number]; 15.12 BMI Method: General Appearance: Chronically ill, Cachetic, Mild Distress HEENT: PERRL/EOMI, Pharynx Normal; No Tonsillar Exudate Neck: Non Tender, Limited Range of Motion Respiratory: Chest Non Tender, Decreased Breath Sounds, Rales, Wheezing Cardiovascular: No Edema, No JVD, Normal Peripheral Pulses Gastrointestinal: Normal Bowel Sounds, Non Tender, Soft Back: No CVA Tenderness, No Vertebral Tenderness Extremity: No Calf Tenderness, No Pedal Edema, Slow Capillary Refill Neurologic/Psychiatric: Alert, Oriented x3, No Motor/Sensory Deficits, call center specialist II- XII Norm as Tested Skin: Pallor Lymphatic: No Adenopathy (LIBORIO BATRES Stayful STUDENT) Progress/Results/Core Measures Suspected Sepsis SIRS Temperature: Pulse: Respiratory Rate: Blood Pressure / Mean: (LIBORIO BATRES Stayful STUDENT) Results/Orders My Orders Orders - NICK BALL MD Chest 1 View, Ap/Pa Only (12/19/21 13:38) Fentanyl Inj (Sublimaze Injection) (12/19/21 13:45) Glycopyrrolate Injection (Robinul Inject (12/19/21 13:45) Fentanyl Inj (Sublimaze Injection) (12/19/21 15:25) Fentanyl Inj (Sublimaze Injection) (12/19/21 16:00) (NICK BALL MD) Medications Given in ED (NICK BALL MD) Vital Signs/I&O 12/19/21 12/19/21 12/19/21 12:45 14:25 15:38 Temp 36.8 Pulse 80 100 Resp 22 16 B/P (MAP) 147/97 (114) 142/112 Pulse Ox 99 95 98 O2 Delivery Room Air Nasal Cannula Nasal Cannula O2 Flow Rate 2.00 2.00 (NICK BALL MD) Vital Signs/I&O Capillary Refill : (LIBORIO BATRES MED STUDENT) Progress Note : Time: 14:47 Progress Note 81-year-old male presents to the emergency room by ambulance chief complaint of severe all over body pain related to multiple cancers. Patient is not currently prescribed any narcotic pain medications. Per his son who is at the bedside he has had a pretty significant decline over the last 24 hours. Patient is cachectic/ill appearing. He has " rattle" respirations. He is quite hard of hearing, but does seem to answer appropriately. He is agreeable to a little fentanyl. We will obtain a chest x-ray. He does not really need much of a lab evaluation, he and his family are interested in hospice referral today. Shortly after arrival the palliative care nurse Michael PINA was called down to the ED. She had long discussion with the patient and family, they wish to be referred to [facility]. She is putting in a referral. Patient already has a hospital bed at home. Both the patient and the family would like discharged home. (NICK BALL MD) ECG Initial ECG Impression Date: Dec 20, 2021 Initial ECG Impression Time: 12:52 Initial ECG Rate: 78 Initial ECG Rhythm: Normal Sinus Initial ECG Intervals: [place] (55) Initial ECG Intervals QRS 75 Qtc 445 Initial ECG Impression: Normal Comment no ectopy, no ST e;evations or depressions (NICK BALL MD) Diagnostic Imaging Diagonstic Imaging: Xray Plain Films/CT/US/NM/MRI: chest Comments [facility] [place], [place] NAME: WILMER MANLEYManinder Hernandez [facility] REC#: [id number] PT STATUS: REG ER : 1940 PHYSICIAN: NICK BALL MD ADMIT DATE: 12/19/21/ER Signed Date of Exam:12/19/21 CHEST 1 VIEW, AP/PA ONLY INDICATION: Chest pain and shortness of breath. EXAMINATION: Portable chest at 1:56 p.m. FINDINGS: There appears to be some infiltrate at the left lung base. There is some volume loss in both lung bases. There is no effusion or pneumothorax. IMPRESSION: Volume loss in both lung bases with some infiltrate at left lung base suspicious for pneumonia. Dictated by: Dictated on workstation # [id number] Dict: 12/19/21 1358 Trans: 12/19/21 1428 [id number] Interpreted by: PHILLIP CONSTANTINO MD Electronically signed by: PHILLIP CONSTANTINO MD 12/19/21 1428 (NICK BALL MD) Departure Impression Primary Impression: Musculoskeletal pain Additional Impression: Encounter for end of life care Disposition: HOME, SELF-CARE Condition: Stable/Unchanged Departure-Patient Inst. Decision time for Depature: 14:50 (NICK BALL MD) Referrals: CHRISTINA PÉREZ MD (PCP/Family) Primary Care Physician Patient Instructions: Palliative Care Add. Discharge Instructions: Hospice referral has been sent. Medications will be managed by Hospice nurses. Please reach out to [facility] with any questions. You are always welcome to return at any time. Scripts Hydromorphone HCl (Dilaudid) 1 Mg/1 Ml Liquid 2.5 MG PO Q1H PRN for PAIN-SEVERE (8-10) for 7 Days, #250 ML 0 Refills Prov: HORTENCIA MCBRIDE MD 12/19/21 Verification and Attestation of Medical Student E/M Service A medical student performed and documented this service in my presence. I reviewed and verified all information documented by the medical student and made modifications to such information, when appropriate. I personally performed the physical exam and medical decision making. Nick Ball, Dec 20, 2021,06:52 (NICK BALL MD) LIBORIO BATRES MED STUDENT Dec 19, 2021 13:27 NICK BALL MD Dec 19, 2021 14:52
[2021-12-19] MEDS ORDERED: fentaNYL INJ 100 MCG/2 ML AMP IVP ONE ×2 (13:45→16:00)
[2021-12-19] MEDS ORDERED: GLYCOPYRROLATE 0.2 MG/ML (ROBINUL) 2 ML VIAL IV ONE (13:45)
--- NOTE | 2021-12-19 14:01 | Diagnostic Imaging Report ---
INDICATION: Chest pain and shortness of breath. EXAMINATION: Portable chest at 1:56 p.m. FINDINGS: There appears to be some infiltrate at the left lung base. There is some volume loss in both lung bases. There is no effusion or pneumothorax. IMPRESSION: Volume loss in both lung bases with some infiltrate at left lung base suspicious for pneumonia. Dictated by: Dictated on workstation # [id number]
[2021-12-19] MEDS ORDERED: fentaNYL INJ 100 MCG/2 ML AMP ONE (15:25)
[2021-12-19 15:38] VITALS: BP 142/112
[2021-12-19] MEDS ORDERED: HYDR1LIQ3 PO ×2 (17:16→17:44)
== END 2021-12-19 15:38 | disposition home or self-care (01) ==
LOC: EDUNIT# 12:28 → ER 12:46
DX: M79.18 Myalgia, other site (principal); I10 Essential (primary) hypertension; K21.9 Gastro-esophageal reflux disease without esophagitis; Z51.5 Encounter for palliative care; Z79.899 Other long term (current) drug therapy; Z79.52 Long term (current) use of systemic steroids
CPT/HCPCS: 71045; 93005; 96374; 96375